=== PATIENT | female | born 1950 | race Two or more races ===

== ENCOUNTER → 2016-11-15 | Outpatient (CLI) | payer MEDICARE, BC ==
--- NOTE | 2016-11-15 18:49 | REP ---
LEFT LOWER EXTREMITY DUPLEX DOPPLER VENOUS ULTRASOUND WITH EVALUATION FOR VENOUS REFLUX: Real-time compression and duplex Doppler interrogation of left lower extremity deep venous system is performed. Left common femoral, superficial femoral and popliteal veins are fully compression with transducer pressure and demonstrate normal spontaneous and phasic flow without evidence of deep venous thrombosis. Evaluation for venous reflux in the left lower extremity demonstrates no reflux in the left common femoral vein, superficial femoral vein, or popliteal vein. There is an anterior accessory greater saphenous vein present. This measures 2 mm in diameter. There is reflux in that vein 1.7 seconds duration. There is reflux in the great saphenous vein at the saphenofemoral junction which measures 8 mm, duration 5.17 seconds. There is reflux in the greater saphenous vein at the midthigh level, AP diameter 10 mm. Duration 2.7 seconds. There is reflux in the greater saphenous vein at the level of the knee. AP diameter 6 mm. Duration 8.65 seconds. There is no reflux in the lesser saphenous vein which measures 3 mm in AP dimension. Multiple collateral vessels communicate with the greater saphenous vein which also demonstrate reflux. These collateral vessels communicate with the left lower extremity ulceration. Signed by Fercho Arcos MD 11/16/2016 04:38 P
== END ==
LOC: M RAD 12:54
PROVIDERS: ATTEND Surgery
DX: I87.312 Chronic venous hypertension (idiopathic) with ulcer of left lower extremity (principal)

== ENCOUNTER → 2016-11-30 | Outpatient (CLI) | payer MEDICARE, BC ==
--- NOTE | 2016-12-01 16:15 | REP ---
Left lower extremity arterial Doppler ultrasound: History: Peripheral vascular disease. Findings: Ankle brachial index could not be achieved because of vessel were noncompressible. Dorsalis pedis pulse persisted despite blood pressure cuff greater than 260. Triphasic flow is observed in the external iliac artery on the left. Monophasic flow was observed in the common femoral artery on the left and in all of the distal visualized arteries in the left lower extremity. The wave form and velocity images for the proximal superficial femoral and proximal common femoral artery were inadvertently or erroneously deleted by the ultrasound machine computer. The patient was contacted to return to the department however she declined at least for the time being. Peak systolic flow velocity in the profunda femoral artery is measured at 123.6 cm/sec. In the mid SFA peak systolic flow velocity was 21 centimeters per second. Distal SFA PSV 46, popliteal PSV 85, anterior tibial artery PSV 72, tibioperoneal trunk 38, proximal posterior tibial artery 33, no flow seen in the distal posterior tibial artery, anterior tibial artery distally 22. Impression: Monophasic flow seen throughout the left lower extremity distal to and including the common femoral artery. Triphasic normal flow was observed in the external iliac artery. This strongly suggests a potentially significant stenosis in the distal external iliac region. No flow seen in the distal posterior tibial artery suspicious for occlusion. 2 to 1 velocity ratio between distal SFA and popliteal may reflect greater than 50% stenosis. Consider MR angiography or contrast angiography. Signed by Yanick Waterman MD 12/01/2016 06:37 P
== END ==
LOC: M RAD 13:40
PROVIDERS: ATTEND Surgery Vascular Surgery
DX: I73.9 Peripheral vascular disease, unspecified (principal)

== ENCOUNTER → 2016-12-15 | Outpatient (CLI) | payer MEDICARE, BC ==
[2016-12-15 16:16] LABS: CALCIUM LEVEL 8.5 MG/DL (8.8-10.2); CREATININE FOR GFR 1.96 MG/DL (0.55-1.02); GLOMERULAR FILTRATION RATE 27.2 (>45); POTASSIUM SERUM 4.7 MEQ/L (3.5-5.1)
[2016-12-15 18:08] LABS: MEAN CORPUSCULAR HEMOGLOBIN 32.6 pg (27.0-33.0); MEAN CORPUSCULAR HGB CONC 35.1 g/dl (32.0-36.5); MEAN CORPUSCULAR VOLUME 93.1 fl (80.0-96.0); RED CELL DISTRIBUTION WIDTH 13.1 % (11.5-14.5); WHITE BLOOD COUNT 8.5 K/mm3 (4.0-10.0)
== END ==
LOC: M LAB 14:49
PROVIDERS: ATTEND Surgery Vascular Surgery
DX: I70.244 Atherosclerosis of native arteries of left leg with ulceration of heel and midfoot (principal)

== ENCOUNTER → 2016-12-21 | Outpatient (CLI) | payer MEDICARE, BC ==
[~2016-12-21] MED LIST: HEPARIN 1,000 UNITS/ML 10ML VIAL (FOR RADIOLOGY& DIALYSIS ONLY) As Ordered ONE; ISOVUE-300 61% 50ML VIAL (Q9967) As Ordered ONE; MIDAZOLAM INJ 2 MG/2 ML VIAL (J2250) As Ordered ONE; PROTAMINE SULF INJ 50 MG/5 ML VIAL (J2720) As Ordered ONE; fentaNYL 100 MCG/2 ML INJECTION (J3010) As Ordered ONE
--- NOTE | 2016-12-21 10:31 | REPKIM ---
DATE OF PROCEDURE: 12/21/2016 PREPROCEDURE DIAGNOSES: Chronic renal insufficiency. Left lower extremity venostasis ulceration. Left lower extremity superficial femoral arterial atherosclerotic occlusive disease. Left lower extremity valvular insufficiency in the greater saphenous vein and accessory greater saphenous vein. POSTPROCEDURE DIAGNOSES: Chronic renal insufficiency. Left lower extremity venostasis ulceration. Left lower extremity superficial femoral arterial atherosclerotic occlusive disease. Left lower extremity valvular insufficiency in the greater saphenous vein and accessory greater saphenous vein. PROCEDURE: Selective left common femoral artery catheter placement with angiogram. Selective left superficial femoral artery catheter placement with angiogram. Left common femoral artery angioplasty with a 6 x 200 mm and 7 x 150 mm balloons. Left superficial femoral artery angioplasty with 6 x 200 and 7 x 150 mm balloons. Recanalization of occluded left superficial femoral artery. MYNX closure of the right common femoral arteriotomy. SURGEON: Dr. Mateo Durbin. TOBACCO CHECKOUT CLERK: Angelika Watters and Karen Salinas. ANESTHESIA: Local with sedation with 1 mg of Versed, 50 mcg of fentanyl and 10 mL of 2% lidocaine. FLUORO TIME: 5.4 minutes. CONTRAST: 7 mL of Isovue. TOTAL EXPOSURE: 133.3 milligray. Sedation time was from 8:15 a.m. to 9:10 a.m. with the sedation and cardiopulmonary monitoring performed by the RN in the room under my direct supervision and direction. I was present for and directed the entire case. HEPARIN: 7000 units, rhodamine 50 mg. IMPLANTS: Right common femoral arteriotomy closure with a #6-Portuguese MYNX closure device. COMPLICATIONS: None. DRAINS: None. SPECIMENS: None. INDICATION: The patient is a 66-year-old female with bilateral lower extremity valvular insufficiency with nonhealing left lower extremity venostasis ulcer. The patient has previously undergone angioplasty and stenting of the left superficial femoral artery. The patient has nonhealing of her left lower extremity wound and underwent an ultrasound which showed monophasic flow from the common femoral artery and throughout the remainder of the left lower extremity. The patient will undergo an angiograph with possible angioplasty and/or stent. Risks, benefits and alternative treatment options were discussed with the patient. Benefits included but were not limited to gnosticist of blood flow to the left lower extremity with healing of the venostasis ulcer. Alternative treatment options including but were not limited to no intervention. Risks included but were not limited to infection, bleeding, renal failure requiring hemodialysis, retroperitoneal hematoma, possible need for open surgical intervention, complications related to sedation, cerebral vascular accident, myocardial infarction, pulmonary embolus, deep venous thrombosis, loss of limb, loss of life, and poor outcome. The patient's questions were answered. The patient voices understanding of these risks, benefits and alternative treatment options. The patient accepts these risks and agrees to proceed with a left lower extremity angiogram with possible angioplasty and/or stent. DESCRIPTION OF PROCEDURE: Patient was taken to the angiography suite, placed supine on the angiography room table and then prepped and draped in a standard surgical fashion. A time-out was then conducted by myself and the team members within the room confirming the correct patient, procedure and laterality. The common femoral artery was then cannulated with an entry needle after anesthetizing the overlying skin with 2% lidocaine. The patient had a large pannus and a long needle was required to access the femoral artery. The [employer] wire was then advanced through the entry needle, which was up-sized to a #5-Portuguese sheath. An Omni Flush catheter was advanced up and over the bifurcation and placed in the left common femoral artery and an angiogram was performed. This showed complete occlusion of the superficial femoral artery at its origin with reconstitution of the superficial femoral artery just above the previously placed stent via collaterals. There was instant stenosis of approximately 60%. There was no visualization below this level secondary to contrast limitations. A superficial femoral artery was then recannulized with re-entry into the superficial femoral artery. A catheter was placed in the superficial femoral artery and an angiogram performed confirming intraluminal positioning, which was noted, after which the superficial femoral and common femoral artery were angioplastied with a 6 x 200 mm balloon. A completion angiogram showed residual stenosis at the junction of the superficial femoral artery and extending along the superficial femoral artery to the previously placed stent. The common femoral and superficial femoral artery were further angioplastied with a 7 x 150 mm balloon with a completion angiogram showing resolution of the stenosis and good flow through the common femoral into the superficial femoral artery and down the mid thigh, where again, no further visualization was performed due to contrast limitations. The catheters and wires were removed and a MYNX closure device was used to close the arteriotomy and the right common femoral artery with an additional 10 minutes of adjunctive pressure applied for hemostasis. Dressings were then applied. The patient tolerated the procedure well. All instrument, sponge, and needle counts were correct at the end of the case. There were no complications. Dr. Durbin was present for and directed the entire case. The patient was transferred to the holding area and subsequently discharged in stable condition. RADIOLOGIC SUPERVISION INTERPRETATION: The initial selective left common femoral artery catheter angiogram showed retrograde filling of the external, internal and common iliac arteries which were widely patent. The common femoral artery showed some calcific disease in its mid portion but there appeared to be no significant occlusive disease. The profunda femoris artery was small in caliber and showed mild luminal irregularities with collaterals reconstituting the superficial femoral artery just above the previously placed stent. The superficial femoral artery occluded at its origin. There was no aortogram or distal runoff performed due to contrast limitations. The superficial femoral artery was then recannulized with re-entry into the patent superficial femoral artery just above the stent. A catheter was placed in the superficial femoral artery and an angiogram performed confirming intraluminal positioning after which the superficial femoral and common femoral arteries were angioplastied with a 6 x 200 mm balloon. The followup angiogram showed residual stenosis in the superficial femoral artery from the stent extending back to the origin at the common femoral artery. The common femoral artery and superficial femoral artery were then angioplastied with a 7 x 150 mm balloon with a prolonged inflation time after which the followup angiogram showed resolution of the stenosis with good flow through the common femoral artery into the superficial femoral artery and into the upper thigh with no visualization below this point, again secondary to the patient's chronic renal insufficiency and contrast limitations. A MYNX closure device was used to close the arteriotomy in the right common femoral artery.
== END | disposition home or self-care (01) ==
LOC: M IRPRO 06:54
PROVIDERS: ATTEND Surgery Vascular Surgery
DX: I70.25 Atherosclerosis of native arteries of other extremities with ulceration (principal); L98.499 Non-pressure chronic ulcer of skin of other sites with unspecified severity; I87.2 Venous insufficiency (chronic) (peripheral); N18.9 Chronic kidney disease, unspecified
CPT/HCPCS: 37224; 75710; 99152; 99153; C1725; C1760; C1769; C1887; C1894; J2250; J2720; J3010; Q9967

== ENCOUNTER → 2017-01-31 | Outpatient (REF) | payer MEDICARE, BC | LOC: M LAB REF 16:27 | PROVIDERS: ATTEND Surgery | DX: E11.621 Type 2 diabetes mellitus with foot ulcer (principal) ==

== ENCOUNTER → 2017-02-04 | Outpatient (CLI) | payer MEDICARE, BC ==
--- NOTE | 2017-02-04 12:03 | REP ---
Left lower extremity arterial Doppler duplex ultrasound: History: Status post angioplasty on the left. Comparison study is from November 30, 2016. This prior study showed evidence suggestive of stenosis in the distal external iliac. Comparison is made with imaging from December 21, 2016. Findings: Ankle brachial indices could not be obtained because of noncompressible distal vessels. Monophasic flow is again observed throughout the left lower extremity arterial tracings from common femoral artery distal. Image and study quality were inhibited by patient body habitus and lower extremity edema. There appears to be stent material in the superficial femoral artery proximally. Velocity chart: Left leg: Left BONER MEAT 151 cm/s Left profunda 132 Proximal SFA 100 proximally to 190 Mid SFA 104 Distal SFA 185 Popliteal 190 Proximal APA 57 t Tibioperoneal trunk 146 Proximal posterior tibial artery not seen. Distal posterior tibial artery question collateral 10 Anterior tibial artery distally 42 Impression: Limited image quality due to patient body habitus and lower extremity edema. Abnormal monophasic flow persists in the left lower extremity arterial system. Signed by Yanick Waterman MD 02/04/2017 01:13 P
== END ==
LOC: M RAD 09:23
PROVIDERS: ATTEND Surgery Vascular Surgery
DX: I70.212 Atherosclerosis of native arteries of extremities with intermittent claudication, left leg (principal)

== ENCOUNTER → 2017-03-01 | Outpatient (REF) | payer MEDICARE, BC ==
[2017-03-01 15:00] LABS: CREATININE FOR GFR 1.7 MG/DL (0.55-1.02)
== END ==
LOC: M LAB REF 13:38
PROVIDERS: ATTEND Surgery
DX: E11.621 Type 2 diabetes mellitus with foot ulcer (principal); L97.822 Non-pressure chronic ulcer of other part of left lower leg with fat layer exposed

== ENCOUNTER → 2017-03-16 | Outpatient (CLI) | payer MEDICARE, BC ==
[~2017-03-16] MED LIST changes: -HEPARIN 1,000 UNITS/ML 10ML VIAL (FOR RADIOLOGY& DIALYSIS ONLY) As Ordered ONE; -ISOVUE-300 61% 50ML VIAL (Q9967) As Ordered ONE; -MIDAZOLAM INJ 2 MG/2 ML VIAL (J2250) As Ordered ONE; +PROHANCE 279.3MG/ML 15ML VIAL (A9576) As Ordered ONE; -PROTAMINE SULF INJ 50 MG/5 ML VIAL (J2720) As Ordered ONE; -fentaNYL 100 MCG/2 ML INJECTION (J3010) As Ordered ONE
--- NOTE | 2017-03-16 20:02 | REP ---
MRI LEFT ANKLE WITH AND WITHOUT CONTRAST: Multiple sequences obtained prior to and following the intravenous administration of 24.5 mL ProHance. Reportedly there is an ulcer at the left heel. Diffuse superficial soft tissue edema is seen. This is more so medially. There is some mild scattered ill-defined enhancement in the medial soft tissues suggesting an element of cellulitis. No abscess collection is seen. The distal tibia and fibula demonstrate normal marrow signal, as does the talus and calcaneus. There is no abnormal marrow enhancement and no evidence of osteomyelitis. The visualized tendons and ligaments at the ankle appear intact. IMPRESSION: Superficial soft tissue edema at the ankle with mild ill-defined enhancement in the medial soft tissues suggesting an element of cellulitis. There also appears to be some cellulitis in the region of the soft tissues of the heel. No evidence of osteomyelitis or abscess. Signed by Fercho Arcos MD 03/17/2017 08:31 P
--- NOTE | 2017-03-16 20:16 | REP ---
MRI LEFT FOOT WITH AND WITHOUT CONTRAST: TECHNIQUE: Multiple sequences obtained in the axial, coronal and sagittal planes prior to and following the intravenous administration of 24.5 mL ProHance. I do not see significant marrow edema. There is no abnormal marrow enhancement. There is no evidence of osteomyelitis in the bones of the foot. Plantar tendon is intact. Flexor and extensor tendons of the foot appear intact with no tenosynovitis. There is scattered ill-defined edema in the superficial soft tissues more so in the dorsal aspect of the midfoot and forefoot. Some of these areas demonstrate ill-defined enhancement suggesting cellulitis. No abscess or other fluid collection is seen. IMPRESSION: Soft tissue edema with areas of enhancement dorsally in the mid to forefoot and also medially in the hindfoot, and in the heel. This suggests cellulitis. No abscess or osteomyelitis of the left foot. Signed by Fercho Arcos MD 03/17/2017 08:31 P
== END ==
LOC: M RAD 09:54
PROVIDERS: ATTEND Surgery
DX: E11.621 Type 2 diabetes mellitus with foot ulcer (principal); M85.872 Other specified disorders of bone density and structure, left ankle and foot
CPT/HCPCS: 73720; 73723; A9576

== ENCOUNTER → 2017-04-22 | Outpatient (CLI) | payer MEDICARE, BC ==
[~2017-04-22] MED LIST changes: +HEPARIN 1,000 UNITS/ML 10ML VIAL (FOR RADIOLOGY& DIALYSIS ONLY) As Ordered; +ISOVUE-300 61% 50ML VIAL (Q9967) As Ordered; +LIDOCAINE 2% MDV 20 ML VIAL As Ordered; +MIDAZOLAM INJ 2 MG/2 ML VIAL (J2250) As Ordered; -PROHANCE 279.3MG/ML 15ML VIAL (A9576) As Ordered ONE; +fentaNYL 100 MCG/2 ML INJECTION (J3010) As Ordered
== END | disposition home or self-care (01) ==
LOC: M IRPRO 09:06
DX: I77.9 Disorder of arteries and arterioles, unspecified (principal); L97.929 Non-pressure chronic ulcer of unspecified part of left lower leg with unspecified severity; I87.2 Venous insufficiency (chronic) (peripheral)
CPT/HCPCS: 37225

== ENCOUNTER → 2017-05-13 | Outpatient (CLI) | payer MEDICARE, BC ==
[~2017-05-13] MED LIST changes: +ACETAMINOPHEN 325 MG TAB As Ordered; -LIDOCAINE 2% MDV 20 ML VIAL As Ordered; +PROTAMINE SULF INJ 50 MG/5 ML VIAL (J2720) As Ordered
== END | disposition home or self-care (01) ==
LOC: M IRPRO 06:43
DX: I70.291 Other atherosclerosis of native arteries of extremities, right leg (principal); I87.2 Venous insufficiency (chronic) (peripheral); I87.391 Chronic venous hypertension (idiopathic) with other complications of right lower extremity; L03.115 Cellulitis of right lower limb
CPT/HCPCS: 36247

== ENCOUNTER 2017-06-13 15:04 | Emergency (ER) | payer MEDICARE, BC ==
[2017-06-13 16:10] LABS: BASO % 0.5 % (0.0-1.0); EOS # 0.3 10^3/uL (0.0-0.50); EOS % 4.1 % (0.0-3.0); HEMATOCRIT 31.4 % (36.0-47.0); HEMOGLOBIN 10.2 g/dl (12.0-16.0); IMMATURE GRANULOCYTE % 0.3 % (0-3.0); LYMPH % 26.6 % (24.0-44.0); MEAN CORPUSCULAR HEMOGLOBIN 31.3 pg (27.0-33.0); MEAN CORPUSCULAR HGB CONC 32.5 g/dl (32.0-36.5); MEAN CORPUSCULAR VOLUME 96.3 fl (80.0-96.0); MONO # 0.6 10^3/uL (0.0-0.8); MONO % 7.2 % (0.0-5.0); NEUTROPHILS # 4.7 10^3/uL (1.8-7.7); NEUTROPHILS % 61.3 % (36.0-66.0); PLATELET COUNT, AUTOMATED 227 10^3/uL (150-450); RED BLOOD COUNT 3.26 10^6/uL (4.00-5.40); RED CELL DISTRIBUTION WIDTH 14.2 % (11.5-14.5); WHITE BLOOD COUNT 7.6 10^3/uL (4.0-10.0)
[2017-06-13 16:19] LABS: ANION GAP 8 MEQ/L (8-16); BLOOD UREA NITROGEN 43 MG/DL (7-18); CALCIUM LEVEL 9.1 MG/DL (8.8-10.2); CARBON DIOXIDE LEVEL 26 MEQ/L (21-32); CHLORIDE LEVEL 108 MEQ/L (98-107); CREATININE FOR GFR 1.36 MG/DL (0.55-1.30); GLOMERULAR FILTRATION RATE 41.3 (>45); GLUCOSE, FASTING 62 MG/DL (70-100); POTASSIUM SERUM 4.7 MEQ/L (3.5-5.1); SODIUM LEVEL 142 MEQ/L (136-145)
[2017-06-13 17:01] LABS: APPEARANCE, URINE CLEAR (CLEAR); BACTERIA, URINE AUTO NEGATIVE (NEGATIVE); BILIRUBIN, URINE AUTO NEGATIVE (NEGATIVE); BLOOD, URINE BLOOD NEGATIVE (NEGATIVE); COLOR, URINE STRAW (YELLOW); GLUCOSE, URINE (UA) AUTO NEGATIVE (NEGATIVE); KETONE, URINE AUTO NEGATIVE (NEGATIVE); LEUKOCYTE ESTERASE, URINE AUTO NEGATIVE (NEGATIVE); NITRITE, URINE AUTO NEGATIVE (NEGATIVE); PROTEIN, URINE AUTO NEGATIVE (NEGATIVE); RBC, URINE AUTO 1 /HPF (0-3); SPECIFIC GRAVITY URINE AUTO 1.014 (1.002-1.035); SQUAMOUS EPITHELIAL CELL UR AU 1 /HPF (0-6); UROBILINOGEN, URINE AUTO 0.2 mg/dL (0.0-2.0); WBC, URINE AUTO 0 /HPF (0-3)
== END 2017-06-13 17:46 | disposition home or self-care (01) ==
LOC: M ED 15:04
DX: I10 Essential (primary) hypertension (principal); R00.1 Bradycardia, unspecified; I44.0 Atrioventricular block, first degree; E10.9 Type 1 diabetes mellitus without complications; Z95.5 Presence of coronary angioplasty implant and graft; Z79.4 Long term (current) use of insulin; Z79.899 Other long term (current) drug therapy; Z88.8 Allergy status to other drugs, medicaments and biological substances
CPT/HCPCS: 93005

== ENCOUNTER → 2017-08-03 | Outpatient (CLI) | payer MEDICARE, BC | LOC: M RAD 09:47 | DX: I70.249 Atherosclerosis of native arteries of left leg with ulceration of unspecified site (principal) | CPT/HCPCS: 93923 ==

== ENCOUNTER 2017-08-26 07:54 | Inpatient (IN) | payer MEDICARE, BC ==
[~2017-08-26 07:54] MED LIST changes: -ACETAMINOPHEN 325 MG TAB As Ordered; -MIDAZOLAM INJ 2 MG/2 ML VIAL (J2250) As Ordered; -PROTAMINE SULF INJ 50 MG/5 ML VIAL (J2720) As Ordered; -fentaNYL 100 MCG/2 ML INJECTION (J3010) As Ordered
[2017-08-26] MEDS ORDERED: MIDAZOLAM INJ 2 MG/2 ML VIAL (J2250) As Ordered (09:38)
[2017-08-26] MEDS ORDERED: fentaNYL 100 MCG/2 ML INJECTION (J3010) As Ordered (09:38)
[2017-08-26] MEDS ORDERED: ONDANSETRON 4MG/2ML VIAL (J2405) IV (16:15)
[2017-08-26] MEDS ORDERED: MOM 30ML SUSPENSION UDC PO (16:15)
[2017-08-26] MEDS ORDERED: ACETAMINOPHEN TAB 650MG DOSE (2X325MG) PO (16:15)
[2017-08-26] MEDS ORDERED: BISACODYL 10 MG SUPP PR (16:15)
[2017-08-26 18:05] LABS: BASO % 0.3 % (0.0-1.0); EOS # 0.2 10^3/uL (0.0-0.50); EOS % 1.5 % (0.0-3.0); HEMATOCRIT 33.1 % (36.0-47.0); HEMOGLOBIN 10.9 g/dl (12.0-15.5); IMMATURE GRANULOCYTE % 0.4 % (0-3.0); LYMPH # 1.2 10^3/uL (1.5-4.5); LYMPH % 12.1 % (24.0-44.0); MEAN CORPUSCULAR HEMOGLOBIN 30.4 pg (27.0-33.0); MEAN CORPUSCULAR HGB CONC 32.9 g/dl (32.0-36.5); MEAN CORPUSCULAR VOLUME 92.5 fl (80.0-96.0); MONO # 0.6 10^3/uL (0.0-0.8); MONO % 6.5 % (0.0-5.0); NEUTROPHILS # 7.8 10^3/uL (1.8-7.7); NEUTROPHILS % 79.2 % (36.0-66.0); PLATELET COUNT, AUTOMATED 252 10^3/uL (150-450); RED BLOOD COUNT 3.58 10^6/uL (4.00-5.40); RED CELL DISTRIBUTION WIDTH 11.8 % (11.5-14.5); WHITE BLOOD COUNT 9.9 10^3/uL (4.0-10.0)
[2017-08-26 18:22] LABS: ALBUMIN 3.1 GM/DL (3.2-5.2); ALKALINE PHOSPHATASE 59 U/L (45-117); ALT/SGPT 12 U/L (12-78); ANION GAP 5 MEQ/L (8-16); AST/SGOT 9 U/L (7-37); BILIRUBIN,TOTAL 0.4 MG/DL (0.2-1.0); BLOOD UREA NITROGEN 48 MG/DL (7-18); CALCIUM LEVEL 8.9 MG/DL (8.8-10.2); CARBON DIOXIDE LEVEL 28 MEQ/L (21-32); CHLORIDE LEVEL 105 MEQ/L (98-107); CREATININE FOR GFR 1.47 MG/DL (0.55-1.30); GLOMERULAR FILTRATION RATE 37.7 (>45); GLUCOSE, FASTING 134 MG/DL (70-100); POTASSIUM SERUM 4.4 MEQ/L (3.5-5.1); SODIUM LEVEL 138 MEQ/L (136-145); TOTAL PROTEIN 7.5 GM/DL (6.4-8.2)
[2017-08-26] MEDS: SENOKOT S TAB PO (20:00)
[2017-08-26] MEDS: DOCUSATE SODIUM 100 MG CAP PO (20:00)
[2017-08-26] MEDS: PIPERACILLIN/TAZOBACTAM SOD 3.375 GM in D5W MINI-BAG PLUS 50 ML IV (20:01)
[2017-08-27] MEDS: PIPERACILLIN/TAZOBACTAM SOD 3.375 GM in D5W MINI-BAG PLUS 50 ML IV ×4 (02:04→22:10)
[2017-08-27 06:54] LABS: BEDSIDE GLUCOSE 117 MG/DL (80-115)
[2017-08-27] MEDS: DOCUSATE SODIUM 100 MG CAP PO ×2 (09:00→20:11)
[2017-08-27] MEDS: SENOKOT S TAB PO ×2 (09:00→20:11)
[2017-08-27 20:35] LABS: BEDSIDE GLUCOSE 233 MG/DL (80-115)
[2017-08-28] MEDS: PIPERACILLIN/TAZOBACTAM SOD 3.375 GM in D5W MINI-BAG PLUS 50 ML IV ×4 (03:08→19:51)
[2017-08-28] MEDS: LEVOTHYROXINE 25MCG TABLET (0.025MG) PO (06:00)
[2017-08-28] MEDS: SENOKOT S TAB PO ×2 (08:50→19:51)
[2017-08-28] MEDS: DOCUSATE SODIUM 100 MG CAP PO ×2 (08:50→19:51)
[2017-08-28] MEDS: FERROUS SULFATE 325MG TAB PO (10:24)
[2017-08-28] MEDS: LOSARTAN 50 MG TAB PO (10:24)
[2017-08-28] MEDS: hydroCHLOROthiazide 12.5 MG CAPSULE PO (10:24)
[2017-08-28] MEDS: LEVEMIR (INSULIN DETEMIR) 1 UNITS/0.01ML SC (10:25)
[2017-08-28] MEDS: FUROSEMIDE 40 MG TAB PO (10:25)
[2017-08-28] MEDS: VITAMIN D 1,000 INTERNATIONAL UNITS TABLET PO (10:25)
[2017-08-28] MEDS: PENTOXIFYLLINE 400 MG TAB PO ×2 (14:47→19:51)
[2017-08-28] MEDS: SIMVASTATIN 40 MG TAB PO (19:51)
[2017-08-28] MEDS: ASPIRIN ENTERIC 325 MG TAB PO (19:51)
[2017-08-29] MEDS: PIPERACILLIN/TAZOBACTAM SOD 3.375 GM in D5W MINI-BAG PLUS 50 ML IV ×4 (02:38→19:53)
[2017-08-29] MEDS: LEVOTHYROXINE 25MCG TABLET (0.025MG) PO (05:46)
[2017-08-29] MEDS: LEVEMIR (INSULIN DETEMIR) 1 UNITS/0.01ML SC (08:51)
[2017-08-29] MEDS: hydroCHLOROthiazide 12.5 MG CAPSULE PO (08:51)
[2017-08-29] MEDS: PENTOXIFYLLINE 400 MG TAB PO ×2 (08:51→19:53)
[2017-08-29] MEDS: FUROSEMIDE 40 MG TAB PO (08:51)
[2017-08-29] MEDS: FERROUS SULFATE 325MG TAB PO (08:52)
[2017-08-29] MEDS: VITAMIN D 1,000 INTERNATIONAL UNITS TABLET PO (08:52)
[2017-08-29] MEDS: LOSARTAN 50 MG TAB PO (08:52)
[2017-08-29] MEDS: SENOKOT S TAB PO ×2 (08:53→19:54)
[2017-08-29] MEDS: DOCUSATE SODIUM 100 MG CAP PO ×2 (08:53→19:54)
[2017-08-29 11:41] LABS: BEDSIDE GLUCOSE 156 MG/DL (80-115)
[2017-08-29] MEDS: SIMVASTATIN 40 MG TAB PO (19:53)
[2017-08-29] MEDS: ASPIRIN ENTERIC 325 MG TAB PO (19:53)
[2017-08-30] MEDS: PIPERACILLIN/TAZOBACTAM SOD 3.375 GM in D5W MINI-BAG PLUS 50 ML IV ×4 (02:20→22:05)
[2017-08-30] MEDS: LEVOTHYROXINE 25MCG TABLET (0.025MG) PO (05:23)
[2017-08-30 07:34] LABS: BEDSIDE GLUCOSE 124 MG/DL (80-115)
[2017-08-30] MEDS: DOCUSATE SODIUM 100 MG CAP PO ×2 (07:45→22:04)
[2017-08-30] MEDS: SENOKOT S TAB PO ×2 (07:46→22:02)
[2017-08-30] MEDS: VITAMIN D 1,000 INTERNATIONAL UNITS TABLET PO (08:04)
[2017-08-30] MEDS: LEVEMIR (INSULIN DETEMIR) 1 UNITS/0.01ML SC (08:04)
[2017-08-30] MEDS: PENTOXIFYLLINE 400 MG TAB PO ×2 (08:04→22:02)
[2017-08-30] MEDS: LOSARTAN 50 MG TAB PO (08:05)
[2017-08-30] MEDS: hydroCHLOROthiazide 12.5 MG CAPSULE PO (08:05)
[2017-08-30] MEDS: FERROUS SULFATE 325MG TAB PO (08:05)
[2017-08-30] MEDS ORDERED: ISOVUE-300 61% 50ML VIAL (Q9967) As Ordered (14:23)
[2017-08-30] MEDS ORDERED: fentaNYL 100 MCG/2 ML INJECTION (J3010) As Ordered (14:37)
[2017-08-30] MEDS ORDERED: MIDAZOLAM INJ 2 MG/2 ML VIAL (J2250) As Ordered (14:38)
[2017-08-30] MEDS ORDERED: HEPARIN 1,000 UNITS/ML 10ML VIAL (FOR RADIOLOGY& DIALYSIS ONLY) As Ordered (14:53)
[2017-08-30] MEDS: ACETAMINOPHEN 650MG ER TAB (TYLENOL ARTHRITIS) PO (22:01)
[2017-08-30] MEDS: SIMVASTATIN 40 MG TAB PO (22:04)
[2017-08-30] MEDS: ASPIRIN ENTERIC 325 MG TAB PO (22:04)
[2017-08-30] MEDS: NS 1,000 ML IV (22:05)
[2017-08-31] MEDS: PIPERACILLIN/TAZOBACTAM SOD 3.375 GM in D5W MINI-BAG PLUS 50 ML IV ×4 (02:56→20:12)
[2017-08-31 06:50] LABS: HEMATOCRIT 28.5 % (36.0-47.0); HEMOGLOBIN 9.5 g/dl (12.0-15.5); MEAN CORPUSCULAR HEMOGLOBIN 30.6 pg (27.0-33.0); MEAN CORPUSCULAR HGB CONC 33.3 g/dl (32.0-36.5); MEAN CORPUSCULAR VOLUME 91.9 fl (80.0-96.0); PLATELET COUNT, AUTOMATED 236 10^3/uL (150-450); RED CELL DISTRIBUTION WIDTH 11.9 % (11.5-14.5); WHITE BLOOD COUNT 10.4 10^3/uL (4.0-10.0)
[2017-08-31] MEDS: LEVOTHYROXINE 25MCG TABLET (0.025MG) PO (06:58)
[2017-08-31 07:18] LABS: ALBUMIN 2.5 GM/DL (3.2-5.2); ALBUMIN/GLOBULIN RATIO 0.57 (1.00-1.93); ALKALINE PHOSPHATASE 49 U/L (45-117); ALT/SGPT 9 U/L (12-78); ANION GAP 11 MEQ/L (8-16); AST/SGOT 4 U/L (7-37); BILIRUBIN,TOTAL 0.2 MG/DL (0.2-1.0); BLOOD UREA NITROGEN 35 MG/DL (7-18); CALCIUM LEVEL 8.6 MG/DL (8.8-10.2); CARBON DIOXIDE LEVEL 24 MEQ/L (21-32); CHLORIDE LEVEL 108 MEQ/L (98-107); CREATININE FOR GFR 1.82 MG/DL (0.55-1.30); GLOMERULAR FILTRATION RATE 29.5 (>45); GLUCOSE, FASTING 181 MG/DL (70-100); POTASSIUM SERUM 3.7 MEQ/L (3.5-5.1); SODIUM LEVEL 143 MEQ/L (136-145); TOTAL PROTEIN 6.9 GM/DL (6.4-8.2)
[2017-08-31] MEDS: LOSARTAN 50 MG TAB PO (08:07)
[2017-08-31] MEDS: LEVEMIR (INSULIN DETEMIR) 1 UNITS/0.01ML SC (09:00)
[2017-08-31] MEDS: BUPIVACAINE HCL 0.5% 10 ML VIAL As Ordered (09:18)
[2017-08-31] MEDS: LIDOCAINE 1% MDV 20ML VIAL As Ordered (09:18)
[2017-08-31] MEDS ORDERED: MIDAZOLAM INJ 2 MG/2 ML VIAL (J2250) As Ordered (09:25)
[2017-08-31] MEDS ORDERED: LIDOCAINE 2% INJ 100 MG/5 ML SDV (FOR ANES.) As Ordered (09:25)
[2017-08-31] MEDS ORDERED: PROPOFOL 200 MG/20 ML VIAL As Ordered (09:25)
[2017-08-31 09:37] LABS: BEDSIDE GLUCOSE 152 MG/DL (80-115)
[2017-08-31] MEDS ORDERED: PERCOCET 5MG/325MG TAB PO (10:00)
[2017-08-31] MEDS: LR 1,000 ML IV (10:00)
[2017-08-31] MEDS ORDERED: ONDANSETRON 4MG/2ML VIAL (J2405) IV (10:00)
[2017-08-31] MEDS ORDERED: fentaNYL 100 MCG/2 ML INJECTION (J3010) IV (10:00)
[2017-08-31] MEDS: DOCUSATE SODIUM 100 MG CAP PO ×2 (10:33→20:13)
[2017-08-31] MEDS: FERROUS SULFATE 325MG TAB PO (10:33)
[2017-08-31] MEDS: VITAMIN D 1,000 INTERNATIONAL UNITS TABLET PO (10:33)
[2017-08-31] MEDS: PENTOXIFYLLINE 400 MG TAB PO ×2 (10:33→20:13)
[2017-08-31] MEDS: SENOKOT S TAB PO ×2 (10:34→20:12)
[2017-08-31] MEDS: FUROSEMIDE 40 MG TAB PO (10:34)
[2017-08-31] MEDS: hydroCHLOROthiazide 12.5 MG CAPSULE PO (10:34)
[2017-08-31] MEDS: NS 1,000 ML IV ×2 (11:00→15:00)
[2017-08-31] MEDS: SIMVASTATIN 40 MG TAB PO (20:12)
[2017-08-31] MEDS: ACETAMINOPHEN 650MG ER TAB (TYLENOL ARTHRITIS) PO (20:13)
[2017-08-31] MEDS: ASPIRIN ENTERIC 325 MG TAB PO (20:13)
[2017-09-01] MEDS: PIPERACILLIN/TAZOBACTAM SOD 3.375 GM in D5W MINI-BAG PLUS 50 ML IV ×4 (01:49→20:55)
[2017-09-01] MEDS: ACETAMINOPHEN 650MG ER TAB (TYLENOL ARTHRITIS) PO ×2 (06:34→21:00)
[2017-09-01] MEDS: LEVOTHYROXINE 25MCG TABLET (0.025MG) PO (06:34)
[2017-09-01] MEDS: DAKIN'S 0.25% HALF-STRENGTH SOLN 480 ML TOP ×3 (06:35→21:00)
[2017-09-01 06:39] LABS: HEMATOCRIT 27.9 % (36.0-47.0); HEMOGLOBIN 9.3 g/dl (12.0-15.5); MEAN CORPUSCULAR HEMOGLOBIN 30.5 pg (27.0-33.0); MEAN CORPUSCULAR HGB CONC 33.3 g/dl (32.0-36.5); MEAN CORPUSCULAR VOLUME 91.5 fl (80.0-96.0); PLATELET COUNT, AUTOMATED 222 10^3/uL (150-450); RED BLOOD COUNT 3.05 10^6/uL (4.00-5.40); RED CELL DISTRIBUTION WIDTH 11.8 % (11.5-14.5); WHITE BLOOD COUNT 9.6 10^3/uL (4.0-10.0)
[2017-09-01 07:02] LABS: ANION GAP 5 MEQ/L (8-16); BLOOD UREA NITROGEN 35 MG/DL (7-18); CALCIUM LEVEL 8.6 MG/DL (8.8-10.2); CARBON DIOXIDE LEVEL 27 MEQ/L (21-32); CHLORIDE LEVEL 108 MEQ/L (98-107); CREATININE FOR GFR 1.83 MG/DL (0.55-1.30); GLOMERULAR FILTRATION RATE 29.3 (>45); GLUCOSE, FASTING 96 MG/DL (70-100); POTASSIUM SERUM 3.8 MEQ/L (3.5-5.1); SODIUM LEVEL 140 MEQ/L (136-145)
[2017-09-01 07:03] LABS: IRON (FE) 37 UG/DL (50-170); PERCENT SATURATION 17.5 % (13.2-45.0); TOTAL IRON BINDING CAPACITY 212 UG/DL (250-450)
[2017-09-01] MEDS ORDERED: DAKIN'S 0.25% HALF-STRENGTH SOLN 480 ML TOP (08:00)
[2017-09-01] MEDS: SENOKOT S TAB PO ×2 (08:52→21:00)
[2017-09-01] MEDS: FERROUS SULFATE 325MG TAB PO (08:52)
[2017-09-01] MEDS: LEVEMIR (INSULIN DETEMIR) 1 UNITS/0.01ML SC (08:52)
[2017-09-01] MEDS: DOCUSATE SODIUM 100 MG CAP PO ×2 (08:53→21:00)
[2017-09-01] MEDS: VITAMIN D 1,000 INTERNATIONAL UNITS TABLET PO (08:53)
[2017-09-01] MEDS: PENTOXIFYLLINE 400 MG TAB PO ×2 (08:53→20:59)
[2017-09-01] MEDS: amLODIPine 5 MG TAB PO (08:53)
[2017-09-01] MEDS: ASPIRIN ENTERIC 325 MG TAB PO (20:59)
[2017-09-01] MEDS: SIMVASTATIN 40 MG TAB PO (20:59)
[2017-09-02] MEDS: PIPERACILLIN/TAZOBACTAM SOD 3.375 GM in D5W MINI-BAG PLUS 50 ML IV ×4 (02:32→20:33)
[2017-09-02] MEDS: LEVOTHYROXINE 25MCG TABLET (0.025MG) PO (05:54)
[2017-09-02] MEDS: DAKIN'S 0.25% HALF-STRENGTH SOLN 480 ML TOP ×2 (05:55→14:00)
[2017-09-02 07:23] LABS: HEMOGLOBIN 8.5 g/dl (12.0-15.5); MEAN CORPUSCULAR HEMOGLOBIN 30.1 pg (27.0-33.0); MEAN CORPUSCULAR HGB CONC 32.7 g/dl (32.0-36.5); MEAN CORPUSCULAR VOLUME 92.2 fl (80.0-96.0); PLATELET COUNT, AUTOMATED 219 10^3/uL (150-450); RED BLOOD COUNT 2.82 10^6/uL (4.00-5.40); RED CELL DISTRIBUTION WIDTH 11.8 % (11.5-14.5); WHITE BLOOD COUNT 8.3 10^3/uL (4.0-10.0)
[2017-09-02 07:44] LABS: ANION GAP 9 MEQ/L (8-16); BLOOD UREA NITROGEN 35 MG/DL (7-18); CALCIUM LEVEL 8.3 MG/DL (8.8-10.2); CARBON DIOXIDE LEVEL 26 MEQ/L (21-32); CHLORIDE LEVEL 107 MEQ/L (98-107); CREATININE FOR GFR 1.83 MG/DL (0.55-1.30); GLOMERULAR FILTRATION RATE 29.3 (>45); GLUCOSE, FASTING 86 MG/DL (70-100); POTASSIUM SERUM 3.5 MEQ/L (3.5-5.1); SODIUM LEVEL 142 MEQ/L (136-145)
[2017-09-02] MEDS: SENOKOT S TAB PO ×3 (09:00→20:36)
[2017-09-02] MEDS: DOCUSATE SODIUM 100 MG CAP PO ×3 (09:00→20:36)
[2017-09-02] MEDS: LEVEMIR (INSULIN DETEMIR) 1 UNITS/0.01ML SC (10:20)
[2017-09-02] MEDS: PENTOXIFYLLINE 400 MG TAB PO ×2 (10:20→20:34)
[2017-09-02] MEDS: FERROUS SULFATE 325MG TAB PO (10:20)
[2017-09-02] MEDS: VITAMIN D 1,000 INTERNATIONAL UNITS TABLET PO (10:20)
[2017-09-02] MEDS: amLODIPine 5 MG TAB PO (10:23)
[2017-09-02] MEDS: POTASSIUM CHLORIDE 10 MEQ SR TABLET PO (12:15)
[2017-09-02] MEDS: SIMVASTATIN 40 MG TAB PO (20:33)
[2017-09-02] MEDS: ASPIRIN ENTERIC 325 MG TAB PO (20:33)
[2017-09-03] MEDS: AUGMENTIN 875 MG TAB PO ×2 (00:49→08:23)
[2017-09-03] MEDS: DAKIN'S 0.25% HALF-STRENGTH SOLN 480 ML TOP ×3 (00:50→13:32)
[2017-09-03] MEDS: LEVOTHYROXINE 25MCG TABLET (0.025MG) PO (06:24)
[2017-09-03 07:09] LABS: HEMATOCRIT 31.4 % (36.0-47.0); HEMOGLOBIN 10.2 g/dl (12.0-15.5); MEAN CORPUSCULAR HEMOGLOBIN 30.1 pg (27.0-33.0); MEAN CORPUSCULAR HGB CONC 32.5 g/dl (32.0-36.5); MEAN CORPUSCULAR VOLUME 92.6 fl (80.0-96.0); PLATELET COUNT, AUTOMATED 284 10^3/uL (150-450); RED BLOOD COUNT 3.39 10^6/uL (4.00-5.40); RED CELL DISTRIBUTION WIDTH 11.9 % (11.5-14.5); WHITE BLOOD COUNT 10.5 10^3/uL (4.0-10.0)
[2017-09-03 07:20] LABS: ANION GAP 8 MEQ/L (8-16); BLOOD UREA NITROGEN 29 MG/DL (7-18); CALCIUM LEVEL 9.1 MG/DL (8.8-10.2); CARBON DIOXIDE LEVEL 26 MEQ/L (21-32); CHLORIDE LEVEL 108 MEQ/L (98-107); CREATININE FOR GFR 1.54 MG/DL (0.55-1.30); GLOMERULAR FILTRATION RATE 35.8 (>45); GLUCOSE, FASTING 80 MG/DL (70-100); POTASSIUM SERUM 3.7 MEQ/L (3.5-5.1); SODIUM LEVEL 142 MEQ/L (136-145)
[2017-09-03] MEDS: LEVEMIR (INSULIN DETEMIR) 1 UNITS/0.01ML SC (08:22)
[2017-09-03] MEDS: FERROUS SULFATE 325MG TAB PO (08:23)
[2017-09-03] MEDS: amLODIPine 5 MG TAB PO (08:23)
[2017-09-03] MEDS: PENTOXIFYLLINE 400 MG TAB PO (08:23)
[2017-09-03] MEDS: VITAMIN D 1,000 INTERNATIONAL UNITS TABLET PO (08:23)
[2017-09-03] MEDS: DOCUSATE SODIUM 100 MG CAP PO (08:25)
[2017-09-03] MEDS: SENOKOT S TAB PO (08:25)
== END 2017-09-03 16:15 | disposition home or self-care (01) | DRG 253 ==
LOC: M IRPRO 07:54 → M MS5PR 14:09
PROC: 0Y6R0Z0 Detachment at Right 2nd Toe, Complete, Open Approach (ICD-10-PCS; principal; 2017-08-31 09:11)
PROC: 047H3DZ Dilation of Right External Iliac Artery with Intraluminal Device, Percutaneous Approach (ICD-10-PCS; 2017-08-31 09:11)
PROC: 047K3DZ Dilation of Right Femoral Artery with Intraluminal Device, Percutaneous Approach (ICD-10-PCS; 2017-08-31 09:11)
PROC: 047M3DZ Dilation of Right Popliteal Artery with Intraluminal Device, Percutaneous Approach (ICD-10-PCS; 2017-08-31 09:11)
DX: I70.261 Atherosclerosis of native arteries of extremities with gangrene, right leg (principal); L03.115 Cellulitis of right lower limb; N17.9 Acute kidney failure, unspecified; N18.4 Chronic kidney disease, stage 4 (severe); E11.22 Type 2 diabetes mellitus with diabetic chronic kidney disease; I12.9 Hypertensive chronic kidney disease with stage 1 through stage 4 chronic kidney disease, or unspecified chronic kidney disease; E11.42 Type 2 diabetes mellitus with diabetic polyneuropathy; E11.319 Type 2 diabetes mellitus with unspecified diabetic retinopathy without macular edema; E78.5 Hyperlipidemia, unspecified; E03.9 Hypothyroidism, unspecified; E66.01 Morbid (severe) obesity due to excess calories; D63.1 Anemia in chronic kidney disease; E55.9 Vitamin D deficiency, unspecified; Z79.82 Long term (current) use of aspirin; Z79.4 Long term (current) use of insulin; Z79.899 Other long term (current) drug therapy; Z88.8 Allergy status to other drugs, medicaments and biological substances

== ENCOUNTER → 2017-09-12 | Outpatient (REF) | payer MEDICARE, BC | LOC: M LAB REF 16:39 | DX: M86.171 Other acute osteomyelitis, right ankle and foot (principal); E11.621 Type 2 diabetes mellitus with foot ulcer | CPT/HCPCS: 88305 ==

== ENCOUNTER → 2017-09-26 | Outpatient (REF) | payer MEDICARE, BC | LOC: M LAB REF 18:52 | DX: I96 Gangrene, not elsewhere classified (principal); M86.171 Other acute osteomyelitis, right ankle and foot (principal); M86.071 Acute hematogenous osteomyelitis, right ankle and foot | CPT/HCPCS: 88305 ==

== ENCOUNTER 2017-10-11 09:38 | Inpatient (IN) | payer MEDICARE, BC ==
[2017-10-11 10:59] LABS: BASO % 0.2 % (0.0-1.0); EOS # 0.1 10^3/uL (0.0-0.50); EOS % 0.3 % (0.0-3.0); HEMATOCRIT 33.6 % (36.0-47.0); HEMOGLOBIN 10.9 g/dl (12.0-15.5); IMMATURE GRANULOCYTE % 0.7 % (0-3.0); LYMPH # 1.4 10^3/uL (1.5-4.5); LYMPH % 7.2 % (24.0-44.0); MEAN CORPUSCULAR HGB CONC 32.4 g/dl (32.0-36.5); MEAN CORPUSCULAR VOLUME 92.6 fl (80.0-96.0); MONO # 1.1 10^3/uL (0.0-0.8); MONO % 5.9 % (0.0-5.0); NEUTROPHILS # 16.3 10^3/uL (1.8-7.7); NEUTROPHILS % 85.7 % (36.0-66.0); PLATELET COUNT, AUTOMATED 390 10^3/uL (150-450); RED BLOOD COUNT 3.63 10^6/uL (4.00-5.40); RED CELL DISTRIBUTION WIDTH 12.7 % (11.5-14.5)
[2017-10-11 11:11] LABS: INR 1.17; PROTHROMBIN TIME 15.1 SECONDS (12.1-14.4)
[2017-10-11 11:17] LABS: LACTIC ACID SEPSIS PROTOCOL 1.1 MMOL/L (0.4-2.0)
[2017-10-11 11:21] LABS: ALBUMIN 2.4 GM/DL (3.2-5.2); ALBUMIN/GLOBULIN RATIO 0.42 (1.00-1.93); ALKALINE PHOSPHATASE 104 U/L (45-117); ALT/SGPT 13 U/L (12-78); ANION GAP 7 MEQ/L (8-16); AST/SGOT 10 U/L (7-37); BILIRUBIN,DIRECT 0.1 MG/DL (0.0-0.2); BILIRUBIN,TOTAL 0.4 MG/DL (0.2-1.0); BLOOD UREA NITROGEN 28 MG/DL (7-18); CALCIUM LEVEL 9.2 MG/DL (8.8-10.2); CARBON DIOXIDE LEVEL 29 MEQ/L (21-32); CHLORIDE LEVEL 100 MEQ/L (98-107); CREATININE FOR GFR 1.44 MG/DL (0.55-1.30); GLOMERULAR FILTRATION RATE 38.7 (>45); GLUCOSE, FASTING 115 MG/DL (70-100); LIPASE 92 U/L (73-393); POTASSIUM SERUM 3.9 MEQ/L (3.5-5.1); SODIUM LEVEL 136 MEQ/L (136-145); TOTAL PROTEIN 8.1 GM/DL (6.4-8.2)
[2017-10-11 11:26] LABS: ERYTHROCYTE SEDIMENTATION RATE 116 mm/hr (0-30)
[2017-10-11] MEDS ORDERED: VANCOMYCIN HCL 750 MG, VIAL MATE ADAPTER 1 EACH in D5W 250 ML IV ×2 (12:00)
[2017-10-11] MEDS ORDERED: DEXTROSE 50% 50 ML SYRINGE IV ×2 (12:00)
[2017-10-11] MEDS ORDERED: GLUCAGON FOR INJ 1 MG VIAL (J1610) SC ×2 (12:00)
[2017-10-11] MEDS ORDERED: BISACODYL 5 MG TAB PO ×2 (12:00)
[2017-10-11] MEDS ORDERED: GLUCOSE 4 GM CHEW TABLET PO ×2 (12:00)
[2017-10-11 12:29] LABS: BEDSIDE GLUCOSE 112 MG/DL (80-115)
[2017-10-11] MEDS: HumaLOG INSULIN (NovoLOG) PER UNIT SC ×6 (12:35→21:06)
[2017-10-11] MEDS: DOCUSATE SODIUM 100 MG CAP PO ×4 (12:35→20:44)
[2017-10-11] MEDS ORDERED: PILL CRUSHER/CUTTER 1 EACH XX ×2 (13:00)
[2017-10-11] MEDS: PIPERACILLIN/TAZOBACTAM SOD 3.375 GM in D5W MINI-BAG PLUS 50 ML IV ×2 (13:26→20:42)
[2017-10-11] MEDS: VANCOMYCIN HCL 1,000 MG, VIAL MATE ADAPTER 1 EACH in D5W 250 ML IV ×4 (13:26→17:48)
[2017-10-11] MEDS: POTASSIUM CHLORIDE 10 MEQ SR TABLET PO ×2 (13:27)
[2017-10-11] MEDS: HEPARIN SOD (PORCINE) 5000 UNITS/ML VIAL SC ×4 (13:27→23:26)
[2017-10-11] MEDS: FUROSEMIDE 40 MG TAB PO ×2 (13:27)
[2017-10-11] MEDS: VITAMIN D 1,000 INTERNATIONAL UNITS TABLET PO ×2 (13:27)
[2017-10-11] MEDS: LEVEMIR (INSULIN DETEMIR) 1 UNITS/0.01ML SC ×2 (13:28)
[2017-10-11] MEDS: ACETAMINOPHEN TAB 650MG DOSE (2X325MG) PO ×4 (15:25→20:45)
[2017-10-11] MEDS: PENTOXIFYLLINE 400 MG TAB PO ×4 (16:25→21:53)
[2017-10-11 17:21] LABS: BEDSIDE GLUCOSE 137 MG/DL (80-115)
[2017-10-11 20:34] LABS: BEDSIDE GLUCOSE 142 MG/DL (80-115)
[2017-10-11] MEDS: ROSUVASTATIN 10 MG TAB (CRESTOR) PO ×2 (20:45)
[2017-10-11] MEDS: ASPIRIN ENTERIC 325 MG TAB PO ×2 (20:45)
[2017-10-11] MEDS: amLODIPine 5 MG TAB PO ×2 (20:55)
[2017-10-12] MEDS: PIPERACILLIN/TAZOBACTAM SOD 3.375 GM in D5W MINI-BAG PLUS 50 ML IV ×3 (04:26→21:37)
[2017-10-12] MEDS: LEVOTHYROXINE 50MCG TABLET (0.05MG) PO ×2 (05:26)
[2017-10-12] MEDS: HEPARIN SOD (PORCINE) 5000 UNITS/ML VIAL SC ×6 (05:29→21:37)
[2017-10-12 07:01] LABS: HEMATOCRIT 31.1 % (36.0-47.0); HEMOGLOBIN 10.3 g/dl (12.0-15.5); MEAN CORPUSCULAR HEMOGLOBIN 30.1 pg (27.0-33.0); MEAN CORPUSCULAR HGB CONC 33.1 g/dl (32.0-36.5); MEAN CORPUSCULAR VOLUME 90.9 fl (80.0-96.0); PLATELET COUNT, AUTOMATED 400 10^3/uL (150-450); RED BLOOD COUNT 3.42 10^6/uL (4.00-5.40); WHITE BLOOD COUNT 19.8 10^3/uL (4.0-10.0)
[2017-10-12 07:09] LABS: ANION GAP 12 MEQ/L (8-16); BLOOD UREA NITROGEN 24 MG/DL (7-18); CARBON DIOXIDE LEVEL 26 MEQ/L (21-32); CHLORIDE LEVEL 101 MEQ/L (98-107); CREATININE FOR GFR 1.42 MG/DL (0.55-1.30); GLOMERULAR FILTRATION RATE 39.3 (>45); GLUCOSE, FASTING 66 MG/DL (70-100); POTASSIUM SERUM 3.5 MEQ/L (3.5-5.1); SODIUM LEVEL 139 MEQ/L (136-145)
[2017-10-12] MEDS: HumaLOG INSULIN (NovoLOG) PER UNIT SC ×8 (07:30→21:00)
[2017-10-12] MEDS: DIAPER RELIEF PASTE (DESITIN) 60GM TOP ×2 (09:00)
[2017-10-12] MEDS: DOCUSATE SODIUM 100 MG CAP PO ×4 (09:00→21:37)
[2017-10-12 12:14] LABS: BEDSIDE GLUCOSE 214 MG/DL (80-115)
[2017-10-12] MEDS: FERROUS GLUCONATE 324 MG TAB PO ×2 (12:39)
[2017-10-12] MEDS: FUROSEMIDE 40 MG TAB PO ×2 (12:39)
[2017-10-12] MEDS: PENTOXIFYLLINE 400 MG TAB PO ×6 (12:39→21:38)
[2017-10-12] MEDS: VITAMIN D 1,000 INTERNATIONAL UNITS TABLET PO ×2 (12:40)
[2017-10-12] MEDS: LEVEMIR (INSULIN DETEMIR) 1 UNITS/0.01ML SC ×2 (12:40)
[2017-10-12] MEDS: POTASSIUM CHLORIDE 10 MEQ SR TABLET PO ×2 (12:40)
[2017-10-12] MEDS: VANCOMYCIN HCL 1,000 MG, VIAL MATE ADAPTER 1 EACH in D5W 250 ML IV ×2 (12:41)
[2017-10-12 17:00] LABS: BEDSIDE GLUCOSE 132 MG/DL (80-115)
[2017-10-12 21:03] LABS: BEDSIDE GLUCOSE 120 MG/DL (80-115)
[2017-10-12] MEDS: ASPIRIN ENTERIC 325 MG TAB PO ×2 (21:37)
[2017-10-12] MEDS: ROSUVASTATIN 10 MG TAB (CRESTOR) PO ×2 (21:37)
[2017-10-12] MEDS: amLODIPine 5 MG TAB PO ×2 (21:38)
[2017-10-12] MEDS: ACETAMINOPHEN TAB 650MG DOSE (2X325MG) PO ×2 (21:47)
[2017-10-13] MEDS: ACETAMINOPHEN TAB 650MG DOSE (2X325MG) PO ×6 (01:45→18:19)
[2017-10-13] MEDS: HEPARIN SOD (PORCINE) 5000 UNITS/ML VIAL SC ×6 (05:07→20:35)
[2017-10-13] MEDS: LEVOTHYROXINE 50MCG TABLET (0.05MG) PO ×2 (05:07)
[2017-10-13] MEDS: PIPERACILLIN/TAZOBACTAM SOD 3.375 GM in D5W MINI-BAG PLUS 50 ML IV ×3 (05:07→20:34)
[2017-10-13 05:48] LABS: HEMATOCRIT 28.6 % (36.0-47.0); HEMOGLOBIN 9.3 g/dl (12.0-15.5); MEAN CORPUSCULAR HEMOGLOBIN 29.7 pg (27.0-33.0); MEAN CORPUSCULAR HGB CONC 32.5 g/dl (32.0-36.5); MEAN CORPUSCULAR VOLUME 91.4 fl (80.0-96.0); PLATELET COUNT, AUTOMATED 358 10^3/uL (150-450); RED BLOOD COUNT 3.13 10^6/uL (4.00-5.40); RED CELL DISTRIBUTION WIDTH 13.1 % (11.5-14.5); WHITE BLOOD COUNT 17.5 10^3/uL (4.0-10.0)
[2017-10-13 06:03] LABS: ANION GAP 7 MEQ/L (8-16); BLOOD UREA NITROGEN 21 MG/DL (7-18); CALCIUM LEVEL 8.7 MG/DL (8.8-10.2); CARBON DIOXIDE LEVEL 28 MEQ/L (21-32); CHLORIDE LEVEL 104 MEQ/L (98-107); CREATININE FOR GFR 1.36 MG/DL (0.55-1.30); GLOMERULAR FILTRATION RATE 41.3 (>45); GLUCOSE, FASTING 70 MG/DL (70-100); POTASSIUM SERUM 3.5 MEQ/L (3.5-5.1); SODIUM LEVEL 139 MEQ/L (136-145)
[2017-10-13 06:06] LABS: VANCOMYCIN LEVEL TROUGH 17.6 UG/ML (10.0-20.0)
[2017-10-13] MEDS: VANCOMYCIN HCL 1,000 MG, VIAL MATE ADAPTER 1 EACH in D5W 250 ML IV ×4 (06:13→23:22)
[2017-10-13] MEDS: HumaLOG INSULIN (NovoLOG) PER UNIT SC ×8 (07:30→20:23)
[2017-10-13] MEDS: VITAMIN D 1,000 INTERNATIONAL UNITS TABLET PO ×2 (09:15)
[2017-10-13] MEDS: PENTOXIFYLLINE 400 MG TAB PO ×6 (09:15→20:35)
[2017-10-13] MEDS: FUROSEMIDE 40 MG TAB PO ×2 (09:15)
[2017-10-13] MEDS: DOCUSATE SODIUM 100 MG CAP PO ×4 (09:15→20:35)
[2017-10-13] MEDS: POTASSIUM CHLORIDE 10 MEQ SR TABLET PO ×2 (09:15)
[2017-10-13] MEDS: FERROUS GLUCONATE 324 MG TAB PO ×2 (09:15)
[2017-10-13] MEDS: LEVEMIR (INSULIN DETEMIR) 1 UNITS/0.01ML SC ×2 (09:16)
[2017-10-13] MEDS: DIAPER RELIEF PASTE (DESITIN) 60GM TOP ×2 (09:16)
[2017-10-13 12:10] LABS: BEDSIDE GLUCOSE 121 MG/DL (80-115)
[2017-10-13 17:13] LABS: BEDSIDE GLUCOSE 122 MG/DL (80-115)
[2017-10-13 20:03] LABS: BEDSIDE GLUCOSE 132 MG/DL (80-115)
[2017-10-13] MEDS: ROSUVASTATIN 10 MG TAB (CRESTOR) PO ×2 (20:35)
[2017-10-13] MEDS: amLODIPine 5 MG TAB PO ×2 (20:35)
[2017-10-13] MEDS: ASPIRIN ENTERIC 325 MG TAB PO ×2 (20:35)
[2017-10-13] MEDS: ONDANSETRON 4MG/2ML VIAL (J2405) IV ×2 (23:22)
[2017-10-14] MEDS: HEPARIN SOD (PORCINE) 5000 UNITS/ML VIAL SC ×6 (05:20→20:53)
[2017-10-14] MEDS: LEVOTHYROXINE 50MCG TABLET (0.05MG) PO ×2 (05:20)
[2017-10-14] MEDS: PIPERACILLIN/TAZOBACTAM SOD 3.375 GM in D5W MINI-BAG PLUS 50 ML IV ×3 (05:20→20:53)
[2017-10-14 06:45] LABS: HEMATOCRIT 28.1 % (36.0-47.0); HEMOGLOBIN 9.1 g/dl (12.0-15.5); MEAN CORPUSCULAR HEMOGLOBIN 29.3 pg (27.0-33.0); MEAN CORPUSCULAR HGB CONC 32.4 g/dl (32.0-36.5); MEAN CORPUSCULAR VOLUME 90.4 fl (80.0-96.0); PLATELET COUNT, AUTOMATED 373 10^3/uL (150-450); RED BLOOD COUNT 3.11 10^6/uL (4.00-5.40); RED CELL DISTRIBUTION WIDTH 13.2 % (11.5-14.5); WHITE BLOOD COUNT 17.8 10^3/uL (4.0-10.0)
[2017-10-14 06:57] LABS: ANION GAP 10 MEQ/L (8-16); BLOOD UREA NITROGEN 20 MG/DL (7-18); CALCIUM LEVEL 8.6 MG/DL (8.8-10.2); CARBON DIOXIDE LEVEL 27 MEQ/L (21-32); CHLORIDE LEVEL 103 MEQ/L (98-107); CREATININE FOR GFR 1.46 MG/DL (0.55-1.30); GLUCOSE, FASTING 64 MG/DL (70-100); POTASSIUM SERUM 3.9 MEQ/L (3.5-5.1); SODIUM LEVEL 140 MEQ/L (136-145)
[2017-10-14] MEDS: HumaLOG INSULIN (NovoLOG) PER UNIT SC ×8 (07:05→21:00)
[2017-10-14] MEDS: DIAPER RELIEF PASTE (DESITIN) 60GM TOP ×2 (09:00)
[2017-10-14] MEDS: LEVEMIR (INSULIN DETEMIR) 1 UNITS/0.01ML SC ×2 (09:00)
[2017-10-14] MEDS: VITAMIN D 1,000 INTERNATIONAL UNITS TABLET PO ×2 (09:00)
[2017-10-14] MEDS: FERROUS GLUCONATE 324 MG TAB PO ×2 (09:00)
[2017-10-14] MEDS: DOCUSATE SODIUM 100 MG CAP PO ×4 (09:00→20:54)
[2017-10-14] MEDS: POTASSIUM CHLORIDE 10 MEQ SR TABLET PO ×2 (11:46)
[2017-10-14] MEDS: FUROSEMIDE 40 MG TAB PO ×2 (11:46)
[2017-10-14] MEDS: PENTOXIFYLLINE 400 MG TAB PO ×6 (11:46→20:53)
[2017-10-14] MEDS: PERCOCET 5MG/325MG TAB PO ×4 (11:46→18:30)
[2017-10-14] MEDS: ONDANSETRON 4MG/2ML VIAL (J2405) IV ×2 (11:47)
[2017-10-14 12:16] LABS: BEDSIDE GLUCOSE 77 MG/DL (80-115)
[2017-10-14] MEDS ORDERED: KETOROLAC 60 MG/2 ML VIAL (J1885) As Ordered ×2 (15:49)
[2017-10-14] MEDS ORDERED: dexameTHASONE 4 MG/ML 1ML VIAL (J1100) As Ordered ×2 (15:49)
[2017-10-14] MEDS ORDERED: ONDANSETRON 4MG/2ML VIAL (J2405) As Ordered ×2 (15:49)
[2017-10-14] MEDS ORDERED: PROPOFOL 200 MG/20 ML VIAL As Ordered ×2 (15:49)
[2017-10-14] MEDS ORDERED: LIDOCAINE 2% INJ 100 MG/5 ML SDV (FOR ANES.) As Ordered ×2 (15:49)
[2017-10-14] MEDS ORDERED: ROCURONIUM BROMIDE 50 MG/5 ML VIAL As Ordered ×2 (15:49)
[2017-10-14] MEDS ORDERED: MIDAZOLAM INJ 2 MG/2 ML VIAL (J2250) As Ordered ×2 (15:50)
[2017-10-14] MEDS ORDERED: fentaNYL 100 MCG/2 ML INJECTION (J3010) As Ordered ×2 (15:50)
[2017-10-14 17:41] LABS: BEDSIDE GLUCOSE 90 MG/DL (80-115)
[2017-10-14] MEDS ORDERED: ONDANSETRON 4MG/2ML VIAL (J2405) IV ×2 (18:00)
[2017-10-14] MEDS ORDERED: MORPHINE 10 MG/ML 1ML VIAL (J2270) IV ×2 (18:00)
[2017-10-14] MEDS: LR 1,000 ML IV ×2 (18:00)
[2017-10-14] MEDS ORDERED: fentaNYL 100 MCG/2 ML INJECTION (J3010) IV ×2 (18:00)
[2017-10-14] MEDS ORDERED: PERCOCET 5MG/325MG TAB As Ordered ×2 (18:29)
[2017-10-14 19:17] LABS: BEDSIDE GLUCOSE 92 MG/DL (80-115)
[2017-10-14 19:44] LABS: BEDSIDE GLUCOSE 107 MG/DL (80-115)
[2017-10-14] MEDS: VANCOMYCIN HCL 1,000 MG, VIAL MATE ADAPTER 1 EACH in D5W 250 ML IV ×2 (20:52)
[2017-10-14] MEDS: ASPIRIN ENTERIC 325 MG TAB PO ×2 (20:53)
[2017-10-14] MEDS: amLODIPine 5 MG TAB PO ×2 (20:54)
[2017-10-14] MEDS: ROSUVASTATIN 10 MG TAB (CRESTOR) PO ×2 (20:54)
[2017-10-15] MEDS: PERCOCET 5MG/325MG TAB PO ×2 (00:42)
[2017-10-15] MEDS: LEVOTHYROXINE 50MCG TABLET (0.05MG) PO ×2 (05:22)
[2017-10-15] MEDS: HEPARIN SOD (PORCINE) 5000 UNITS/ML VIAL SC ×6 (05:23→21:30)
[2017-10-15] MEDS: PIPERACILLIN/TAZOBACTAM SOD 3.375 GM in D5W MINI-BAG PLUS 50 ML IV (05:23)
[2017-10-15 06:43] LABS: HEMATOCRIT 29.2 % (36.0-47.0); HEMOGLOBIN 9.6 g/dl (12.0-15.5); MEAN CORPUSCULAR HEMOGLOBIN 30.6 pg (27.0-33.0); MEAN CORPUSCULAR HGB CONC 32.9 g/dl (32.0-36.5); PLATELET COUNT, AUTOMATED 396 10^3/uL (150-450); RED BLOOD COUNT 3.14 10^6/uL (4.00-5.40); RED CELL DISTRIBUTION WIDTH 13.4 % (11.5-14.5); WHITE BLOOD COUNT 19.4 10^3/uL (4.0-10.0)
[2017-10-15 07:04] LABS: ANION GAP 16 MEQ/L (8-16); BLOOD UREA NITROGEN 35 MG/DL (7-18); CALCIUM LEVEL 8.8 MG/DL (8.8-10.2); CARBON DIOXIDE LEVEL 21 MEQ/L (21-32); CHLORIDE LEVEL 100 MEQ/L (98-107); GLUCOSE, FASTING 306 MG/DL (70-100); SODIUM LEVEL 137 MEQ/L (136-145)
[2017-10-15 07:05] LABS: POTASSIUM SERUM 5.3 MEQ/L (3.5-5.1)
[2017-10-15] MEDS: HumaLOG INSULIN (NovoLOG) PER UNIT SC ×8 (08:33→21:31)
[2017-10-15] MEDS: LEVEMIR (INSULIN DETEMIR) 1 UNITS/0.01ML SC ×2 (08:34)
[2017-10-15] MEDS: FERROUS GLUCONATE 324 MG TAB PO ×2 (08:34)
[2017-10-15] MEDS: VITAMIN D 1,000 INTERNATIONAL UNITS TABLET PO ×2 (08:34)
[2017-10-15] MEDS: PENTOXIFYLLINE 400 MG TAB PO ×6 (08:35→21:28)
[2017-10-15] MEDS: FUROSEMIDE 40 MG TAB PO ×2 (08:36)
[2017-10-15] MEDS: POTASSIUM CHLORIDE 10 MEQ SR TABLET PO ×2 (08:36)
[2017-10-15] MEDS: DIAPER RELIEF PASTE (DESITIN) 60GM TOP ×2 (09:00)
[2017-10-15] MEDS: DOCUSATE SODIUM 100 MG CAP PO ×4 (09:00→21:30)
[2017-10-15] MEDS: SOD POLYSTYRENE SULFONATE SUSP 15 GM/60 ML UD PO ×2 (10:32)
[2017-10-15] MEDS: NS 1,000 ML IV ×2 (10:33)
[2017-10-15 11:36] LABS: BEDSIDE GLUCOSE 342 MG/DL (80-115)
[2017-10-15 14:58] LABS: POTASSIUM SERUM 4.4 MEQ/L (3.5-5.1)
[2017-10-15 16:57] LABS: BEDSIDE GLUCOSE 342 MG/DL (80-115)
[2017-10-15 20:17] LABS: BEDSIDE GLUCOSE 354 MG/DL (80-115)
[2017-10-15] MEDS: ROSUVASTATIN 10 MG TAB (CRESTOR) PO ×2 (21:28)
[2017-10-15] MEDS: ASPIRIN ENTERIC 325 MG TAB PO ×2 (21:29)
[2017-10-15] MEDS: amLODIPine 5 MG TAB PO ×2 (21:29)
[2017-10-16] MEDS: PERCOCET 5MG/325MG TAB PO ×10 (00:44→23:33)
[2017-10-16] MEDS: NS 1,000 ML IV ×6 (02:18→22:10)
[2017-10-16] MEDS: LEVOTHYROXINE 50MCG TABLET (0.05MG) PO ×2 (05:44)
[2017-10-16] MEDS: HEPARIN SOD (PORCINE) 5000 UNITS/ML VIAL SC ×6 (05:44→21:08)
[2017-10-16 06:55] LABS: HEMATOCRIT 23.6 % (36.0-47.0); HEMOGLOBIN 7.8 g/dl (12.0-15.5); MEAN CORPUSCULAR HEMOGLOBIN 29.9 pg (27.0-33.0); MEAN CORPUSCULAR HGB CONC 33.1 g/dl (32.0-36.5); MEAN CORPUSCULAR VOLUME 90.4 fl (80.0-96.0); PLATELET COUNT, AUTOMATED 344 10^3/uL (150-450); RED BLOOD COUNT 2.61 10^6/uL (4.00-5.40); RED CELL DISTRIBUTION WIDTH 13.2 % (11.5-14.5); WHITE BLOOD COUNT 17.5 10^3/uL (4.0-10.0)
[2017-10-16] MEDS: amLODIPine 10 MG TAB PO ×2 (07:10)
[2017-10-16 07:15] LABS: ANION GAP 11 MEQ/L (8-16); BLOOD UREA NITROGEN 42 MG/DL (7-18); CARBON DIOXIDE LEVEL 27 MEQ/L (21-32); CHLORIDE LEVEL 99 MEQ/L (98-107); CREATININE FOR GFR 2.05 MG/DL (0.55-1.30); GLOMERULAR FILTRATION RATE 25.7 (>45); GLUCOSE, FASTING 210 MG/DL (70-100); POTASSIUM SERUM 4.2 MEQ/L (3.5-5.1); SODIUM LEVEL 137 MEQ/L (136-145); VANCOMYCIN RANDOM 19.2 UG/ML
[2017-10-16] MEDS: HumaLOG INSULIN (NovoLOG) PER UNIT SC ×8 (08:51→21:07)
[2017-10-16] MEDS: VANCOMYCIN HCL 1,000 MG, VIAL MATE ADAPTER 1 EACH in D5W 250 ML IV ×2 (08:51)
[2017-10-16] MEDS: LEVEMIR (INSULIN DETEMIR) 1 UNITS/0.01ML SC ×2 (08:51)
[2017-10-16] MEDS: PENTOXIFYLLINE 400 MG TAB PO ×6 (08:52→21:03)
[2017-10-16] MEDS: DOCUSATE SODIUM 100 MG CAP PO ×4 (08:52→21:05)
[2017-10-16] MEDS: VITAMIN D 1,000 INTERNATIONAL UNITS TABLET PO ×2 (08:55)
[2017-10-16] MEDS: FERROUS GLUCONATE 324 MG TAB PO ×2 (08:55)
[2017-10-16] MEDS: DIAPER RELIEF PASTE (DESITIN) 60GM TOP ×2 (09:00)
[2017-10-16 11:24] LABS: BEDSIDE GLUCOSE 331 MG/DL (80-115)
[2017-10-16 15:59] LABS: IMMEDIATE SPIN CROSSMATCH 1 2
[2017-10-16 16:34] LABS: BEDSIDE GLUCOSE 174 MG/DL (80-115)
[2017-10-16] MEDS: cefTRIAXone SOD 1 GM in D5W MINI-BAG PLUS 50 ML IV (18:24)
[2017-10-16 19:35] LABS: IMMEDIATE SPIN CROSSMATCH 1 2
[2017-10-16 20:19] LABS: BEDSIDE GLUCOSE 254 MG/DL (80-115)
[2017-10-16] MEDS: ROSUVASTATIN 10 MG TAB (CRESTOR) PO ×2 (21:03)
[2017-10-16] MEDS: ASPIRIN ENTERIC 325 MG TAB PO ×2 (21:03)
[2017-10-17] MEDS: HEPARIN SOD (PORCINE) 5000 UNITS/ML VIAL SC ×6 (05:39→22:04)
[2017-10-17] MEDS: LEVOTHYROXINE 50MCG TABLET (0.05MG) PO ×2 (05:39)
[2017-10-17 06:28] LABS: HEMATOCRIT 29.8 % (36.0-47.0); MEAN CORPUSCULAR HEMOGLOBIN 30.5 pg (27.0-33.0); MEAN CORPUSCULAR HGB CONC 33.6 g/dl (32.0-36.5); MEAN CORPUSCULAR VOLUME 90.9 fl (80.0-96.0); PLATELET COUNT, AUTOMATED 314 10^3/uL (150-450); RED BLOOD COUNT 3.28 10^6/uL (4.00-5.40); RED CELL DISTRIBUTION WIDTH 13.5 % (11.5-14.5); WHITE BLOOD COUNT 13.8 10^3/uL (4.0-10.0)
[2017-10-17 06:45] LABS: ANION GAP 7 MEQ/L (8-16); BLOOD UREA NITROGEN 36 MG/DL (7-18); CALCIUM LEVEL 7.9 MG/DL (8.8-10.2); CARBON DIOXIDE LEVEL 27 MEQ/L (21-32); CHLORIDE LEVEL 104 MEQ/L (98-107); CREATININE FOR GFR 1.59 MG/DL (0.55-1.30); GLOMERULAR FILTRATION RATE 34.5 (>45); GLUCOSE, FASTING 137 MG/DL (70-100); POTASSIUM SERUM 4.4 MEQ/L (3.5-5.1); SODIUM LEVEL 138 MEQ/L (136-145); VANCOMYCIN RANDOM 21.6 UG/ML
[2017-10-17] MEDS: DIAPER RELIEF PASTE (DESITIN) 60GM TOP ×2 (09:00)
[2017-10-17] MEDS: FERROUS GLUCONATE 324 MG TAB PO ×2 (09:09)
[2017-10-17] MEDS: amLODIPine 10 MG TAB PO ×2 (09:09)
[2017-10-17] MEDS: VITAMIN D 1,000 INTERNATIONAL UNITS TABLET PO ×2 (09:09)
[2017-10-17] MEDS: PENTOXIFYLLINE 400 MG TAB PO ×6 (09:09→22:03)
[2017-10-17] MEDS: DOCUSATE SODIUM 100 MG CAP PO ×4 (09:09→22:04)
[2017-10-17] MEDS: VANCOMYCIN HCL 1,000 MG, VIAL MATE ADAPTER 1 EACH in D5W 250 ML IV ×2 (09:09)
[2017-10-17] MEDS: HumaLOG INSULIN (NovoLOG) PER UNIT SC ×8 (09:10→21:00)
[2017-10-17] MEDS: LEVEMIR (INSULIN DETEMIR) 1 UNITS/0.01ML SC ×2 (09:11)
[2017-10-17 11:42] LABS: BEDSIDE GLUCOSE 228 MG/DL (80-115)
[2017-10-17 16:52] LABS: BEDSIDE GLUCOSE 124 MG/DL (80-115)
[2017-10-17] MEDS: AMPICILLIN SOD/SULBACTAM SOD 3 GM in D5W MINI-BAG PLUS 100 ML IV (18:31)
[2017-10-17 21:09] LABS: BEDSIDE GLUCOSE 212 MG/DL (80-115)
[2017-10-17] MEDS: ROSUVASTATIN 10 MG TAB (CRESTOR) PO ×2 (22:03)
[2017-10-17] MEDS: ASPIRIN ENTERIC 325 MG TAB PO ×2 (22:03)
[2017-10-18] MEDS: AMPICILLIN SOD/SULBACTAM SOD 3 GM in D5W MINI-BAG PLUS 100 ML IV ×5 (00:31→23:47)
[2017-10-18] MEDS: LEVOTHYROXINE 50MCG TABLET (0.05MG) PO ×2 (05:19)
[2017-10-18] MEDS: HEPARIN SOD (PORCINE) 5000 UNITS/ML VIAL SC ×6 (05:19→20:34)
[2017-10-18 05:55] LABS: BEDSIDE GLUCOSE 140 MG/DL (80-115)
[2017-10-18 07:00] LABS: HEMATOCRIT 27.6 % (36.0-47.0); HEMOGLOBIN 9.3 g/dl (12.0-15.5); MEAN CORPUSCULAR HEMOGLOBIN 30.1 pg (27.0-33.0); MEAN CORPUSCULAR HGB CONC 33.7 g/dl (32.0-36.5); MEAN CORPUSCULAR VOLUME 89.3 fl (80.0-96.0); PLATELET COUNT, AUTOMATED 313 10^3/uL (150-450); RED BLOOD COUNT 3.09 10^6/uL (4.00-5.40); RED CELL DISTRIBUTION WIDTH 13.5 % (11.5-14.5); WHITE BLOOD COUNT 11.5 10^3/uL (4.0-10.0)
[2017-10-18 07:23] LABS: ANION GAP 6 MEQ/L (8-16); BLOOD UREA NITROGEN 29 MG/DL (7-18); CALCIUM LEVEL 8.1 MG/DL (8.8-10.2); CARBON DIOXIDE LEVEL 28 MEQ/L (21-32); CHLORIDE LEVEL 108 MEQ/L (98-107); CREATININE FOR GFR 1.27 MG/DL (0.55-1.30); GLOMERULAR FILTRATION RATE 44.7 (>45); GLUCOSE, FASTING 141 MG/DL (70-100); POTASSIUM SERUM 3.9 MEQ/L (3.5-5.1); SODIUM LEVEL 142 MEQ/L (136-145)
[2017-10-18] MEDS: HumaLOG INSULIN (NovoLOG) PER UNIT SC ×8 (08:09→20:20)
[2017-10-18] MEDS: PENTOXIFYLLINE 400 MG TAB PO ×6 (08:10→20:35)
[2017-10-18] MEDS: DOCUSATE SODIUM 100 MG CAP PO ×4 (08:10→20:34)
[2017-10-18] MEDS: FERROUS GLUCONATE 324 MG TAB PO ×2 (08:10)
[2017-10-18] MEDS: VITAMIN D 1,000 INTERNATIONAL UNITS TABLET PO ×2 (08:10)
[2017-10-18] MEDS: LEVEMIR (INSULIN DETEMIR) 1 UNITS/0.01ML SC ×2 (08:10)
[2017-10-18] MEDS: DIAPER RELIEF PASTE (DESITIN) 60GM TOP ×2 (08:11)
[2017-10-18] MEDS: amLODIPine 10 MG TAB PO ×2 (08:11)
[2017-10-18 11:56] LABS: BEDSIDE GLUCOSE 223 MG/DL (80-115)
[2017-10-18 16:46] LABS: BEDSIDE GLUCOSE 221 MG/DL (80-115)
[2017-10-18 19:34] LABS: BEDSIDE GLUCOSE 242 MG/DL (80-115)
[2017-10-18] MEDS: ASPIRIN ENTERIC 325 MG TAB PO ×2 (20:34)
[2017-10-18] MEDS: ROSUVASTATIN 10 MG TAB (CRESTOR) PO ×2 (20:35)
[2017-10-19] MEDS: AMPICILLIN SOD/SULBACTAM SOD 3 GM in D5W MINI-BAG PLUS 100 ML IV ×2 (05:33→12:00)
[2017-10-19] MEDS: LEVOTHYROXINE 50MCG TABLET (0.05MG) PO ×2 (05:33)
[2017-10-19] MEDS: HEPARIN SOD (PORCINE) 5000 UNITS/ML VIAL SC ×2 (05:33)
[2017-10-19 07:07] LABS: HEMATOCRIT 30.4 % (36.0-47.0); HEMOGLOBIN 9.9 g/dl (12.0-15.5); MEAN CORPUSCULAR HGB CONC 32.6 g/dl (32.0-36.5); MEAN CORPUSCULAR VOLUME 92.1 fl (80.0-96.0); PLATELET COUNT, AUTOMATED 346 10^3/uL (150-450); RED CELL DISTRIBUTION WIDTH 13.4 % (11.5-14.5)
[2017-10-19 07:24] LABS: ANION GAP 8 MEQ/L (8-16); BLOOD UREA NITROGEN 28 MG/DL (7-18); C REACTIVE PROTEIN QUANTITATIV 1.93 MG/DL (0.00-0.30); CALCIUM LEVEL 8.4 MG/DL (8.8-10.2); CARBON DIOXIDE LEVEL 26 MEQ/L (21-32); CHLORIDE LEVEL 108 MEQ/L (98-107); CREATININE FOR GFR 1.24 MG/DL (0.55-1.30); GLOMERULAR FILTRATION RATE 45.9 (>45); GLUCOSE, FASTING 168 MG/DL (70-100); POTASSIUM SERUM 4.1 MEQ/L (3.5-5.1); SODIUM LEVEL 142 MEQ/L (136-145)
[2017-10-19] MEDS: HumaLOG INSULIN (NovoLOG) PER UNIT SC ×4 (08:55→12:04)
[2017-10-19] MEDS: VITAMIN D 1,000 INTERNATIONAL UNITS TABLET PO ×2 (08:56)
[2017-10-19] MEDS: LEVEMIR (INSULIN DETEMIR) 1 UNITS/0.01ML SC ×2 (08:56)
[2017-10-19] MEDS: DOCUSATE SODIUM 100 MG CAP PO ×2 (08:56)
[2017-10-19] MEDS: PENTOXIFYLLINE 400 MG TAB PO ×2 (08:56)
[2017-10-19] MEDS: amLODIPine 10 MG TAB PO ×2 (08:56)
[2017-10-19] MEDS: FERROUS GLUCONATE 324 MG TAB PO ×2 (08:56)
[2017-10-19] MEDS: DIAPER RELIEF PASTE (DESITIN) 60GM TOP ×2 (08:57)
[2017-10-19 11:55] LABS: BEDSIDE GLUCOSE 233 MG/DL (80-115)
== END 2017-10-19 13:40 | DRG 475 ==
LOC: M ED 09:38 → M ED INP 11:50 → M MS5PR 18:40
PROC: 30233N1 Transfusion of Nonautologous Red Blood Cells into Peripheral Vein, Percutaneous Approach (ICD-10-PCS; principal; 2017-10-14 15:00)
PROC: 0Y6C0Z2 Detachment at Right Upper Leg, Mid, Open Approach (ICD-10-PCS; 2017-10-14 16:11)
PROC: 06CM0ZZ Extirpation of Matter from Right Femoral Vein, Open Approach (ICD-10-PCS; 2017-10-14 16:11)
DX: T87.43 Infection of amputation stump, right lower extremity (principal); Z68.42 Body mass index [BMI] 45.0-49.9, adult; M86.171 Other acute osteomyelitis, right ankle and foot; L02.611 Cutaneous abscess of right foot; L03.115 Cellulitis of right lower limb; D62 Acute posthemorrhagic anemia; E11.52 Type 2 diabetes mellitus with diabetic peripheral angiopathy with gangrene; N17.9 Acute kidney failure, unspecified; I82.411 Acute embolism and thrombosis of right femoral vein; I70.261 Atherosclerosis of native arteries of extremities with gangrene, right leg; E11.69 Type 2 diabetes mellitus with other specified complication; E66.01 Morbid (severe) obesity due to excess calories; E78.5 Hyperlipidemia, unspecified; I12.9 Hypertensive chronic kidney disease with stage 1 through stage 4 chronic kidney disease, or unspecified chronic kidney disease; E03.9 Hypothyroidism, unspecified; E11.22 Type 2 diabetes mellitus with diabetic chronic kidney disease; D50.9 Iron deficiency anemia, unspecified; E11.319 Type 2 diabetes mellitus with unspecified diabetic retinopathy without macular edema; L94.2 Calcinosis cutis; D72.829 Elevated white blood cell count, unspecified; E87.5 Hyperkalemia; E11.40 Type 2 diabetes mellitus with diabetic neuropathy, unspecified; I70.0 Atherosclerosis of aorta; E55.9 Vitamin D deficiency, unspecified; B95.2 Enterococcus as the cause of diseases classified elsewhere; B96.20 Unspecified Escherichia coli [E. coli] as the cause of diseases classified elsewhere; N18.3 Chronic kidney disease, stage 3 (moderate); Z98.49 Cataract extraction status, unspecified eye; Z95.820 Peripheral vascular angioplasty status with implants and grafts; Z89.421 Acquired absence of other right toe(s); Z79.82 Long term (current) use of aspirin; Z79.4 Long term (current) use of insulin; Z79.899 Other long term (current) drug therapy; Z88.8 Allergy status to other drugs, medicaments and biological substances

== ENCOUNTER 2017-10-19 13:50 | Inpatient (IN) | payer MEDICARE, BC ==
[~2017-10-19 13:50] MED LIST changes: +BISACODYL 10 MG SUPP PR; +BISACODYL 5 MG TAB PO; +DEXTROSE 50% 50 ML SYRINGE IV; +FLEET ENEMA PR; +GLUCAGON FOR INJ 1 MG VIAL (J1610) SC; +GLUCOSE 4 GM CHEW TABLET PO; -HEPARIN 1,000 UNITS/ML 10ML VIAL (FOR RADIOLOGY& DIALYSIS ONLY) As Ordered; -ISOVUE-300 61% 50ML VIAL (Q9967) As Ordered; +MOM 30ML SUSPENSION UDC PO; +NORCO, ANEXSIA 5/325MG TABLET (HYDROcodone/ACETAMINOPHEN) PO; +ONDANSETRON 4 MG TAB (S0181) PO; +ONDANSETRON 4MG/2ML VIAL (J2405) IM
[2017-10-19] MEDS: HEPARIN SOD (PORCINE) 5000 UNITS/ML VIAL SQ ×2 (14:00→21:50)
[2017-10-19] MEDS ORDERED: PILL CRUSHER/CUTTER 1 EACH XX (14:45)
[2017-10-19 17:01] LABS: BEDSIDE GLUCOSE 223 MG/DL (80-115)
[2017-10-19] MEDS: PENTOXIFYLLINE 400 MG TAB PO (17:42)
[2017-10-19] MEDS: HumaLOG INSULIN (NovoLOG) PER UNIT SC ×2 (17:43→21:00)
[2017-10-19] MEDS ORDERED: AMPICILLIN SOD/SULBACTAM SOD 3 GM in D5W MINI-BAG PLUS 100 ML IV (18:00)
[2017-10-19 20:42] LABS: BEDSIDE GLUCOSE 190 MG/DL (80-115)
[2017-10-19] MEDS: SENNA 8.6 MG TAB (SENOKOT) PO (21:00)
[2017-10-19] MEDS: DOCUSATE SODIUM 100 MG CAP PO (21:47)
[2017-10-19] MEDS: ACETAMINOPHEN TAB 650MG DOSE (2X325MG) PO (21:48)
[2017-10-19] MEDS: ASPIRIN ENTERIC 325 MG TAB PO (21:48)
[2017-10-19] MEDS: ROSUVASTATIN 10 MG TAB (CRESTOR) PO (21:48)
[2017-10-19] MEDS: FAMOTIDINE 20 MG TAB PO (21:48)
[2017-10-20] MEDS: LEVOTHYROXINE 50MCG TABLET (0.05MG) PO (06:10)
[2017-10-20] MEDS: HEPARIN SOD (PORCINE) 5000 UNITS/ML VIAL SQ ×3 (06:10→21:00)
[2017-10-20 06:32] LABS: BEDSIDE GLUCOSE 114 MG/DL (80-115)
[2017-10-20 07:09] LABS: HEMATOCRIT 30.8 % (36.0-47.0); MEAN CORPUSCULAR HEMOGLOBIN 30.3 pg (27.0-33.0); MEAN CORPUSCULAR HGB CONC 32.5 g/dl (32.0-36.5); MEAN CORPUSCULAR VOLUME 93.3 fl (80.0-96.0); PLATELET COUNT, AUTOMATED 338 10^3/uL (150-450); RED CELL DISTRIBUTION WIDTH 13.5 % (11.5-14.5)
[2017-10-20 07:10] LABS: ADD MANUAL DIFFER YES; DIFF SLIDE NUMBER 74; POS COUNT POS FLAG; POSITIVE MORPH POS FLAG
[2017-10-20 07:29] LABS: ALBUMIN/GLOBULIN RATIO 0.54 (1.00-1.93); ALKALINE PHOSPHATASE 66 U/L (45-117); ALT/SGPT 17 U/L (12-78); ANION GAP 9 MEQ/L (8-16); AST/SGOT 16 U/L (7-37); BILIRUBIN,TOTAL 0.2 MG/DL (0.2-1.0); BLOOD UREA NITROGEN 25 MG/DL (7-18); CALCIUM LEVEL 8.4 MG/DL (8.8-10.2); CARBON DIOXIDE LEVEL 25 MEQ/L (21-32); CHLORIDE LEVEL 109 MEQ/L (98-107); CREATININE FOR GFR 1.33 MG/DL (0.55-1.30); GLOMERULAR FILTRATION RATE 42.4 (>45); GLUCOSE, FASTING 114 MG/DL (70-100); POTASSIUM SERUM 4.5 MEQ/L (3.5-5.1); SODIUM LEVEL 143 MEQ/L (136-145); TOTAL PROTEIN 5.7 GM/DL (6.4-8.2)
[2017-10-20 07:46] LABS: ATYPICAL LYMPH 2 % (0-5); BANDS 2 % (< 11); EOSINOPHILS 5 % (0-5); LYMPHOCYTES 22 % (16-52); METAMYELOCYTES 1 % (0-0); MONOCYTES 2 % (0-8); MYELOCYTES 2 % (0-0); NEUTROPHILS 64 % (35-75); PLATELET ESTIMATE NORMAL (NORMAL)
[2017-10-20 07:47] LABS: POLYCHROMASIA 1+
[2017-10-20 07:48] LABS: ANISOCYTOSIS 1+; MICROCYTOSIS 1+
[2017-10-20] MEDS: PENTOXIFYLLINE 400 MG TAB PO ×3 (08:29→17:32)
[2017-10-20] MEDS: HumaLOG INSULIN (NovoLOG) PER UNIT SC ×4 (08:29→21:00)
[2017-10-20] MEDS: amLODIPine 10 MG TAB PO (08:30)
[2017-10-20] MEDS: FAMOTIDINE 20 MG TAB PO ×2 (08:30→21:01)
[2017-10-20] MEDS: FERROUS GLUCONATE 324 MG TAB PO (08:30)
[2017-10-20] MEDS: VITAMIN D 1,000 INTERNATIONAL UNITS TABLET PO (08:30)
[2017-10-20] MEDS: MIRALAX *UNIT DOSE* 17GM PACKET PO (08:31)
[2017-10-20] MEDS: LEVEMIR (INSULIN DETEMIR) 1 UNITS/0.01ML SC (08:31)
[2017-10-20] MEDS: DOCUSATE SODIUM 100 MG CAP PO ×2 (08:31→19:32)
[2017-10-20] MEDS: ACETAMINOPHEN TAB 650MG DOSE (2X325MG) PO ×2 (11:16→21:01)
[2017-10-20 12:04] LABS: BEDSIDE GLUCOSE 173 MG/DL (80-115)
[2017-10-20 17:07] LABS: BEDSIDE GLUCOSE 111 MG/DL (80-115)
[2017-10-20] MEDS: SENNA 8.6 MG TAB (SENOKOT) PO (19:32)
[2017-10-20 20:45] LABS: BEDSIDE GLUCOSE 261 MG/DL (80-115)
[2017-10-20] MEDS: ROSUVASTATIN 10 MG TAB (CRESTOR) PO (21:01)
[2017-10-20] MEDS: ASPIRIN ENTERIC 325 MG TAB PO (21:01)
[2017-10-21] MEDS: HEPARIN SOD (PORCINE) 5000 UNITS/ML VIAL SQ ×3 (06:21→21:12)
[2017-10-21] MEDS: LEVOTHYROXINE 50MCG TABLET (0.05MG) PO (06:21)
[2017-10-21] MEDS: ACETAMINOPHEN TAB 650MG DOSE (2X325MG) PO ×2 (06:22→11:39)
[2017-10-21 07:20] LABS: ANION GAP 9 MEQ/L (8-16); BLOOD UREA NITROGEN 21 MG/DL (7-18); CALCIUM LEVEL 8.3 MG/DL (8.8-10.2); CARBON DIOXIDE LEVEL 23 MEQ/L (21-32); CHLORIDE LEVEL 111 MEQ/L (98-107); CREATININE FOR GFR 1.15 MG/DL (0.55-1.30); GLOMERULAR FILTRATION RATE 50.1 (>45); GLUCOSE, FASTING 101 MG/DL (70-100); POTASSIUM SERUM 4.1 MEQ/L (3.5-5.1); SODIUM LEVEL 143 MEQ/L (136-145)
[2017-10-21] MEDS: MIRALAX *UNIT DOSE* 17GM PACKET PO (09:00)
[2017-10-21] MEDS: DOCUSATE SODIUM 100 MG CAP PO ×2 (09:00→21:11)
[2017-10-21] MEDS: FAMOTIDINE 20 MG TAB PO ×2 (09:28→21:10)
[2017-10-21] MEDS: PENTOXIFYLLINE 400 MG TAB PO ×3 (09:28→17:07)
[2017-10-21] MEDS: amLODIPine 10 MG TAB PO (09:28)
[2017-10-21] MEDS: VITAMIN D 1,000 INTERNATIONAL UNITS TABLET PO (09:28)
[2017-10-21] MEDS: FERROUS GLUCONATE 324 MG TAB PO (09:28)
[2017-10-21] MEDS: LEVEMIR (INSULIN DETEMIR) 1 UNITS/0.01ML SC (09:29)
[2017-10-21] MEDS: HumaLOG INSULIN (NovoLOG) PER UNIT SC ×4 (09:29→21:00)
[2017-10-21 11:24] LABS: BEDSIDE GLUCOSE 216 MG/DL (80-115)
[2017-10-21] MEDS: POTASSIUM CHLORIDE 10 MEQ SR TABLET PO (11:39)
[2017-10-21] MEDS: FUROSEMIDE 40 MG TAB PO (11:39)
[2017-10-21 16:26] LABS: BEDSIDE GLUCOSE 101 MG/DL (80-115)
[2017-10-21 19:41] LABS: BEDSIDE GLUCOSE 203 MG/DL (80-115)
[2017-10-21] MEDS: SENNA 8.6 MG TAB (SENOKOT) PO (21:00)
[2017-10-21] MEDS: ROSUVASTATIN 10 MG TAB (CRESTOR) PO (21:11)
[2017-10-21] MEDS: ASPIRIN ENTERIC 325 MG TAB PO (21:11)
[2017-10-22 05:29] LABS: BEDSIDE GLUCOSE 126 MG/DL (80-115)
[2017-10-22] MEDS: LEVOTHYROXINE 50MCG TABLET (0.05MG) PO (06:00)
[2017-10-22] MEDS: HEPARIN SOD (PORCINE) 5000 UNITS/ML VIAL SQ ×3 (06:01→21:37)
[2017-10-22 07:52] LABS: HEMATOCRIT 32.8 % (36.0-47.0); HEMOGLOBIN 10.6 g/dl (12.0-15.5); MEAN CORPUSCULAR HEMOGLOBIN 30.1 pg (27.0-33.0); MEAN CORPUSCULAR HGB CONC 32.3 g/dl (32.0-36.5); MEAN CORPUSCULAR VOLUME 93.2 fl (80.0-96.0); PLATELET COUNT, AUTOMATED 397 10^3/uL (150-450); RED BLOOD COUNT 3.52 10^6/uL (4.00-5.40); WHITE BLOOD COUNT 11.7 10^3/uL (4.0-10.0)
[2017-10-22] MEDS: FERROUS GLUCONATE 324 MG TAB PO (08:13)
[2017-10-22] MEDS: PENTOXIFYLLINE 400 MG TAB PO ×3 (08:13→17:36)
[2017-10-22] MEDS: HumaLOG INSULIN (NovoLOG) PER UNIT SC ×4 (08:13→21:00)
[2017-10-22] MEDS: VITAMIN D 1,000 INTERNATIONAL UNITS TABLET PO (08:13)
[2017-10-22] MEDS: FAMOTIDINE 20 MG TAB PO ×2 (08:13→21:35)
[2017-10-22] MEDS: FUROSEMIDE 40 MG TAB PO (08:14)
[2017-10-22] MEDS: LEVEMIR (INSULIN DETEMIR) 1 UNITS/0.01ML SC (08:14)
[2017-10-22] MEDS: POTASSIUM CHLORIDE 10 MEQ SR TABLET PO (08:14)
[2017-10-22] MEDS: DOCUSATE SODIUM 100 MG CAP PO ×2 (08:14→21:00)
[2017-10-22] MEDS: amLODIPine 10 MG TAB PO (08:14)
[2017-10-22] MEDS: MIRALAX *UNIT DOSE* 17GM PACKET PO (08:15)
[2017-10-22] MEDS: ACETAMINOPHEN TAB 650MG DOSE (2X325MG) PO (10:39)
[2017-10-22 11:27] LABS: BEDSIDE GLUCOSE 197 MG/DL (80-115)
[2017-10-22 17:03] LABS: BEDSIDE GLUCOSE 140 MG/DL (80-115)
[2017-10-22 20:50] LABS: BEDSIDE GLUCOSE 206 MG/DL (80-115)
[2017-10-22] MEDS: SENNA 8.6 MG TAB (SENOKOT) PO (21:00)
[2017-10-22] MEDS: NORCO, ANEXSIA 5/325MG TABLET (HYDROcodone/ACETAMINOPHEN) PO (21:35)
[2017-10-22] MEDS: ASPIRIN ENTERIC 325 MG TAB PO (21:35)
[2017-10-22] MEDS: ROSUVASTATIN 10 MG TAB (CRESTOR) PO (21:36)
[2017-10-23] MEDS: HEPARIN SOD (PORCINE) 5000 UNITS/ML VIAL SQ ×3 (05:43→21:50)
[2017-10-23] MEDS: LEVOTHYROXINE 50MCG TABLET (0.05MG) PO (05:43)
[2017-10-23 05:54] LABS: BEDSIDE GLUCOSE 96 MG/DL (80-115)
[2017-10-23] MEDS: HumaLOG INSULIN (NovoLOG) PER UNIT SC ×4 (07:30→21:00)
[2017-10-23] MEDS: POTASSIUM CHLORIDE 10 MEQ SR TABLET PO (09:46)
[2017-10-23] MEDS: PENTOXIFYLLINE 400 MG TAB PO ×3 (09:46→17:38)
[2017-10-23] MEDS: VITAMIN D 1,000 INTERNATIONAL UNITS TABLET PO (09:46)
[2017-10-23] MEDS: FERROUS GLUCONATE 324 MG TAB PO (09:46)
[2017-10-23] MEDS: FAMOTIDINE 20 MG TAB PO ×2 (09:46→20:10)
[2017-10-23] MEDS: amLODIPine 10 MG TAB PO (09:46)
[2017-10-23] MEDS: FUROSEMIDE 40 MG TAB PO (09:47)
[2017-10-23] MEDS: DOCUSATE SODIUM 100 MG CAP PO ×2 (09:47→20:07)
[2017-10-23] MEDS: MIRALAX *UNIT DOSE* 17GM PACKET PO (09:47)
[2017-10-23] MEDS: LEVEMIR (INSULIN DETEMIR) 1 UNITS/0.01ML SC (09:48)
[2017-10-23 11:47] LABS: BEDSIDE GLUCOSE 160 MG/DL (80-115)
[2017-10-23 16:59] LABS: BEDSIDE GLUCOSE 110 MG/DL (80-115)
[2017-10-23] MEDS: SENNA 8.6 MG TAB (SENOKOT) PO (20:08)
[2017-10-23] MEDS: ASPIRIN ENTERIC 325 MG TAB PO (20:10)
[2017-10-23] MEDS: ROSUVASTATIN 10 MG TAB (CRESTOR) PO (20:11)
[2017-10-23 20:36] LABS: BEDSIDE GLUCOSE 180 MG/DL (80-115)
[2017-10-23] MEDS: NORCO, ANEXSIA 5/325MG TABLET (HYDROcodone/ACETAMINOPHEN) PO (21:52)
[2017-10-24 06:15] LABS: BEDSIDE GLUCOSE 92 MG/DL (80-115)
[2017-10-24] MEDS: HEPARIN SOD (PORCINE) 5000 UNITS/ML VIAL SQ ×3 (06:51→21:22)
[2017-10-24] MEDS: LEVOTHYROXINE 50MCG TABLET (0.05MG) PO (06:51)
[2017-10-24] MEDS: HumaLOG INSULIN (NovoLOG) PER UNIT SC ×4 (07:30→21:00)
[2017-10-24] MEDS: FUROSEMIDE 40 MG TAB PO (08:47)
[2017-10-24] MEDS: PENTOXIFYLLINE 400 MG TAB PO ×3 (08:47→17:15)
[2017-10-24] MEDS: amLODIPine 10 MG TAB PO (08:47)
[2017-10-24] MEDS: VITAMIN D 1,000 INTERNATIONAL UNITS TABLET PO (08:47)
[2017-10-24] MEDS: FAMOTIDINE 20 MG TAB PO ×2 (08:48→21:21)
[2017-10-24] MEDS: MIRALAX *UNIT DOSE* 17GM PACKET PO (08:48)
[2017-10-24] MEDS: POTASSIUM CHLORIDE 10 MEQ SR TABLET PO (08:48)
[2017-10-24] MEDS: FERROUS GLUCONATE 324 MG TAB PO (08:48)
[2017-10-24] MEDS: DOCUSATE SODIUM 100 MG CAP PO ×2 (08:48→21:00)
[2017-10-24] MEDS: ACETAMINOPHEN TAB 650MG DOSE (2X325MG) PO ×2 (08:49→21:21)
[2017-10-24] MEDS: LEVEMIR (INSULIN DETEMIR) 1 UNITS/0.01ML SC (08:49)
[2017-10-24 11:34] LABS: BEDSIDE GLUCOSE 188 MG/DL (80-115)
[2017-10-24 16:38] LABS: BEDSIDE GLUCOSE 143 MG/DL (80-115)
[2017-10-24] MEDS: SENNA 8.6 MG TAB (SENOKOT) PO (21:00)
[2017-10-24 21:17] LABS: BEDSIDE GLUCOSE 148 MG/DL (80-115)
[2017-10-24] MEDS: ROSUVASTATIN 10 MG TAB (CRESTOR) PO (21:21)
[2017-10-24] MEDS: ASPIRIN ENTERIC 325 MG TAB PO (21:21)
[2017-10-25] MEDS: LEVOTHYROXINE 50MCG TABLET (0.05MG) PO (06:28)
[2017-10-25] MEDS: ACETAMINOPHEN TAB 650MG DOSE (2X325MG) PO ×3 (06:28→14:51)
[2017-10-25] MEDS: HEPARIN SOD (PORCINE) 5000 UNITS/ML VIAL SQ ×3 (06:28→21:10)
[2017-10-25 06:45] LABS: HEMATOCRIT 30.5 % (36.0-47.0); HEMOGLOBIN 9.9 g/dl (12.0-15.5); MEAN CORPUSCULAR HEMOGLOBIN 30.7 pg (27.0-33.0); MEAN CORPUSCULAR HGB CONC 32.5 g/dl (32.0-36.5); MEAN CORPUSCULAR VOLUME 94.4 fl (80.0-96.0); PLATELET COUNT, AUTOMATED 305 10^3/uL (150-450); RED BLOOD COUNT 3.23 10^6/uL (4.00-5.40); RED CELL DISTRIBUTION WIDTH 14.5 % (11.5-14.5); WHITE BLOOD COUNT 8.8 10^3/uL (4.0-10.0)
[2017-10-25 07:06] LABS: ALBUMIN 2.3 GM/DL (3.2-5.2); ALBUMIN/GLOBULIN RATIO 0.61 (1.00-1.93); ALKALINE PHOSPHATASE 51 U/L (45-117); ALT/SGPT 17 U/L (12-78); ANION GAP 9 MEQ/L (8-16); AST/SGOT 17 U/L (7-37); BILIRUBIN,TOTAL 0.3 MG/DL (0.2-1.0); BLOOD UREA NITROGEN 19 MG/DL (7-18); C REACTIVE PROTEIN QUANTITATIV 1.82 MG/DL (0.00-0.30); CALCIUM LEVEL 8.8 MG/DL (8.8-10.2); CARBON DIOXIDE LEVEL 28 MEQ/L (21-32); CHLORIDE LEVEL 106 MEQ/L (98-107); CREATININE FOR GFR 1.27 MG/DL (0.55-1.30); GLOMERULAR FILTRATION RATE 44.7 (>45); GLUCOSE, FASTING 76 MG/DL (70-100); POTASSIUM SERUM 4.4 MEQ/L (3.5-5.1); SODIUM LEVEL 143 MEQ/L (136-145); TOTAL PROTEIN 6.1 GM/DL (6.4-8.2)
[2017-10-25] MEDS: HumaLOG INSULIN (NovoLOG) PER UNIT SC ×4 (07:30→21:00)
[2017-10-25] MEDS: DOCUSATE SODIUM 100 MG CAP PO ×2 (08:38→21:00)
[2017-10-25] MEDS: MIRALAX *UNIT DOSE* 17GM PACKET PO (08:38)
[2017-10-25] MEDS: LEVEMIR (INSULIN DETEMIR) 1 UNITS/0.01ML SC (09:00)
[2017-10-25] MEDS: amLODIPine 10 MG TAB PO (09:10)
[2017-10-25] MEDS: FAMOTIDINE 20 MG TAB PO ×2 (09:10→21:10)
[2017-10-25] MEDS: FUROSEMIDE 40 MG TAB PO (09:10)
[2017-10-25] MEDS: VITAMIN D 1,000 INTERNATIONAL UNITS TABLET PO (09:10)
[2017-10-25] MEDS: POTASSIUM CHLORIDE 10 MEQ SR TABLET PO (09:10)
[2017-10-25] MEDS: PENTOXIFYLLINE 400 MG TAB PO ×3 (09:10→17:31)
[2017-10-25] MEDS: FERROUS GLUCONATE 324 MG TAB PO (09:10)
[2017-10-25 11:38] LABS: BEDSIDE GLUCOSE 139 MG/DL (80-115)
[2017-10-25 16:52] LABS: BEDSIDE GLUCOSE 149 MG/DL (80-115)
[2017-10-25 20:40] LABS: BEDSIDE GLUCOSE 151 MG/DL (80-115)
[2017-10-25] MEDS: SENNA 8.6 MG TAB (SENOKOT) PO (21:00)
[2017-10-25] MEDS: ASPIRIN ENTERIC 325 MG TAB PO (21:10)
[2017-10-25] MEDS: ROSUVASTATIN 10 MG TAB (CRESTOR) PO (21:10)
[2017-10-26 05:31] LABS: BEDSIDE GLUCOSE 111 MG/DL (80-115)
[2017-10-26] MEDS: LEVOTHYROXINE 50MCG TABLET (0.05MG) PO (05:47)
[2017-10-26] MEDS: ACETAMINOPHEN TAB 650MG DOSE (2X325MG) PO (05:47)
[2017-10-26] MEDS: HEPARIN SOD (PORCINE) 5000 UNITS/ML VIAL SQ ×3 (05:47→20:32)
[2017-10-26] MEDS: VITAMIN D 1,000 INTERNATIONAL UNITS TABLET PO (09:07)
[2017-10-26] MEDS: PENTOXIFYLLINE 400 MG TAB PO ×3 (09:07→17:47)
[2017-10-26] MEDS: FERROUS GLUCONATE 324 MG TAB PO (09:07)
[2017-10-26] MEDS: HumaLOG INSULIN (NovoLOG) PER UNIT SC ×4 (09:07→21:00)
[2017-10-26] MEDS: POTASSIUM CHLORIDE 10 MEQ SR TABLET PO (09:08)
[2017-10-26] MEDS: MIRALAX *UNIT DOSE* 17GM PACKET PO (09:08)
[2017-10-26] MEDS: FAMOTIDINE 20 MG TAB PO ×2 (09:08→20:32)
[2017-10-26] MEDS: amLODIPine 10 MG TAB PO (09:08)
[2017-10-26] MEDS: DOCUSATE SODIUM 100 MG CAP PO ×2 (09:08→21:00)
[2017-10-26] MEDS: FUROSEMIDE 40 MG TAB PO (09:08)
[2017-10-26] MEDS: LEVEMIR (INSULIN DETEMIR) 1 UNITS/0.01ML SC (09:09)
[2017-10-26 11:41] LABS: BEDSIDE GLUCOSE 121 MG/DL (80-115)
[2017-10-26 16:45] LABS: BEDSIDE GLUCOSE 124 MG/DL (80-115)
[2017-10-26 20:04] LABS: BEDSIDE GLUCOSE 207 MG/DL (80-115)
[2017-10-26] MEDS: ASPIRIN ENTERIC 325 MG TAB PO (20:31)
[2017-10-26] MEDS: ROSUVASTATIN 10 MG TAB (CRESTOR) PO (20:32)
[2017-10-26] MEDS: SENNA 8.6 MG TAB (SENOKOT) PO (21:00)
[2017-10-27] MEDS: HEPARIN SOD (PORCINE) 5000 UNITS/ML VIAL SQ ×3 (05:31→20:56)
[2017-10-27] MEDS: LEVOTHYROXINE 50MCG TABLET (0.05MG) PO (05:31)
[2017-10-27 05:41] LABS: BEDSIDE GLUCOSE 90 MG/DL (80-115)
[2017-10-27] MEDS: HumaLOG INSULIN (NovoLOG) PER UNIT SC ×4 (08:03→21:00)
[2017-10-27] MEDS: LEVEMIR (INSULIN DETEMIR) 1 UNITS/0.01ML SC (08:04)
[2017-10-27] MEDS: FERROUS GLUCONATE 324 MG TAB PO (08:04)
[2017-10-27] MEDS: DOCUSATE SODIUM 100 MG CAP PO ×2 (08:04→20:57)
[2017-10-27] MEDS: amLODIPine 10 MG TAB PO (08:04)
[2017-10-27] MEDS: PENTOXIFYLLINE 400 MG TAB PO ×3 (08:05→17:39)
[2017-10-27] MEDS: ACETAMINOPHEN TAB 650MG DOSE (2X325MG) PO ×2 (08:05→20:55)
[2017-10-27] MEDS: POTASSIUM CHLORIDE 10 MEQ SR TABLET PO (08:05)
[2017-10-27] MEDS: FAMOTIDINE 20 MG TAB PO ×2 (08:06→20:55)
[2017-10-27] MEDS: VITAMIN D 1,000 INTERNATIONAL UNITS TABLET PO (08:06)
[2017-10-27] MEDS: FUROSEMIDE 40 MG TAB PO (08:06)
[2017-10-27] MEDS: MIRALAX *UNIT DOSE* 17GM PACKET PO (08:06)
[2017-10-27 11:23] LABS: BEDSIDE GLUCOSE 154 MG/DL (80-115)
[2017-10-27 16:37] LABS: BEDSIDE GLUCOSE 77 MG/DL (80-115)
[2017-10-27 19:55] LABS: BEDSIDE GLUCOSE 211 MG/DL (80-115)
[2017-10-27] MEDS: ROSUVASTATIN 10 MG TAB (CRESTOR) PO (20:55)
[2017-10-27] MEDS: ASPIRIN ENTERIC 325 MG TAB PO (20:55)
[2017-10-27] MEDS: SENNA 8.6 MG TAB (SENOKOT) PO (20:56)
[2017-10-28] MEDS: LEVOTHYROXINE 50MCG TABLET (0.05MG) PO (06:33)
[2017-10-28] MEDS: HEPARIN SOD (PORCINE) 5000 UNITS/ML VIAL SQ ×3 (06:33→21:08)
[2017-10-28 06:38] LABS: HEMATOCRIT 30.5 % (36.0-47.0); HEMOGLOBIN 9.9 g/dl (12.0-15.5); MEAN CORPUSCULAR HEMOGLOBIN 30.9 pg (27.0-33.0); MEAN CORPUSCULAR HGB CONC 32.5 g/dl (32.0-36.5); MEAN CORPUSCULAR VOLUME 95.3 fl (80.0-96.0); PLATELET COUNT, AUTOMATED 258 10^3/uL (150-450); WHITE BLOOD COUNT 7.7 10^3/uL (4.0-10.0)
[2017-10-28 06:39] LABS: BEDSIDE GLUCOSE 84 MG/DL (80-115)
[2017-10-28 07:01] LABS: ANION GAP 10 MEQ/L (8-16); BLOOD UREA NITROGEN 20 MG/DL (7-18); CALCIUM LEVEL 8.6 MG/DL (8.8-10.2); CARBON DIOXIDE LEVEL 28 MEQ/L (21-32); CHLORIDE LEVEL 107 MEQ/L (98-107); CREATININE FOR GFR 1.27 MG/DL (0.55-1.30); GLOMERULAR FILTRATION RATE 44.7 (>45); GLUCOSE, FASTING 84 MG/DL (70-100); POTASSIUM SERUM 3.8 MEQ/L (3.5-5.1); SODIUM LEVEL 145 MEQ/L (136-145)
[2017-10-28] MEDS: HumaLOG INSULIN (NovoLOG) PER UNIT SC ×4 (07:30→21:00)
[2017-10-28] MEDS: amLODIPine 10 MG TAB PO (08:18)
[2017-10-28] MEDS: FUROSEMIDE 40 MG TAB PO (08:18)
[2017-10-28] MEDS: FERROUS GLUCONATE 324 MG TAB PO (08:18)
[2017-10-28] MEDS: FAMOTIDINE 20 MG TAB PO ×2 (08:18→21:07)
[2017-10-28] MEDS: PENTOXIFYLLINE 400 MG TAB PO ×3 (08:18→17:15)
[2017-10-28] MEDS: POTASSIUM CHLORIDE 10 MEQ SR TABLET PO (08:19)
[2017-10-28] MEDS: VITAMIN D 1,000 INTERNATIONAL UNITS TABLET PO (08:19)
[2017-10-28] MEDS: LEVEMIR (INSULIN DETEMIR) 1 UNITS/0.01ML SC (08:19)
[2017-10-28] MEDS: DOCUSATE SODIUM 100 MG CAP PO ×2 (08:33→21:00)
[2017-10-28] MEDS: MIRALAX *UNIT DOSE* 17GM PACKET PO (08:33)
[2017-10-28 11:28] LABS: BEDSIDE GLUCOSE 133 MG/DL (80-115)
[2017-10-28] MEDS: ACETAMINOPHEN TAB 650MG DOSE (2X325MG) PO (11:44)
[2017-10-28] MEDS: EUCERIN 120GM CREAM TOP (14:27)
[2017-10-28 16:34] LABS: BEDSIDE GLUCOSE 115 MG/DL (80-115)
[2017-10-28 21:00] LABS: BEDSIDE GLUCOSE 184 MG/DL (80-115)
[2017-10-28] MEDS: SENNA 8.6 MG TAB (SENOKOT) PO (21:00)
[2017-10-28] MEDS: ROSUVASTATIN 10 MG TAB (CRESTOR) PO (21:07)
[2017-10-28] MEDS: ASPIRIN ENTERIC 325 MG TAB PO (21:07)
[2017-10-29] MEDS: HEPARIN SOD (PORCINE) 5000 UNITS/ML VIAL SQ ×3 (05:45→22:02)
[2017-10-29] MEDS: LEVOTHYROXINE 50MCG TABLET (0.05MG) PO (05:45)
[2017-10-29] MEDS: ACETAMINOPHEN TAB 650MG DOSE (2X325MG) PO ×2 (05:47→12:25)
[2017-10-29 06:13] LABS: BEDSIDE GLUCOSE 100 MG/DL (80-115)
[2017-10-29] MEDS: HumaLOG INSULIN (NovoLOG) PER UNIT SC ×4 (06:17→20:32)
[2017-10-29] MEDS: FERROUS GLUCONATE 324 MG TAB PO (08:22)
[2017-10-29] MEDS: amLODIPine 10 MG TAB PO (08:22)
[2017-10-29] MEDS: POTASSIUM CHLORIDE 10 MEQ SR TABLET PO (08:22)
[2017-10-29] MEDS: VITAMIN D 1,000 INTERNATIONAL UNITS TABLET PO (08:22)
[2017-10-29] MEDS: DOCUSATE SODIUM 100 MG CAP PO ×2 (08:23→20:33)
[2017-10-29] MEDS: FUROSEMIDE 40 MG TAB PO (08:23)
[2017-10-29] MEDS: FAMOTIDINE 20 MG TAB PO ×2 (08:23→20:32)
[2017-10-29] MEDS: PENTOXIFYLLINE 400 MG TAB PO ×3 (08:23→17:38)
[2017-10-29] MEDS: EUCERIN 120GM CREAM TOP (08:24)
[2017-10-29] MEDS: LEVEMIR (INSULIN DETEMIR) 1 UNITS/0.01ML SC (08:24)
[2017-10-29] MEDS: MIRALAX *UNIT DOSE* 17GM PACKET PO (08:24)
[2017-10-29 11:31] LABS: BEDSIDE GLUCOSE 168 MG/DL (80-115)
[2017-10-29 16:14] LABS: BEDSIDE GLUCOSE 130 MG/DL (80-115)
[2017-10-29 20:02] LABS: BEDSIDE GLUCOSE 210 MG/DL (80-115)
[2017-10-29] MEDS: ROSUVASTATIN 10 MG TAB (CRESTOR) PO (20:31)
[2017-10-29] MEDS: ASPIRIN ENTERIC 325 MG TAB PO (20:31)
[2017-10-29] MEDS: SENNA 8.6 MG TAB (SENOKOT) PO (20:32)
[2017-10-30 06:22] LABS: BEDSIDE GLUCOSE 89 MG/DL (80-115)
[2017-10-30] MEDS: LEVOTHYROXINE 50MCG TABLET (0.05MG) PO (06:22)
[2017-10-30] MEDS: ACETAMINOPHEN TAB 650MG DOSE (2X325MG) PO ×4 (06:22→22:03)
[2017-10-30] MEDS: HEPARIN SOD (PORCINE) 5000 UNITS/ML VIAL SQ ×3 (06:23→21:57)
[2017-10-30] MEDS: HumaLOG INSULIN (NovoLOG) PER UNIT SC ×4 (07:30→21:00)
[2017-10-30] MEDS: FUROSEMIDE 40 MG TAB PO (08:40)
[2017-10-30] MEDS: VITAMIN D 1,000 INTERNATIONAL UNITS TABLET PO (08:40)
[2017-10-30] MEDS: amLODIPine 10 MG TAB PO (08:41)
[2017-10-30] MEDS: MIRALAX *UNIT DOSE* 17GM PACKET PO (08:41)
[2017-10-30] MEDS: POTASSIUM CHLORIDE 10 MEQ SR TABLET PO (08:41)
[2017-10-30] MEDS: FAMOTIDINE 20 MG TAB PO ×2 (08:41→21:57)
[2017-10-30] MEDS: DOCUSATE SODIUM 100 MG CAP PO ×2 (08:41→21:57)
[2017-10-30] MEDS: PENTOXIFYLLINE 400 MG TAB PO ×3 (08:41→17:23)
[2017-10-30] MEDS: FERROUS GLUCONATE 324 MG TAB PO (08:41)
[2017-10-30] MEDS: LEVEMIR (INSULIN DETEMIR) 1 UNITS/0.01ML SC (08:42)
[2017-10-30] MEDS: EUCERIN 120GM CREAM TOP (08:42)
[2017-10-30 11:33] LABS: BEDSIDE GLUCOSE 139 MG/DL (80-115)
[2017-10-30 16:28] LABS: BEDSIDE GLUCOSE 96 MG/DL (80-115)
[2017-10-30 20:32] LABS: BEDSIDE GLUCOSE 234 MG/DL (80-115)
[2017-10-30] MEDS: SENNA 8.6 MG TAB (SENOKOT) PO (21:00)
[2017-10-30] MEDS: ASPIRIN ENTERIC 325 MG TAB PO (21:57)
[2017-10-30] MEDS: ROSUVASTATIN 10 MG TAB (CRESTOR) PO (21:57)
[2017-10-31] MEDS: LEVOTHYROXINE 50MCG TABLET (0.05MG) PO (05:32)
[2017-10-31] MEDS: HEPARIN SOD (PORCINE) 5000 UNITS/ML VIAL SQ ×3 (05:33→21:28)
[2017-10-31] MEDS: ACETAMINOPHEN TAB 650MG DOSE (2X325MG) PO ×2 (05:33→21:29)
[2017-10-31 06:02] LABS: BEDSIDE GLUCOSE 76 MG/DL (80-115)
[2017-10-31 07:40] LABS: HEMATOCRIT 34.3 % (36.0-47.0); HEMOGLOBIN 10.9 g/dl (12.0-15.5); MEAN CORPUSCULAR HEMOGLOBIN 30.9 pg (27.0-33.0); MEAN CORPUSCULAR HGB CONC 31.8 g/dl (32.0-36.5); MEAN CORPUSCULAR VOLUME 97.2 fl (80.0-96.0); PLATELET COUNT, AUTOMATED 271 10^3/uL (150-450); RED BLOOD COUNT 3.53 10^6/uL (4.00-5.40); RED CELL DISTRIBUTION WIDTH 15.7 % (11.5-14.5); WHITE BLOOD COUNT 5.7 10^3/uL (4.0-10.0)
[2017-10-31] MEDS: HumaLOG INSULIN (NovoLOG) PER UNIT SC ×4 (08:03→20:09)
[2017-10-31] MEDS: FAMOTIDINE 20 MG TAB PO ×2 (08:04→20:07)
[2017-10-31] MEDS: LEVEMIR (INSULIN DETEMIR) 1 UNITS/0.01ML SC (08:04)
[2017-10-31] MEDS: PENTOXIFYLLINE 400 MG TAB PO ×3 (08:04→17:10)
[2017-10-31] MEDS: FERROUS GLUCONATE 324 MG TAB PO (08:04)
[2017-10-31] MEDS: FUROSEMIDE 40 MG TAB PO (08:04)
[2017-10-31] MEDS: amLODIPine 10 MG TAB PO (08:05)
[2017-10-31] MEDS: VITAMIN D 1,000 INTERNATIONAL UNITS TABLET PO (08:05)
[2017-10-31] MEDS: MIRALAX *UNIT DOSE* 17GM PACKET PO (08:05)
[2017-10-31] MEDS: DOCUSATE SODIUM 100 MG CAP PO ×2 (08:05→20:08)
[2017-10-31] MEDS: POTASSIUM CHLORIDE 10 MEQ SR TABLET PO (08:05)
[2017-10-31] MEDS: EUCERIN 120GM CREAM TOP (08:06)
[2017-10-31 08:27] LABS: ALBUMIN 2.7 GM/DL (3.2-5.2); ALBUMIN/GLOBULIN RATIO 0.71 (1.00-1.93); ALKALINE PHOSPHATASE 72 U/L (45-117); ALT/SGPT 17 U/L (12-78); ANION GAP 7 MEQ/L (8-16); AST/SGOT 13 U/L (7-37); BILIRUBIN,TOTAL 0.3 MG/DL (0.2-1.0); BLOOD UREA NITROGEN 19 MG/DL (7-18); C REACTIVE PROTEIN QUANTITATIV 0.41 MG/DL (0.00-0.30); CALCIUM LEVEL 8.8 MG/DL (8.8-10.2); CARBON DIOXIDE LEVEL 30 MEQ/L (21-32); CHLORIDE LEVEL 106 MEQ/L (98-107); CREATININE FOR GFR 1.34 MG/DL (0.55-1.30); GLUCOSE, FASTING 87 MG/DL (70-100); POTASSIUM SERUM 4.2 MEQ/L (3.5-5.1); SODIUM LEVEL 143 MEQ/L (136-145); TOTAL PROTEIN 6.5 GM/DL (6.4-8.2)
[2017-10-31 12:05] LABS: BEDSIDE GLUCOSE 125 MG/DL (80-115)
[2017-10-31 16:36] LABS: BEDSIDE GLUCOSE 192 MG/DL (80-115)
[2017-10-31] MEDS: FUROSEMIDE 20 MG TAB PO (17:10)
[2017-10-31 20:07] LABS: BEDSIDE GLUCOSE 152 MG/DL (80-115)
[2017-10-31] MEDS: ASPIRIN ENTERIC 325 MG TAB PO (20:07)
[2017-10-31] MEDS: SENNA 8.6 MG TAB (SENOKOT) PO (20:09)
[2017-10-31] MEDS: ROSUVASTATIN 10 MG TAB (CRESTOR) PO (20:09)
[2017-11-01] MEDS: HEPARIN SOD (PORCINE) 5000 UNITS/ML VIAL SQ ×3 (06:21→21:07)
[2017-11-01] MEDS: LEVOTHYROXINE 50MCG TABLET (0.05MG) PO (06:21)
[2017-11-01 07:46] LABS: BEDSIDE GLUCOSE 125 MG/DL (80-115)
[2017-11-01] MEDS: FAMOTIDINE 20 MG TAB PO ×2 (09:03→21:06)
[2017-11-01] MEDS: FERROUS GLUCONATE 324 MG TAB PO (09:03)
[2017-11-01] MEDS: HumaLOG INSULIN (NovoLOG) PER UNIT SC ×4 (09:03→21:00)
[2017-11-01] MEDS: FUROSEMIDE 40 MG TAB PO (09:04)
[2017-11-01] MEDS: POTASSIUM CHLORIDE 10 MEQ SR TABLET PO (09:04)
[2017-11-01] MEDS: VITAMIN D 1,000 INTERNATIONAL UNITS TABLET PO (09:04)
[2017-11-01] MEDS: PENTOXIFYLLINE 400 MG TAB PO ×3 (09:04→17:32)
[2017-11-01] MEDS: amLODIPine 10 MG TAB PO (09:04)
[2017-11-01] MEDS: MIRALAX *UNIT DOSE* 17GM PACKET PO (09:05)
[2017-11-01] MEDS: EUCERIN 120GM CREAM TOP (09:05)
[2017-11-01] MEDS: LEVEMIR (INSULIN DETEMIR) 1 UNITS/0.01ML SC (09:05)
[2017-11-01] MEDS: DOCUSATE SODIUM 100 MG CAP PO ×2 (09:05→21:00)
[2017-11-01 09:27] LABS: HEMATOCRIT 34.4 % (36.0-47.0); HEMOGLOBIN 11.4 g/dl (12.0-15.5); MEAN CORPUSCULAR HEMOGLOBIN 31.4 pg (27.0-33.0); MEAN CORPUSCULAR HGB CONC 33.1 g/dl (32.0-36.5); MEAN CORPUSCULAR VOLUME 94.8 fl (80.0-96.0); PLATELET COUNT, AUTOMATED 278 10^3/uL (150-450); RED BLOOD COUNT 3.63 10^6/uL (4.00-5.40); RED CELL DISTRIBUTION WIDTH 15.8 % (11.5-14.5); WHITE BLOOD COUNT 5.8 10^3/uL (4.0-10.0)
[2017-11-01 09:53] LABS: ALBUMIN 2.9 GM/DL (3.2-5.2); ALBUMIN/GLOBULIN RATIO 0.81 (1.00-1.93); ALKALINE PHOSPHATASE 93 U/L (45-117); ALT/SGPT 18 U/L (12-78); ANION GAP 8 MEQ/L (8-16); AST/SGOT 17 U/L (7-37); BILIRUBIN,TOTAL 0.4 MG/DL (0.2-1.0); BLOOD UREA NITROGEN 19 MG/DL (7-18); CALCIUM LEVEL 8.5 MG/DL (8.8-10.2); CARBON DIOXIDE LEVEL 30 MEQ/L (21-32); CHLORIDE LEVEL 105 MEQ/L (98-107); CREATININE FOR GFR 1.48 MG/DL (0.55-1.30); GLOMERULAR FILTRATION RATE 37.4 (>45); GLUCOSE, FASTING 149 MG/DL (70-100); POTASSIUM SERUM 4.1 MEQ/L (3.5-5.1); SODIUM LEVEL 143 MEQ/L (136-145); TOTAL PROTEIN 6.5 GM/DL (6.4-8.2)
[2017-11-01 11:31] LABS: BEDSIDE GLUCOSE 75 MG/DL (80-115)
[2017-11-01 16:11] LABS: BEDSIDE GLUCOSE 166 MG/DL (80-115)
[2017-11-01 19:38] LABS: BEDSIDE GLUCOSE 172 MG/DL (80-115)
[2017-11-01] MEDS: SENNA 8.6 MG TAB (SENOKOT) PO (21:00)
[2017-11-01] MEDS: ASPIRIN ENTERIC 325 MG TAB PO (21:05)
[2017-11-01] MEDS: ROSUVASTATIN 10 MG TAB (CRESTOR) PO (21:06)
[2017-11-02] MEDS: HEPARIN SOD (PORCINE) 5000 UNITS/ML VIAL SQ ×3 (05:47→21:14)
[2017-11-02] MEDS: LEVOTHYROXINE 50MCG TABLET (0.05MG) PO (05:47)
[2017-11-02 06:36] LABS: BASO # 0.1 10^3/uL (0.0-0.2); BASO % 0.8 % (0.0-1.0); EOS # 0.4 10^3/uL (0.0-0.50); EOS % 7.1 % (0.0-3.0); HEMOGLOBIN 10.5 g/dl (12.0-15.5); IMMATURE GRANULOCYTE % 0.5 % (0-3.0); LYMPH # 1.3 10^3/uL (1.5-4.5); MEAN CORPUSCULAR HEMOGLOBIN 31.2 pg (27.0-33.0); MEAN CORPUSCULAR HGB CONC 32.8 g/dl (32.0-36.5); MONO # 0.6 10^3/uL (0.0-0.8); MONO % 9.1 % (0.0-5.0); NEUTROPHILS # 3.8 10^3/uL (1.8-7.7); NEUTROPHILS % 61.5 % (36.0-66.0); PLATELET COUNT, AUTOMATED 248 10^3/uL (150-450); RED BLOOD COUNT 3.37 10^6/uL (4.00-5.40); RED CELL DISTRIBUTION WIDTH 15.5 % (11.5-14.5); WHITE BLOOD COUNT 6.2 10^3/uL (4.0-10.0)
[2017-11-02 06:53] LABS: ANION GAP 7 MEQ/L (8-16); BLOOD UREA NITROGEN 18 MG/DL (7-18); CALCIUM LEVEL 8.7 MG/DL (8.8-10.2); CARBON DIOXIDE LEVEL 31 MEQ/L (21-32); CHLORIDE LEVEL 107 MEQ/L (98-107); CREATININE FOR GFR 1.24 MG/DL (0.55-1.30); GLOMERULAR FILTRATION RATE 45.9 (>45); GLUCOSE, FASTING 84 MG/DL (70-100); MAGNESIUM LEVEL 1.7 MG/DL (1.8-2.4); POTASSIUM SERUM 3.3 MEQ/L (3.5-5.1); SODIUM LEVEL 145 MEQ/L (136-145)
[2017-11-02] MEDS: HumaLOG INSULIN (NovoLOG) PER UNIT SC ×4 (07:30→21:00)
[2017-11-02] MEDS: PENTOXIFYLLINE 400 MG TAB PO ×3 (07:54→17:39)
[2017-11-02] MEDS: VITAMIN D 1,000 INTERNATIONAL UNITS TABLET PO (07:55)
[2017-11-02] MEDS: FERROUS GLUCONATE 324 MG TAB PO (07:55)
[2017-11-02] MEDS: FUROSEMIDE 40 MG TAB PO (07:58)
[2017-11-02] MEDS: amLODIPine 10 MG TAB PO (07:58)
[2017-11-02] MEDS: FAMOTIDINE 20 MG TAB PO ×2 (07:58→21:12)
[2017-11-02] MEDS: EUCERIN 120GM CREAM TOP (07:58)
[2017-11-02] MEDS: LEVEMIR (INSULIN DETEMIR) 1 UNITS/0.01ML SC (07:59)
[2017-11-02] MEDS: DOCUSATE SODIUM 100 MG CAP PO ×2 (07:59→21:00)
[2017-11-02] MEDS: MIRALAX *UNIT DOSE* 17GM PACKET PO (07:59)
[2017-11-02] MEDS: POTASSIUM CHLORIDE 10 MEQ SR TABLET PO ×2 (08:00→12:08)
[2017-11-02 12:01] LABS: BEDSIDE GLUCOSE 133 MG/DL (80-115)
[2017-11-02] MEDS: MAGNESIUM GLUCONATE 500 MG TAB PO (12:08)
[2017-11-02] MEDS: ACETAMINOPHEN TAB 650MG DOSE (2X325MG) PO (14:32)
[2017-11-02 17:14] LABS: BEDSIDE GLUCOSE 76 MG/DL (80-115)
[2017-11-02 20:29] LABS: BEDSIDE GLUCOSE 213 MG/DL (80-115)
[2017-11-02] MEDS: SENNA 8.6 MG TAB (SENOKOT) PO (21:00)
[2017-11-02] MEDS: ASPIRIN ENTERIC 325 MG TAB PO (21:12)
[2017-11-02] MEDS: ROSUVASTATIN 10 MG TAB (CRESTOR) PO (21:13)
[2017-11-03] MEDS: LEVOTHYROXINE 50MCG TABLET (0.05MG) PO (06:44)
[2017-11-03] MEDS: HEPARIN SOD (PORCINE) 5000 UNITS/ML VIAL SQ (06:44)
[2017-11-03 06:50] LABS: BEDSIDE GLUCOSE 103 MG/DL (80-115)
[2017-11-03] MEDS: HumaLOG INSULIN (NovoLOG) PER UNIT SC (08:20)
[2017-11-03] MEDS: FERROUS GLUCONATE 324 MG TAB PO (08:21)
[2017-11-03] MEDS: LEVEMIR (INSULIN DETEMIR) 1 UNITS/0.01ML SC (08:21)
[2017-11-03] MEDS: PENTOXIFYLLINE 400 MG TAB PO (08:22)
[2017-11-03] MEDS: FUROSEMIDE 40 MG TAB PO (08:22)
[2017-11-03] MEDS: FAMOTIDINE 20 MG TAB PO (08:22)
[2017-11-03] MEDS: MAGNESIUM GLUCONATE 500 MG TAB PO (08:22)
[2017-11-03] MEDS: DOCUSATE SODIUM 100 MG CAP PO (08:26)
[2017-11-03] MEDS: MIRALAX *UNIT DOSE* 17GM PACKET PO (08:26)
[2017-11-03] MEDS: POTASSIUM CHLORIDE 10 MEQ SR TABLET PO (08:26)
[2017-11-03] MEDS: amLODIPine 10 MG TAB PO (08:26)
[2017-11-03] MEDS: EUCERIN 120GM CREAM TOP (08:27)
[2017-11-03] MEDS: VITAMIN D 1,000 INTERNATIONAL UNITS TABLET PO (08:32)
== END 2017-11-03 11:45 | disposition home health service (06) | DRG 560 ==
LOC: M PM&R 10-25 19:17
PROVIDERS: Physical Medicine & Rehabilitation
DX: Z47.81 Encounter for orthopedic aftercare following surgical amputation (principal); D62 Acute posthemorrhagic anemia; Z68.43 Body mass index [BMI] 50.0-59.9, adult; N17.9 Acute kidney failure, unspecified; E11.51 Type 2 diabetes mellitus with diabetic peripheral angiopathy without gangrene; E66.01 Morbid (severe) obesity due to excess calories; E78.5 Hyperlipidemia, unspecified; I12.9 Hypertensive chronic kidney disease with stage 1 through stage 4 chronic kidney disease, or unspecified chronic kidney disease; E03.9 Hypothyroidism, unspecified; E11.65 Type 2 diabetes mellitus with hyperglycemia; D50.9 Iron deficiency anemia, unspecified; N18.3 Chronic kidney disease, stage 3 (moderate); S80.822A Blister (nonthermal), left lower leg, initial encounter; E87.6 Hypokalemia; E11.22 Type 2 diabetes mellitus with diabetic chronic kidney disease; E55.9 Vitamin D deficiency, unspecified; Z95.820 Peripheral vascular angioplasty status with implants and grafts; Z90.49 Acquired absence of other specified parts of digestive tract; Z79.82 Long term (current) use of aspirin; Z79.4 Long term (current) use of insulin; Z79.899 Other long term (current) drug therapy; Z88.8 Allergy status to other drugs, medicaments and biological substances; X58.XXXA Exposure to other specified factors, initial encounter; Y92.239 Unspecified place in hospital as the place of occurrence of the external cause

== ENCOUNTER 2018-08-16 10:21 | Inpatient (IN) | payer MEDICARE, BC ==
[~2018-08-16] VITALS: Ht 149.9 cm; Wt 103.6 kg
[~2018-08-16 10:21] MED LIST changes: +AMLO10TA5 PO; +AMLO2.5T3 PO; +AMLO5TAB6 PO; +AMOX875T2 PO; +ASPI-255 PO; +Acetaminophen Tab PO; -BISACODYL 10 MG SUPP PR; -BISACODYL 5 MG TAB PO; +BYST5TAB2 PO; +COMB0.2S OU; -DEXTROSE 50% 50 ML SYRINGE IV; +FAMO20TA PO; +FERR1TAB8 PO; +FERR325T16 PO; -FLEET ENEMA PR; +FURO40TA2 PO; +GARL10004 PO; +GARL200T2 PO; -GLUCAGON FOR INJ 1 MG VIAL (J1610) SC; -GLUCOSE 4 GM CHEW TABLET PO; +LANTINJ4 SC; +LEVO25TA5 PO; +LEVO50TA5 PO; +LOSA100T8 PO; +MAGN50TA PO; +METF-791 PO; -MOM 30ML SUSPENSION UDC PO; -NORCO, ANEXSIA 5/325MG TABLET (HYDROcodone/ACETAMINOPHEN) PO; -ONDANSETRON 4 MG TAB (S0181) PO; -ONDANSETRON 4MG/2ML VIAL (J2405) IM; +PENT400T47 PO; +POTA10TA14 PO; +ROSU5TAB5 PO; +SIMV40TA20 PO; +TYLE650T35 PO; +VITA-182 PO; +[UNRECOGNIZED DRUG - CODE] PO
[2018-08-16] MEDS ORDERED: AMLO25TA PO (10:35)
[2018-08-16 12:59] LABS: BASO # 0.1 10^3/uL (0.0-0.2); BASO % 0.4 % (0.0-1.0); EOS # 0.3 10^3/uL (0.0-0.50); EOS % 2.1 % (0.0-3.0); HEMATOCRIT 36.3 % (36.0-47.0); HEMOGLOBIN 12.3 g/dl (12.0-15.5); LYMPH # 1.9 10^3/uL (1.5-4.5); LYMPH % 14.1 % (24.0-44.0); MEAN CORPUSCULAR HEMOGLOBIN 31.9 pg (27.0-33.0); MEAN CORPUSCULAR HGB CONC 33.9 g/dl (32.0-36.5); MEAN CORPUSCULAR VOLUME 94.3 fl (80.0-96.0); MONO # 0.7 10^3/uL (0.0-0.8); MONO % 5.5 % (0.0-5.0); NEUTROPHILS # 10.2 10^3/uL (1.8-7.7); NEUTROPHILS % 77.4 % (36.0-66.0); PLATELET COUNT, AUTOMATED 378 10^3/uL (150-450); RED BLOOD COUNT 3.85 10^6/uL (4.00-5.40); WHITE BLOOD COUNT 13.2 10^3/uL (4.0-10.0)
[2018-08-16 13:28] LABS: ERYTHROCYTE SEDIMENTATION RATE 126 mm/hr (0-30)
[2018-08-16] MEDS ORDERED: AMLO5TAB6 PO (14:39)
[2018-08-16] MEDS ORDERED: D31000TA PO (14:39)
[2018-08-16] MEDS ORDERED: HYDR10TAB PO (14:39)
[2018-08-16] MEDS ORDERED: HM G1TAB PO (14:40)
--- NOTE | 2018-08-16 14:43 | REP ---
LEFT FOOT, FOUR VIEWS: Four views of the left foot performed. No acute fracture or dislocation is seen. I see no overt osseous destruction or periosteal reaction and therefore no definite radiographic evidence of osteomyelitis. There is significant soft tissue calcification diffusely in the visualized distal lower leg. Scattered vascular calcifications are seen in the soft tissues of the foot and ankle. Moderate inferior calcaneal spurring is seen. There is moderate joint space narrowing with subchondral sclerosis and spurring at the first metatarsal phalangeal joint. There is diffuse narrowing of the interphalangeal joints. IMPRESSION: No acute fracture or dislocation. No definite acute radiographic findings of osteomyelitis. Electronically Signed by Fercho Arcos MD 08/17/2018 12:30 P
[2018-08-16] MEDS ORDERED: PIPERACILLIN/TAZOBACTAM SOD 3.375 GM in D5W MINI-BAG PLUS 50 ML IV ONE (15:30)
[2018-08-16] MEDS ORDERED: MOM 30ML SUSPENSION UDC PO PRN (16:00)
[2018-08-16] MEDS: FUROSEMIDE 40 MG TAB PO SCH (16:39)
[2018-08-16] MEDS: amLODIPine 5 MG TAB PO SCH (16:42)
[2018-08-16] MEDS ORDERED: GLUCOSE 4 GM CHEW TABLET PO PRN (17:00)
[2018-08-16] MEDS ORDERED: DEXTROSE 50% 50 ML SYRINGE IV PRN (17:00)
[2018-08-16] MEDS ORDERED: GLUCAGON FOR INJ 1 MG VIAL (J1610) SC PRN (17:00)
[2018-08-16 17:37] LABS: ALT/SGPT 10 U/L (12-78); BILIRUBIN,DIRECT < 0.1 MG/DL (0.0-0.2); BILIRUBIN,TOTAL 0.2 MG/DL (0.2-1.0); BLOOD UREA NITROGEN 22 MG/DL (7-18); CALCIUM LEVEL 9.6 MG/DL (8.8-10.2); CARBON DIOXIDE LEVEL 26 MEQ/L (21-32); CHLORIDE LEVEL 108 MEQ/L (98-107); CREATININE FOR GFR 1.12 MG/DL (0.55-1.30); GLOMERULAR FILTRATION RATE 51.5 (>45); GLUCOSE, FASTING 79 MG/DL (70-100); SODIUM LEVEL 141 MEQ/L (136-145); TOTAL PROTEIN 7.5 GM/DL (6.4-8.2)
[2018-08-16] MEDS ORDERED: PROHANCE 279.3MG/ML 15ML VIAL (A9576) As Ordered ONE (17:37)
[2018-08-16] MEDS ORDERED: PROHANCE 279.3MG/ML 5ML VIAL (A9576) As Ordered ONE ×2 (17:37→17:55)
[2018-08-16] MEDS: HumaLOG INSULIN (NovoLOG) PER UNIT SC SCH ×2 (18:54→20:51)
[2018-08-16] MEDS ORDERED: VANCOMYCIN HCL 1,000 MG, VIAL MATE ADAPTER 1 EACH in D5W 250 ML IV ONE (19:15)
--- NOTE | 2018-08-16 19:21 | REPVR ---
EXAM: MR Left Lower Extremity Without and With Contrast, Foot EXAM DATE/TIME: 08/16/2018 6:45 PM CLINICAL HISTORY: 68 years old, female; Pain and signs and symptoms; Patient HX: Left heel ulcer; Additional info: Left heel infection to rule out osteomyelitis TECHNIQUE: Imaging protocol: MR of the Left foot without and with intravenous contrast. Contrast material: PROHANCE; Contrast volume: 10 ml; Contrast route: IV; COMPARISON: MRI FOOT WITHOUT CONTRAST 10/12/2017 10:49 AM FINDINGS: LIGAMENTS: Medial collateral: Unremarkable. No evidence of tear. Lateral collateral: Unremarkable. No evidence of tear. Lisfranc: Unremarkable. No evidence of tear. TENDONS: Flexors: Unremarkable. No evidence of tear. Extensors: Unremarkable. No evidence of tear. Peroneal: Unremarkable. No evidence of tear. Tibialis anterior: Unremarkable. No evidence of tear. Tibialis posterior: Unremarkable. No evidence of tear. Muscles: Unremarkable. Fluid: Unremarkable. No joint effusion. Sinus tarsi: Unremarkable. Tarsal tunnel: Unremarkable. Plantar fascia: Unremarkable. Cartilage: Unremarkable. Bones/joints: No abnormal marrow space signal demonstrated. No abnormal enhancement in the calcaneus or elsewhere in the osseous structures on post gadolinium imaging. Hallux valgus deformity. Hammertoe deformities. Soft tissues: Diffuse edema in the subcutaneous tissues of the foot most pronounced along the dorsal and lateral soft tissues of the mid and forefoot. Clinical correlation to exclude infection such as cellulitis suggested. IMPRESSION: 1. Diffuse edema in the subcutaneous tissues of the foot most pronounced along the dorsal and lateral soft tissues of the mid and forefoot. Clinical correlation to exclude infection such as cellulitis suggested. 2. No abnormal marrow space signal demonstrated. No abnormal enhancement in the calcaneus or elsewhere in the osseous structures on post gadolinium imaging to suggest osteomyelitis. Electronically signed by: Albert Castellanos On 08/16/2018 19:20:52 PM
[2018-08-16 20:40] VITALS: BP 174/86
--- NOTE | 2018-08-16 20:45 | PHACANCOPD ---
PHARMACY VANCOMYCIN DOSING Pt Demographics Demographics Patient Age:68 , Weight:103.640 , Gender: female Adjusted Body Weight Date: 08/16/18, Adjusted Body Weight: Kg Events Past 24 Hours Events Past 24 Hours: NO: Dialysis, Diuretic Therapy, Change in CrCl, Fever, Elevation in WBC, Pending Diagnostics, Pending Procedures, Other Vancomycin Vancomycin Target Ranges: 10-20 mcg/ml Vancomycin Load Y/N: Yes Load Dose Date Time Vancomycin Load Dose: 2000mg Date: 08-17 Time: 1200 Vancomycin Dose Date: 08/16/18. Current Vancomycin Dose: [1000mg q8h] Intermittent Dosing?: No Labs Labs Item Value Date Time White Blood Count 13.2 10^3/uL H 08/16/18 1241 Glomerular Filtration Rate 51.5 08/16/18 1605 Creatinine 1.12 MG/DL 08/16/18 1605 Blood Urea Nitrogen 22 MG/DL H 08/16/18 1605 Vital Signs Label Value Date Time Patient Temperature 99.1 degrees F 08/16/182009 Temperature Source Oral 08/16/182009 Micro Microbiology 08/16/18 Blood Culture, Received Pending 08/16/18 Blood Culture, Received Pending 08/16/18 Gram Stain - Final, Resulted 08/16/18 Wound Culture, Resulted Pending Creatinine Clearance Date:08/16/18. Creatinine Clearance: [30-40]. Pending Labs Trough 08-17 @1200 Assessment and Plan Maintaining Current Dose?: Yes Reason for dose change: No Dose Change Pharmacist Note Pharmacist Note Date: 08/16/18. Pharmacist note:Will monitor and make adjustments as needed. ISABELLA [facility]IG[facility] August 16, 2018 20:45
[2018-08-16] MEDS: DOCUSATE SODIUM 100 MG CAP PO SCH (20:50)
[2018-08-16] MEDS: TIMOLOL MALEATE 0.5% OPHTH SOLN 5 ML OU SCH (21:00)
[2018-08-16] MEDS: VANCOMYCIN HCL 1,000 MG, VIAL MATE ADAPTER 1 EACH in D5W 250 ML IV SCH (21:00)
[2018-08-16] MEDS: BRIMONIDINE 0.15% OPHTH SOLN 5 ML OU SCH (21:00)
--- NOTE | 2018-08-16 21:09 | HPE ---
DATE OF ADMISSION: 08/16/2018 PRIMARY CARE PROVIDER: Dr. Winn VASCULAR SURGEON: Dr. Durbin ATTENDING PHYSICIAN: Dr. Villegas CHIEF COMPLAINT: Worsening infection in left heel. HISTORY OF PRESENT ILLNESS: The patient is a 68-year-old white female with history of diabetes who presented to the emergency room (ER) for worsening left heel infection. Thy history is provided by herself as well as by review of the chart. Per the patient, she had a history of right lower extremity infection and had an above-knee amputation (AKA) done last year. She has chronic wound infection in her left lower extremity. For now, she is following up with wound care center. Her current wound actually is healing pretty well. Also, she is followed with Dr. Durbin for possible peripheral vascular disease. She states in the last few weeks she has an infection in her left heel which is getting worse gradually. However, she did not receive any antibiotic treatment so far. Today, she went to see her kettle skimmer, Dr. Esquivel, and was referred to the ER for further evaluation. Otherwise, she denies any fever. No chills. No other symptoms. In the ER, she was given IV antibiotics. Meanwhile, medicine service called for the admission. REVIEW OF SYSTEMS: Denies fever. No chills. No headache. No blurry vision. No shortness of breath. No chest pain. No coughing. No abdominal pain. No diarrhea. All other systems reviewed and are negative. PAST MEDICAL HISTORY: 1. Type 2 diabetes. 2. Hypertension. 3. Dyslipidemia. 4. Chronic kidney disease (CKD), stage III. 5. Peripheral vascular disease. PAST SURGICAL HISTORY: 1. Right above-knee amputation (AKA). 2. Status post cholecystectomy. 3. Cataract surgery. ALLERGIES: She is allergic to PLAVIX, which causes a rash. SOCIAL HISTORY: Denies tobacco use. Denies alcohol abuse. Denies illicit drug abuse. She lives with . She is a full code. FAMILY HISTORY: Both parents and her father had a history of Parkinson's disease. Her mother had a history of cancer. PHYSICAL EXAMINATION: VITAL SIGNS: Temperature is 98, heart rate 73, respiratory rate 20, blood pressure 211/95, and oxygen saturation 99% on room air. GENERAL: She is awake, alert and oriented times three. She is not in acute distress. HEENT: Atraumatic. Pupils are equal, round, and react to light. No jaundice. Extraocular muscles intact. Ears, nose and throat are normal. Mouth: Mucous not dry. NECK: No jugular venous distention (JVD). No bruits. LUNGS: Clear. No wheezing. No crackles. HEART: S1, S2, regular. No murmur. ABDOMEN: Soft. Bowel sounds positive. Nontender. EXTREMITIES: Lower extremities: She has right above-knee amputation (AKA). Left lower extremity which is healing well. However, she has the infected wound in her left heel with bad smell but no drainage. DIAGNOSTIC LABORATORY DATA: Includes the following: CBC and differential: WBC 13, hemoglobin and hematocrit 12.3/36, platelets 378. Basic metabolic profile is pending. X-ray of her left foot which was insignificant. IMPRESSION: 1. Left heel infection, need to rule out osteomyelitis. 2. Type 2 diabetes. 3. Hypertension. 4. Dyslipidemia. 5. Chronic kidney disease (CKD), stage III. 6. Peripheral vascular disease. PLAN: The patient will be admitted to the medical/surgical floor. We will treat her with IV Zosyn and vancomycin. We will schedule MRI to rule out osteomyelitis in left heel. We will consult Dr. Durbin. We will continue her home medications including insulin. Heparin will be used for deep vein thrombosis (DVT) prophylaxis.
[2018-08-16] MEDS: ROSUVASTATIN 10 MG TAB (CRESTOR) PO SCH (21:30)
[2018-08-16] MEDS: ASPIRIN ENTERIC 325 MG TAB PO SCH (21:31)
[2018-08-16] MEDS: **hydrALAZINE** 10 MG TAB PO SCH (21:31)
[2018-08-16] MEDS: ACETAMINOPHEN TAB 650MG DOSE (2X325MG) PO PRN (21:31)
[2018-08-16] MEDS: HEPARIN SOD (PORCINE) 5000 UNITS/ML VIAL SC SCH (21:32)
[2018-08-16] MEDS: PIPERACILLIN/TAZOBACTAM SOD 3.375 GM in D5W MINI-BAG PLUS 50 ML IV SCH (21:32)
[2018-08-17] MEDS: ACETAMINOPHEN TAB 650MG DOSE (2X325MG) PO PRN ×4 (01:29→22:07)
[2018-08-17] MEDS: PIPERACILLIN/TAZOBACTAM SOD 3.375 GM in D5W MINI-BAG PLUS 50 ML IV SCH ×4 (04:09→21:56)
[2018-08-17] MEDS: VANCOMYCIN HCL 1,000 MG, VIAL MATE ADAPTER 1 EACH in D5W 250 ML IV SCH ×2 (05:19→14:46)
[2018-08-17 06:00] VITALS: BP 177/78
[2018-08-17] MEDS: LEVOTHYROXINE 50MCG TABLET (0.05MG) PO SCH (06:14)
[2018-08-17 06:36] LABS: HEMATOCRIT 32.4 % (36.0-47.0); HEMOGLOBIN 10.9 g/dl (12.0-15.5); MEAN CORPUSCULAR HEMOGLOBIN 31.8 pg (27.0-33.0); MEAN CORPUSCULAR HGB CONC 33.6 g/dl (32.0-36.5); MEAN CORPUSCULAR VOLUME 94.5 fl (80.0-96.0); PLATELET COUNT, AUTOMATED 353 10^3/uL (150-450); RED BLOOD COUNT 3.43 10^6/uL (4.00-5.40); WHITE BLOOD COUNT 11.4 10^3/uL (4.0-10.0)
[2018-08-17 06:55] LABS: CALCIUM LEVEL 8.8 MG/DL (8.8-10.2); CREATININE FOR GFR 1.29 MG/DL (0.55-1.30); GLOMERULAR FILTRATION RATE 43.8 (>45); POTASSIUM SERUM 3.7 MEQ/L (3.5-5.1)
[2018-08-17] MEDS: HumaLOG INSULIN (NovoLOG) PER UNIT SC SCH ×4 (08:44→21:00)
[2018-08-17] MEDS: HEPARIN SOD (PORCINE) 5000 UNITS/ML VIAL SC SCH ×2 (08:44→21:55)
[2018-08-17] MEDS: LEVEMIR (INSULIN DETEMIR) 1 UNITS/0.01ML SC SCH (08:44)
[2018-08-17] MEDS: TIMOLOL MALEATE 0.5% OPHTH SOLN 5 ML OU SCH ×2 (08:46→21:56)
[2018-08-17] MEDS: BRIMONIDINE 0.15% OPHTH SOLN 5 ML OU SCH ×2 (08:46→21:55)
[2018-08-17] MEDS: MAGNESIUM GLUCONATE 500 MG TAB PO SCH (08:48)
[2018-08-17] MEDS: amLODIPine 5 MG TAB PO SCH (08:48)
[2018-08-17] MEDS: DOCUSATE SODIUM 100 MG CAP PO SCH ×2 (08:48→21:00)
[2018-08-17] MEDS: **hydrALAZINE** 10 MG TAB PO SCH ×2 (08:49→21:58)
[2018-08-17] MEDS: FERROUS GLUCONATE 324 MG TAB PO SCH (08:49)
[2018-08-17] MEDS: POTASSIUM CHLORIDE 10 MEQ SR TABLET PO SCH (08:49)
[2018-08-17] MEDS: FUROSEMIDE 40 MG TAB PO SCH (08:49)
[2018-08-17] MEDS: PENTOXIFYLLINE 400 MG TAB PO SCH (08:49)
[2018-08-17] MEDS: VITAMIN D 1,000 INTERNATIONAL UNITS TABLET PO SCH (08:50)
--- NOTE | 2018-08-17 10:06 | CR.PDOC ---
General Date of Consultation: August 17, 2018 Consultation CONSULTATION REPORT FOR: Dr Villegas REASON FOR CONSULTATION: LLE foot wound Vascular Surgery: Dr. Durbin HPI: The patient is a 68-year-old white female who presented to the emergency room (ER) for worsening left heel infection. She has a history of chronic wound Left pre tib area, she states this has been at baseline, has not seen Dr Ch for this issue for several months. She states in the last few weeks she has had a wound of her left heel which is getting worse gradually. She did not receive any antibiotic treatment so far. Today, she went to see her slate handler, Dr. Esquivel, and was referred to the ER for further evaluation. The pt was admitted to the Hospitalist service and vascular surgery consulted related to her h/o PVD and LLE heel wound. No acute medical complaints today. Denies any fevers, chills, weakness, fatigue, Headache, Chest Pain, Shortness of breath, cough, palpitations, abdominal pain, N/V/D or changes in bowel or bladder habits. PAST MEDICAL HISTORY: DM 2 Morbid obesity BMI 46.1 Peripheral Vascular disease Chronic right foot wound HLD HTN Hypothyroidism Cataracts CKD. Follows with Dr Hopson. PAST SURGICAL HISTORY: CATARACTS 03/2016 ANGIOPLASTY AND STENT LL2009 GALL BLADDER 2009 REVASCULARIZATION RIGHT LEG AUGUST 2017 RIGHT SECOND TOE AMPUTATION AUGUST 2017 Rt AKA 10/12. SOCIAL HISTORY: Denies tobacco use. Denies alcohol abuse. Denies illicit drug abuse. She lives with . She is a full code. FAMILY HISTORY: Both parents and her father had a history of Parkinson's disease. Her mother had a history of cancer. ROS: As noted in HPI, otherwise 11pt ROS of systems reviewed and unremarkable. PE: GEN: 68yoF, appears stated age. No acute distress. Alert and oriented x 3. HEENT: Normocephalic, atraumatic. Conjunctiva without injection. Moist mucous membranes. CHEST: Regular rate and rhythm, +S1, +S2 LUNGS: Clear to auscultation bilaterally. No wheezes, rales, or rhonchi. Breathing appears symmetric and easy. ABD: Round, soft, non-tender, non-distended. +Bowel sounds throughout. EXT: Rt AKA. LLE with pretibial wound noted, approx 4-5 cm diameter black appearing heel wound, no drainage. Surrounding erythema extending to mid pretib area. PT/DP Pulses monophasic with doppler. NEURO: Alert and oriented x 3. No focal deficits appreciated. Left foot MRI 1. Diffuse edema in the subcutaneous tissues of the foot most pronounced along the dorsal and lateral soft tissues of the mid and forefoot. Clinical correlation to exclude infection such as cellulitis suggested. 2. No abnormal marrow space signal demonstrated. No abnormal enhancement in the calcaneus or elsewhere in the osseous structures on post gadolinium imaging to suggest osteomyelitis. Electronically signed by: Albert Castellanos On 08/16/2018 19:20:52 PM A&P: The patient is a 68-year-old white female who presented to the emergency room (ER) for worsening left heel infection. She has a history of chronic wound Left pre tib area, she states this has been at baseline, has not seen Dr Ch for this issue for several months. She states in the last few weeks she has had a wound of her left heel which is getting worse gradually. She did not receive any antibiotic treatment so far. Today, she went to see her slate handler, Dr. Esquivel, and was referred to the ER for further evaluation. The pt was admitted to the Hospitalist service and vascular surgery consulted related to her h/o PVD and LLE heel wound. 1. PAD. Reviewed Pt with Dr Durbin, the pt is well known to Dr Durbin. Plan to arrange Angiogram LLE in near future, postponed today related to SCr 1.29 with GFR 43.8 which is slightly worse from the pt's baseline. Consider in the next 1-2 days pending renal function trend. 2. Non heeling Left heel wound. No OM as per MRI. Reviewed with Dr Durbin, possibly consider debridement of wound. 3. Left foot cellulitis. Mgmt as per Medicine. IV Vanco/Zosyn. BC x 2 pending. WC pending. DVT prophylaxis. SQ Heparin. Thank you for your consultation. We will continue to follow along with you. Vital Signs/I&O Vital Signs Date Time Temp Pulse Resp B/P (MAP) Pulse Ox O2 Delivery O2 Flow Rate FiO2 08/17/18 08:49 158/62 08/17/18 08:48 63 08/17/18 06:00 98.4 20 98 08/16/18 20:10 Room Air I&O- Last 24 Hours up to 6 AM 5/23/19 06:00 Intake Total 820 ml Output Total 1000 ml Balance -180 ml Laboratory Data Labs 24H Laboratory Tests 2 08/16/18 12:41: Immature Granulocyte % (Auto) 0.5, White Blood Count 13.2H, Red Blood Count 3.85L, Hemoglobin 12.3, Hematocrit 36.3, Mean Corpuscular Volume 94.3, Mean Corpuscular Hemoglobin 31.9, Mean Corpuscular Hemoglobin Concent 33.9, Red Cell Distribution Width 12.3, Platelet Count 378, Neutrophils (%) (Auto) 77.4H, Lymphocytes (%) (Auto) 14.1L, Monocytes (%) (Auto) 5.5H, Eosinophils (%) (Auto) 2.1, Basophils (%) (Auto) 0.4, Neutrophils # (Auto) 10.2H, Lymphocytes # (Auto) 1.9, Monocytes # (Auto) 0.7, Eosinophils # (Auto) 0.3, Basophils # (Auto) 0.1, Nucleated Red Blood Cells % (auto) 0.0, Erythrocyte Sedimentation Rate 126H 08/16/18 12:42: Lactic Acid Level 1.2 08/16/18 16:05: Anion Gap 7L, Glomerular Filtration Rate 51.5, Calcium Level 9.6, Aspartate Amino Transf (AST/SGOT) 9, Alanine Aminotransferase (ALT/SGPT) 10L, Alkaline Phosphatase 59, Total Bilirubin 0.2, Direct Bilirubin < 0.1, C-Reactive Protein, Quantitative 6.50H, Total Protein 7.5, Albumin 3.0L, Albumin/Globulin Ratio 0.67L 08/16/18 18:51: Bedside Glucose (Misc Panel) 85 08/16/18 20:45: Bedside Glucose (Misc Panel) 208H 08/17/18 05:44: Bedside Glucose (Misc Panel) 105 08/17/18 06:05: Nucleated Red Blood Cells % (auto) 0.0, Anion Gap 6L, Glomerular Filtration Rate 43.8L, Blood Urea Nitrogen 23H, Creatinine 1.29, Sodium Level 139, Potassium Level 3.7, Chloride Level 105, Carbon Dioxide Level 28, Calcium Level 8.8 CBC/BMP Laboratory Tests 08/16/18 12:41 Red Blood Count 3.85 L, Mean Corpuscular Volume 94.3, Mean Corpuscular Hemoglobin 31.9, Mean Corpuscular Hemoglobin Concent 33.9, Red Cell Distribution Width 12.3, Neutrophils (%) (Auto) 77.4 H, Lymphocytes (%) (Auto) 14.1 L, Monocytes (%) (Auto) 5.5 H, Eosinophils (%) (Auto) 2.1, Basophils (%) (Auto) 0.4, Neutrophils # (Auto) 10.2 H, Lymphocytes # (Auto) 1.9, Monocytes # (Auto) 0.7, Eosinophils # (Auto) 0.3, Basophils # (Auto) 0.1 08/16/18 16:05 08/17/18 06:05 Red Blood Count 3.43 L, Mean Corpuscular Volume 94.5, Mean Corpuscular Hemoglobin 31.8, Mean Corpuscular Hemoglobin Concent 33.6, Red Cell Distribution Width 12.4, Calcium Level 8.8 Microbiology Microbiology 08/16/18 Blood Culture, Received Pending 08/16/18 Blood Culture, Received Pending 08/16/18 Gram Stain - Final, Resulted 08/16/18 Wound Culture, Resulted Pending Allergies Coded Allergies: clopidogrel (Verified Allergy, Unknown, 08/16/18) Home Medications Scheduled Amlodipine Besylate (Amlodipine Besylate) 5 Mg Tablet, 5 MG PO DAILY, (Reported) Aspirin (Aspirin EC) 325 Mg Tabec, 650 MG PO QHS for 30 Days, #30 Brimonidine Tartrate/Timolol (Combigan 0.2%-0.5% Eye Drops) 1 Araceli Araceli, 1 DROP OU BID, (Reported) Cholecalciferol (Vitamin D3) (Vitamin D3) 1,000 Unit Tablet, 2,000 UNIT PO DAILY, (Reported) Ferrous Gluconate (Ferrous Gluconate) 324 Mg Tab, 324 MG PO DAILY for 30 Days, #30 Furosemide (Furosemide) 40 Mg Tab, 40 MG PO DAILY for 30 Days, #30 Garlic (Garlic) 500 Mg Tablet, 1,000 MG PO QHS, (Reported) Hydralazine HCl (Hydralazine HCl) 10 Mg Tablet, 10 MG PO BID, (Reported) Insulin Glargine,Hum.rec.anlog (Lantus Solostar) 100 Unit/Ml Inj, 40 UNITS SC DAILY for 30 Days, #15 Levothyroxine Sodium (Levothyroxine Sodium) 50 Mcg Tab, 50 MCG PO DAILY for 30 Days, #30 Magnesium Gluconate (Mag-G) 500 Mg Tab, 250 MG PO DAILY for 30 Days, #30 Pentoxifylline (Pentoxifylline) 400 Mg Tabcr, 400 MG PO DAILY, (Reported) Potassium Chloride (Potassium Chloride) 10 Meq Tab, 10 MEQ PO DAILY for 30 Days, #30 Rosuvastatin Calcium (Rosuvastatin Calcium) 5 Mg Tab, 5 MG PO QHS for 30 Days, #30 Loren Bhatti August 17, 2018 10:06
[2018-08-17 14:00] VITALS: BP 140/52
--- NOTE | 2018-08-17 14:13 | IPNPDOC ---
Date Seen The patient was seen on 08/17/18. Progress Note Subjective 68-year-old white female with history of chronic wound Left pre tib area; she states in the last few weeks she has had a wound of her left heel which is getting worse gradually. She did not receive any antibiotic treatment so far. She was referred by her picking supervisor, Dr. Esquivel, to the ER for further evaluation. she was admitted on 08/16 no events overnight Review of systems no fever no chills no chest pain no cough no abdominal pain no diarrhea PHYSICAL EXAMINATION: GENERAL: She is awake, alert and oriented times three. She is not in acute distress. HEENT: Atraumatic. Pupils are equal, round, and react to light. No jaundice. Extraocular muscles intact. Ears, nose and throat are normal. Mouth: Mucous not dry. NECK: No jugular venous distention (JVD). No bruits. LUNGS: Clear. No wheezing. No crackles. HEART: S1, S2, regular. No murmur. ABDOMEN: Soft. Bowel sounds positive. Nontender. EXTREMITIES: Lower extremities: She has right above-knee amputation (AKA). Left lower extremity chronic wound which is healing well. + infected wound in her left heel with bad smell but no drainage. Assessment and Plans 1. Left heel infected wound, MRI ruled out osteomyelitis appreciated Dr Durbin input she may need debridement will continue IV Vanco/Zosyn will follow wound culture 2. left leg PAD, she need angiogram with Dr Durbin 3. DM T2, will continue insulin, will check A1c 4. left pre tibia cellulitis/chronic wound, on abx A-FIB/CHADSVASC A-FIB History Current/History of A-Fib/PAF?: Yes Current PO Anticoag Therapy: Yes VS, I&O, 24H, Fishbone Vital Signs/I&O Vital Signs Date Time Temp Pulse Resp B/P (MAP) Pulse Ox O2 Delivery O2 Flow Rate FiO2 08/17/18 08:49 158/62 08/17/18 08:48 63 08/17/18 06:00 98.4 20 98 08/16/18 20:10 Room Air I&O- Last 24 Hours up to 6 AM 08/17/18 05:59 Intake Total 820 ml Output Total 600 ml Balance 220 ml Laboratory Data 24H LABS Laboratory Tests 2 08/16/18 16:05: Anion Gap 7L, Glomerular Filtration Rate 51.5, Calcium Level 9.6, Aspartate Amino Transf (AST/SGOT) 9, Alanine Aminotransferase (ALT/SGPT) 10L, Alkaline Phosphatase 59, Total Bilirubin 0.2, Direct Bilirubin < 0.1, C-Reactive Protein, Quantitative 6.50H, Total Protein 7.5, Albumin 3.0L, Albumin/Globulin Ratio 0.67L 08/16/18 18:51: Bedside Glucose (Misc Panel) 85 08/16/18 20:45: Bedside Glucose (Misc Panel) 208H 08/17/18 05:44: Bedside Glucose (Misc Panel) 105 08/17/18 06:05: Nucleated Red Blood Cells % (auto) 0.0, Anion Gap 6L, Glomerular Filtration Rate 43.8L, Blood Urea Nitrogen 23H, Creatinine 1.29, Sodium Level 139, Potassium Level 3.7, Chloride Level 105, Carbon Dioxide Level 28, Calcium Level 8.8 08/17/18 11:26: Bedside Glucose (Misc Panel) 151H 08/17/18 11:55: Vancomycin Level Trough 19.6 CBC/BMP Laboratory Tests 08/16/18 16:05 08/17/18 06:05 Red Blood Count 3.43 L, Mean Corpuscular Volume 94.5, Mean Corpuscular Hemoglobin 31.8, Mean Corpuscular Hemoglobin Concent 33.6, Red Cell Distribution Width 12.4, Calcium Level 8.8 Microbiology Microbiology 08/16/18 Blood Culture - Preliminary, Resulted No growth after 24 hours . All specim... 08/16/18 Blood Culture - Preliminary, Resulted No growth after 24 hours . All specim... 08/16/18 Gram Stain - Final, Resulted 08/16/18 Wound Culture, Resulted Pending DWAIN KAN MD August 17, 2018 14:13
--- NOTE | 2018-08-17 14:52 | PHACANCOPD ---
PHARMACY VANCOMYCIN DOSING Pt Demographics Demographics Patient Age:68 , Weight:103.640 , Gender: female Adjusted Body Weight Date: 08/16/18, Adjusted Body Weight: Kg Events Past 24 Hours Events Past 24 Hours: NO: Dialysis, Diuretic Therapy, Change in CrCl, Fever, Elevation in WBC, Pending Diagnostics, Pending Procedures, Other Vancomycin Vancomycin Target Ranges: 10-20 mcg/ml Vancomycin Load Y/N: Yes Load Dose Date Time Vancomycin Load Dose: 2000mg Date: 08-17 Time: 1200 Vancomycin Dose Date: 08/17/18. Current Vancomycin Dose: [1G IV Q18H] Date: 08/16/18. Current Vancomycin Dose: [1000mg q8h] Intermittent Dosing?: No Labs Labs Item Value Date Time White Blood Count 13.2 10^3/uL H 08/16/18 1241 White Blood Count 11.4 10^3/uL H 08/17/18 0605 C-Reactive Protein, Quantitative 6.50 MG/DL H 08/16/18 1605 Creatinine 1.12 MG/DL 08/16/18 1605 Creatinine 1.29 MG/DL 08/17/18 0605 Vancomycin Level Trough 19.6 UG/ML 08/17/18 1155 Micro Microbiology 08/16/18 Blood Culture - Preliminary, Resulted No growth after 24 hours . All specim... 08/16/18 Blood Culture - Preliminary, Resulted No growth after 24 hours . All specim... 08/16/18 Gram Stain - Final, Resulted 08/16/18 Wound Culture, Resulted Pending Creatinine Clearance Date:08/17/18. Creatinine Clearance: [~37ML/MIN]. Date:08/16/18. Creatinine Clearance: [30-40]. Assessment and Plan Maintaining Current Dose?: Yes Reason for dose change: No Dose Change Pharmacist Note Pharmacist Note Date: 08/17/18. Pharmacist note:Pt received 1g iv 08/16/18 @ 19 in the ED and 1g IV 08/17/18 @05. The trough came back today after two doses @ 19.6mcg/ml at 11:55 am. Dosing will be changed to 1g IV every 18 hours starting today @ 1500. We will continue to monitor and adjust the dose as needed. Date: 08/16/18. Pharmacist note:Will monitor and make adjustments as needed. EDUARD [facility] August 17, 2018 14:52
[2018-08-17 14:58] LABS: HEMOGLOBIN A1c 7.3 %
[2018-08-17] MEDS: PERCOCET 5MG/325MG TAB PO PRN (17:22)
[2018-08-17] MEDS: ASPIRIN ENTERIC 325 MG TAB PO SCH (21:55)
[2018-08-17] MEDS: ROSUVASTATIN 10 MG TAB (CRESTOR) PO SCH (21:55)
[2018-08-17 22:00] VITALS: BP 188/79
[2018-08-18] MEDS: PIPERACILLIN/TAZOBACTAM SOD 3.375 GM in D5W MINI-BAG PLUS 50 ML IV SCH ×2 (04:22→09:36)
[2018-08-18 06:00] VITALS: BP 166/72
[2018-08-18] MEDS: LEVOTHYROXINE 50MCG TABLET (0.05MG) PO SCH (06:06)
[2018-08-18] MEDS: ACETAMINOPHEN TAB 650MG DOSE (2X325MG) PO PRN ×2 (06:06→21:24)
[2018-08-18] MEDS: HumaLOG INSULIN (NovoLOG) PER UNIT SC SCH ×4 (07:30→21:00)
--- NOTE | 2018-08-18 08:57 | IPNPDOC ---
Date Seen The patient was seen on 08/18/18. Progress Note HPI: The patient is a 68-year-old white female who presented to the emergency room (ER) for worsening left heel infection. She has a history of chronic wound Left pre tib area, she states this has been at baseline, has not seen Dr Ch for this issue for several months. She states in the last few weeks she has had a wound of her left heel which is getting worse gradually. She did not receive any antibiotic treatment so far. Today, she went to see her advertising project manager, Dr. Esquivel, and was referred to the ER for further evaluation. The pt was admitted to the Hospitalist service and vascular surgery consulted related to her h/o PVD and LLE heel wound. The pt reports less redness in LLE. Denies any fevers, chills, weakness, fatigue, Headache, Chest Pain, Shortness of breath, cough, palpitations, abdominal pain, N/V/D or changes in bowel or bladder habits. PAST MEDICAL HISTORY: DM 2 Morbid obesity BMI 46.1 Peripheral Vascular disease Chronic right foot wound HLD HTN Hypothyroidism Cataracts CKD. Follows with Dr Hopson. PAST SURGICAL HISTORY: CATARACTS 03/2016 ANGIOPLASTY AND STENT LLE 2009 GALL BLADDER 2009 REVASCULARIZATION RIGHT LEG AUGUST 2017 RIGHT SECOND TOE AMPUTATION AUGUST 2017 Rt AKA 10/12. PE: GEN: 68yoF, appears stated age. No acute distress. Alert and oriented x 3. HEENT: Normocephalic, atraumatic. Conjunctiva without injection. Moist mucous membranes. CHEST: Regular rate and rhythm, +S1, +S2 LUNGS: Clear to auscultation bilaterally. No wheezes, rales, or rhonchi. Breathing appears symmetric and easy. ABD: Round, soft, non-tender, non-distended. +Bowel sounds throughout. EXT: Rt AKA. LLE with pretibial wound noted, approx 4-5 cm diameter black appearing heel wound, no drainage. Less surrounding erythema of pretib area and foot. PT/DP Pulses monophasic with doppler. NEURO: Alert and oriented x 3. No focal deficits appreciated. Left foot MRI 1. Diffuse edema in the subcutaneous tissues of the foot most pronounced along the dorsal and lateral soft tissues of the mid and forefoot. Clinical correlation to exclude infection such as cellulitis suggested. 2. No abnormal marrow space signal demonstrated. No abnormal enhancement in the calcaneus or elsewhere in the osseous structures on post gadolinium imaging to suggest osteomyelitis. Electronically signed by: Albert Emanuel On 08/16/2018 19:20:52 PM A&P: The patient is a 68-year-old white female who presented to the emergency room (ER) for worsening left heel infection. She has a history of chronic wound Left pre tib area, she states this has been at baseline, has not seen Dr Ch for this issue for several months. She states in the last few weeks she has had a wound of her left heel which is getting worse gradually. She did not receive any antibiotic treatment so far. Today, she went to see her advertising project manager, Dr. Esquivel, and was referred to the ER for further evaluation. The pt was admitted to the Hospitalist service and vascular surgery consulted related to her h/o PVD and LLE heel wound. 1. PAD. Reviewed Pt with Dr Durbin, the pt is well known to Dr Durbin. Plan to arrange Angiogram LLE in near future, postponed 08/17/18 related to SCr 1.29 with GFR 43.8 which is slightly worse from the pt's baseline. No labs available this AM, CBC/BMP ordered and pending. Consider Angiogram pending renal function trend. 2. Non heeling Left heel wound. No OM as per MRI. Reviewed with Dr Durbin, plan for debridement of wound 08/19/18. 3. Left foot cellulitis. Mgmt as per Medicine. IV Vanco/Zosyn. BC x 2 neg WC proteus. Sensitive to Zosyn. DVT prophylaxis. SQ Heparin. A-FIB/CHADSVASC A-FIB History Current/History of A-Fib/PAF?: No VS, I&O, 24H, Fishbone Vital Signs/I&O Vital Signs Date Time Temp Pulse Resp B/P (MAP) Pulse Ox O2 Delivery O2 Flow Rate FiO2 08/18/18 06:00 97.6 61 18 166/72 (103) 95 08/16/18 20:10 Room Air I&O- Last 24 Hours up to 6 AM 08/18/18 06:00 Intake Total 1568 ml Output Total 0 ml Balance 1568 ml Laboratory Data 24H LABS Laboratory Tests 2 08/17/18 11:26: Bedside Glucose (Misc Panel) 151H 08/17/18 11:55: Vancomycin Level Trough 19.6 08/17/18 14:22: Estimated Mean Plasma Glucose 163H, Hemoglobin A1c 7.3 08/17/18 16:47: Bedside Glucose (Misc Panel) 114 08/17/18 20:57: Bedside Glucose (Misc Panel) 163H 08/18/18 06:39: Bedside Glucose (Misc Panel) 84 Microbiology Microbiology 08/16/18 Blood Culture - Preliminary, Resulted No growth after 24 hours . All specim... 08/16/18 Blood Culture - Preliminary, Resulted No growth after 24 hours . All specim... 08/16/18 Gram Stain - Final, Resulted 08/16/18 Wound Culture - Preliminary, Resulted Proteus Mirabilis Loren Bhatti August 18, 2018 08:57
[2018-08-18] MEDS: DOCUSATE SODIUM 100 MG CAP PO SCH ×2 (09:00→21:00)
[2018-08-18] MEDS: MAGNESIUM GLUCONATE 500 MG TAB PO SCH (09:00)
[2018-08-18] MEDS: VITAMIN D 1,000 INTERNATIONAL UNITS TABLET PO SCH (09:36)
[2018-08-18] MEDS: BRIMONIDINE 0.15% OPHTH SOLN 5 ML OU SCH ×2 (09:36→21:13)
[2018-08-18] MEDS: HEPARIN SOD (PORCINE) 5000 UNITS/ML VIAL SC SCH ×2 (09:36→21:11)
[2018-08-18] MEDS: TIMOLOL MALEATE 0.5% OPHTH SOLN 5 ML OU SCH ×2 (09:36→21:14)
[2018-08-18] MEDS: FUROSEMIDE 40 MG TAB PO SCH (09:37)
[2018-08-18] MEDS: FERROUS GLUCONATE 324 MG TAB PO SCH (09:37)
[2018-08-18] MEDS: LEVEMIR (INSULIN DETEMIR) 1 UNITS/0.01ML SC SCH (09:37)
[2018-08-18] MEDS: POTASSIUM CHLORIDE 10 MEQ SR TABLET PO SCH (09:37)
[2018-08-18] MEDS: PENTOXIFYLLINE 400 MG TAB PO SCH (09:39)
[2018-08-18] MEDS: **hydrALAZINE** 10 MG TAB PO SCH ×2 (09:39→21:12)
[2018-08-18] MEDS: amLODIPine 5 MG TAB PO SCH (09:39)
[2018-08-18 10:10] LABS: HEMATOCRIT 32.9 % (36.0-47.0); HEMOGLOBIN 11.1 g/dl (12.0-15.5); MEAN CORPUSCULAR HEMOGLOBIN 31.7 pg (27.0-33.0); MEAN CORPUSCULAR HGB CONC 33.7 g/dl (32.0-36.5); PLATELET COUNT, AUTOMATED 301 10^3/uL (150-450); WHITE BLOOD COUNT 12.3 10^3/uL (4.0-10.0)
[2018-08-18 10:32] LABS: CALCIUM LEVEL 8.8 MG/DL (8.8-10.2); CREATININE FOR GFR 1.35 MG/DL (0.55-1.30); GLOMERULAR FILTRATION RATE 41.5 (>45); POTASSIUM SERUM 3.6 MEQ/L (3.5-5.1)
[2018-08-18] MEDS: VANCOMYCIN HCL 1,000 MG, VIAL MATE ADAPTER 1 EACH in D5W 250 ML IV SCH (10:57)
[2018-08-18] MEDS: NS 1,000 ML IV SCH (12:20)
[2018-08-18 14:00] VITALS: BP 177/66
--- NOTE | 2018-08-18 14:41 | IPNPDOC ---
Date Seen The patient was seen on 08/18/18. Progress Note Subjective 68-year-old white female with history of chronic wound Left pre tib area; she states in the last few weeks she has had a wound of her left heel which is getting worse gradually. She did not receive any antibiotic treatment so far. She was referred by her engraver tire mold, Dr. Esquivel, to the ER for further evaluation. she was admitted on 08/16 for left heel infection no events overnight Review of systems no fever no chills no chest pain no cough no abdominal pain no diarrhea PHYSICAL EXAMINATION: GENERAL: She is awake, alert and oriented times three. She is not in acute distress. HEENT: Atraumatic. Pupils are equal, round, and react to light. No jaundice. Extraocular muscles intact. Ears, nose and throat are normal. Mouth: Mucous not dry. NECK: No jugular venous distention (JVD). No bruits. LUNGS: Clear. No wheezing. No crackles. HEART: S1, S2, regular. No murmur. ABDOMEN: Soft. Bowel sounds positive. Nontender. EXTREMITIES: Lower extremities: She has right above-knee amputation (AKA). Left lower extremity chronic wound which is healing well. + infected wound in her left heel with bad smell but no drainage. Assessment and Plans 1. Left heel infected wound, MRI ruled out osteomyelitis wound culture positive for Proteus will discontinue Vancomycin and will change Zosyn to Unasyn Dr Durbin plans to do debridement tomorrow 2. left leg PAD, she need angiogram with Dr Durbin 3. Acute on CKD stage 3, Cr worsening, will hold Lasix and gentle hydrate her 4. DM T2, A1c 7.3% will continue insulin 5. left pre tibia cellulitis/chronic wound, stable VS, I&O, 24H, Fishbone Vital Signs/I&O Vital Signs Date Time Temp Pulse Resp B/P (MAP) Pulse Ox O2 Delivery O2 Flow Rate FiO2 08/18/18 09:39 155/63 08/18/18 09:39 66 08/18/18 06:00 97.6 18 95 08/16/18 20:10 Room Air I&O- Last 24 Hours up to 6 AM 08/18/18 06:00 Intake Total 1568 ml Output Total 0 ml Balance 1568 ml Laboratory Data 24H LABS Laboratory Tests 2 08/17/18 16:47: Bedside Glucose (Misc Panel) 114 08/17/18 20:57: Bedside Glucose (Misc Panel) 163H 08/18/18 06:39: Bedside Glucose (Misc Panel) 84 08/18/18 09:58: Nucleated Red Blood Cells % (auto) 0.0, Anion Gap 9, Glomerular Filtration Rate 41.5L, Blood Urea Nitrogen 20H, Creatinine 1.35H, Sodium Level 141, Potassium Level 3.6, Chloride Level 107, Carbon Dioxide Level 25, Calcium Level 8.8 08/18/18 11:44: Bedside Glucose (Misc Panel) 150H CBC/BMP Laboratory Tests 08/18/18 09:58 Red Blood Count 3.50 L, Mean Corpuscular Volume 94.0, Mean Corpuscular Hemoglobin 31.7, Mean Corpuscular Hemoglobin Concent 33.7, Red Cell Distribution Width 12.6, Calcium Level 8.8 Microbiology Microbiology 08/16/18 Blood Culture - Preliminary, Resulted No Growth after 48 hours. All Specime... 08/16/18 Blood Culture - Preliminary, Resulted No Growth after 48 hours. All Specime... 08/16/18 Gram Stain - Final, Resulted 08/16/18 Wound Culture - Preliminary, Resulted Proteus Mirabilis DWAIN KAN MD August 18, 2018 14:41
[2018-08-18] MEDS: AMPICILLIN SOD/SULBACTAM SOD 3 GM in D5W MINI-BAG PLUS 100 ML IV SCH ×2 (16:24→21:13)
[2018-08-18] MEDS: ASPIRIN ENTERIC 325 MG TAB PO SCH (21:12)
[2018-08-18] MEDS: ROSUVASTATIN 10 MG TAB (CRESTOR) PO SCH (21:12)
[2018-08-18 22:00] VITALS: BP 142/78
[2018-08-19] MEDS: NS 1,000 ML IV SCH ×2 (03:04→16:36)
[2018-08-19] MEDS: AMPICILLIN SOD/SULBACTAM SOD 3 GM in D5W MINI-BAG PLUS 100 ML IV SCH ×4 (04:26→23:35)
[2018-08-19] MEDS: LEVOTHYROXINE 50MCG TABLET (0.05MG) PO SCH (05:58)
[2018-08-19 06:00] VITALS: BP 122/55
[2018-08-19 06:36] LABS: HEMATOCRIT 35.2 % (36.0-47.0); HEMOGLOBIN 11.9 g/dl (12.0-15.5); MEAN CORPUSCULAR HEMOGLOBIN 31.9 pg (27.0-33.0); MEAN CORPUSCULAR HGB CONC 33.8 g/dl (32.0-36.5); MEAN CORPUSCULAR VOLUME 94.4 fl (80.0-96.0); PLATELET COUNT, AUTOMATED 338 10^3/uL (150-450); RED BLOOD COUNT 3.73 10^6/uL (4.00-5.40); WHITE BLOOD COUNT 11.8 10^3/uL (4.0-10.0)
[2018-08-19 07:03] LABS: CALCIUM LEVEL 8.7 MG/DL (8.8-10.2); CREATININE FOR GFR 1.33 MG/DL (0.55-1.30); GLOMERULAR FILTRATION RATE 42.2 (>45); POTASSIUM SERUM 3.3 MEQ/L (3.5-5.1)
[2018-08-19] MEDS: HumaLOG INSULIN (NovoLOG) PER UNIT SC SCH ×4 (07:24→20:21)
[2018-08-19] MEDS: MAGNESIUM GLUCONATE 500 MG TAB PO SCH (09:00)
[2018-08-19] MEDS: DOCUSATE SODIUM 100 MG CAP PO SCH ×2 (09:00→20:21)
[2018-08-19] MEDS: PENTOXIFYLLINE 400 MG TAB PO SCH (09:30)
[2018-08-19] MEDS: VITAMIN D 1,000 INTERNATIONAL UNITS TABLET PO SCH (09:30)
[2018-08-19] MEDS: FERROUS GLUCONATE 324 MG TAB PO SCH (09:30)
[2018-08-19] MEDS: POTASSIUM CHLORIDE 10 MEQ SR TABLET PO SCH (09:31)
[2018-08-19] MEDS: HEPARIN SOD (PORCINE) 5000 UNITS/ML VIAL SC SCH ×2 (09:31→20:20)
[2018-08-19] MEDS: BRIMONIDINE 0.15% OPHTH SOLN 5 ML OU SCH ×2 (09:32→20:22)
[2018-08-19] MEDS: TIMOLOL MALEATE 0.5% OPHTH SOLN 5 ML OU SCH ×2 (09:32→20:22)
[2018-08-19] MEDS: LEVEMIR (INSULIN DETEMIR) 1 UNITS/0.01ML SC SCH (09:32)
[2018-08-19] MEDS: **hydrALAZINE** 10 MG TAB PO SCH ×2 (09:43→20:20)
--- NOTE | 2018-08-19 10:45 | IPNPDOC ---
Date Seen The patient was seen on 08/19/18. Progress Note Subjective 68-year-old white female with history of chronic wound Left pre tib area; she states in the last few weeks she has had a wound of her left heel which is getting worse gradually. She did not receive any antibiotic treatment so far. She was referred by her band straightener, Dr. Esquivel, to the ER for further evaluation. she was admitted on 08/16 for left heel infection no events overnight Review of systems no fever no chills no chest pain no cough no abdominal pain no diarrhea PHYSICAL EXAMINATION: GENERAL: She is awake, alert and oriented times three. She is not in acute distress. HEENT: Atraumatic. Pupils are equal, round, and react to light. No jaundice. Extraocular muscles intact. Ears, nose and throat are normal. Mouth: Mucous not dry. NECK: No jugular venous distention (JVD). No bruits. LUNGS: Clear. No wheezing. No crackles. HEART: S1, S2, regular. No murmur. ABDOMEN: Soft. Bowel sounds positive. Nontender. EXTREMITIES: Lower extremities: She has right above-knee amputation (AKA). Left lower extremity chronic wound which is healing well. + infected wound in her left heel with bad smell but no drainage. Assessment and Plans 1. Left heel infected wound, MRI ruled out osteomyelitis wound culture positive for Proteus will continue IV Unasyn; Dr Durbin plans to do debridement today 2. left leg PAD, angiogram with Dr Durbin is delayed due to increased Cr 3. Acute on CKD stage 3, will continue to hold Lasix and gentle hydrate her and follow Cr 4. DM T2, A1c 7.3% will continue insulin 5. left pre tibia cellulitis/chronic wound, stable VS, I&O, 24H, Fishbone Vital Signs/I&O Vital Signs Date Time Temp Pulse Resp B/P (MAP) Pulse Ox O2 Delivery O2 Flow Rate FiO2 08/19/18 09:43 180/59 08/19/18 06:00 97.8 64 17 99 08/16/18 20:10 Room Air I&O- Last 24 Hours up to 6 AM 08/19/18 06:00 Intake Total 2955.5 ml Output Total 1025 ml Balance 1930.5 ml Laboratory Data 24H LABS Laboratory Tests 2 08/18/18 11:44: Bedside Glucose (Misc Panel) 150H 08/18/18 16:41: Bedside Glucose (Misc Panel) 98 08/18/18 20:08: Bedside Glucose (Misc Panel) 116H 08/19/18 06:16: Nucleated Red Blood Cells % (auto) 0.0, Anion Gap 9, Glomerular Filtration Rate 42.2L, Blood Urea Nitrogen 18, Creatinine 1.33H, Sodium Level 142, Potassium Level 3.3L, Chloride Level 108H, Carbon Dioxide Level 25, Calcium Level 8.7L CBC/BMP Laboratory Tests 08/19/18 06:16 Red Blood Count 3.73 L, Mean Corpuscular Volume 94.4, Mean Corpuscular Hemoglobin 31.9, Mean Corpuscular Hemoglobin Concent 33.8, Red Cell Distribution Width 12.5, Calcium Level 8.7 L Microbiology Microbiology 08/16/18 Blood Culture - Preliminary, Resulted No Growth after 48 hours. All Specime... 08/16/18 Blood Culture - Preliminary, Resulted No Growth after 48 hours. All Specime... 08/16/18 Gram Stain - Final, Resulted 08/16/18 Wound Culture - Preliminary, Resulted Proteus Mirabilis DWAIN KAN MD August 19, 2018 10:45
[2018-08-19 14:00] VITALS: BP 140/72
[2018-08-19] MEDS: ACETAMINOPHEN TAB 650MG DOSE (2X325MG) PO PRN (18:12)
[2018-08-19] MEDS: ASPIRIN ENTERIC 325 MG TAB PO SCH (20:20)
[2018-08-19] MEDS: ROSUVASTATIN 10 MG TAB (CRESTOR) PO SCH (20:21)
[2018-08-19 22:00] VITALS: BP 140/58
[2018-08-20] VITALS (11 sets, daily range): BP systolic 141–160; BP diastolic 60–79
[2018-08-20] MEDS: AMPICILLIN SOD/SULBACTAM SOD 3 GM in D5W MINI-BAG PLUS 100 ML IV SCH ×4 (04:09→21:35)
[2018-08-20] MEDS ORDERED: MORPHINE 4 MG/ML 1ML VIAL/SYRINGE (J2270) IV ONE (04:30)
[2018-08-20] MEDS: LEVOTHYROXINE 50MCG TABLET (0.05MG) PO SCH (05:18)
[2018-08-20 07:03] LABS: CALCIUM LEVEL 8.6 MG/DL (8.8-10.2); CREATININE FOR GFR 1.28 MG/DL (0.55-1.30); GLOMERULAR FILTRATION RATE 44.1 (>45); POTASSIUM SERUM 3.5 MEQ/L (3.5-5.1)
[2018-08-20] MEDS: HumaLOG INSULIN (NovoLOG) PER UNIT SC SCH ×4 (07:30→21:00)
[2018-08-20] MEDS: MAGNESIUM GLUCONATE 500 MG TAB PO SCH (07:43)
[2018-08-20] MEDS: FERROUS GLUCONATE 324 MG TAB PO SCH (07:43)
[2018-08-20] MEDS: DOCUSATE SODIUM 100 MG CAP PO SCH ×2 (07:43→21:00)
[2018-08-20] MEDS: HEPARIN SOD (PORCINE) 5000 UNITS/ML VIAL SC SCH ×2 (07:44→21:36)
[2018-08-20] MEDS: LEVEMIR (INSULIN DETEMIR) 1 UNITS/0.01ML SC SCH ×2 (07:44→11:16)
[2018-08-20] MEDS: VITAMIN D 1,000 INTERNATIONAL UNITS TABLET PO SCH (07:45)
[2018-08-20] MEDS ORDERED: BUPIVACAINE HCL 0.5% 10 ML VIAL As Ordered ONE (07:52)
[2018-08-20] MEDS ORDERED: LIDOCAINE 1% MDV 20ML VIAL As Ordered ONE (07:52)
[2018-08-20] MEDS ORDERED: propofoL 200 MG/20 ML VIAL As Ordered ONE (08:51)
[2018-08-20] MEDS ORDERED: LIDOCAINE 2% INJ 100 MG/5 ML SDV (FOR ANES.) As Ordered ONE (08:51)
[2018-08-20] MEDS ORDERED: ONDANSETRON 4MG/2ML VIAL (J2405) As Ordered ONE (08:51)
[2018-08-20] MEDS ORDERED: MIDAZOLAM INJ 2 MG/2 ML VIAL (J2250) As Ordered ONE (08:51)
[2018-08-20] MEDS ORDERED: KETAMINE HCL 200 MG/20 ML VIAL As Ordered ONE (08:52)
[2018-08-20] MEDS ORDERED: fentaNYL 100 MCG/2 ML INJECTION (J3010) As Ordered ONE (08:54)
[2018-08-20] MEDS: NS 1,000 ML IV SCH ×3 (09:19→21:37)
[2018-08-20] MEDS: **hydrALAZINE** 10 MG TAB PO SCH ×2 (10:11→21:36)
[2018-08-20] MEDS: POTASSIUM CHLORIDE 10 MEQ SR TABLET PO SCH (10:12)
[2018-08-20] MEDS: BRIMONIDINE 0.15% OPHTH SOLN 5 ML OU SCH ×2 (10:13→21:37)
[2018-08-20] MEDS: TIMOLOL MALEATE 0.5% OPHTH SOLN 5 ML OU SCH ×2 (10:13→21:37)
[2018-08-20] MEDS: PENTOXIFYLLINE 400 MG TAB PO SCH (11:15)
--- NOTE | 2018-08-20 11:33 | IPNPDOC ---
Date Seen The patient was seen on 08/20/18. Progress Note Subjective 68-year-old white female with history of chronic wound Left pre tib area; she states in the last few weeks she has had a wound of her left heel which is getting worse gradually. She did not receive any antibiotic treatment so far. She was referred by her roving can tender, Dr. Esquivel, to the ER for further evaluation. she was admitted on 08/16 for left heel infection she was treated with IV abx she underwent for left heel wound debridement today Review of systems no fever no chills no chest pain no cough no abdominal pain no diarrhea PHYSICAL EXAMINATION: GENERAL: She is awake, alert and oriented times three. She is not in acute distress. HEENT: Atraumatic. Pupils are equal, round, and react to light. No jaundice. Extraocular muscles intact. Ears, nose and throat are normal. Mouth: Mucous not dry. NECK: No jugular venous distention (JVD). No bruits. LUNGS: Clear. No wheezing. No crackles. HEART: S1, S2, regular. No murmur. ABDOMEN: Soft. Bowel sounds positive. Nontender. EXTREMITIES: Lower extremities: She has right above-knee amputation (AKA). Left lower extremity chronic wound which is healing well. + infected wound in her left heel with bad smell but no drainage. Assessment and Plans 1. Left heel infected wound, MRI ruled out osteomyelitis wound culture positive for Proteus will continue IV Unasyn; she underwent for debridement today 2. left leg PAD, angiogram with Dr Durbin is delayed due to increased Cr 3. Acute on CKD stage 3, will continue to hold Lasix and gentle hydrate her and follow Cr 4. DM T2, A1c 7.3% will continue insulin 5. left pre tibia cellulitis/chronic wound, stable VS, I&O, 24H, Fishbone Vital Signs/I&O Vital Signs Date Time Temp Pulse Resp B/P (MAP) Pulse Ox O2 Delivery O2 Flow Rate FiO2 08/20/18 11:05 98.7 62 16 145/60 (88) 94 08/16/18 20:10 Room Air I&O- Last 24 Hours up to 6 AM 08/20/18 06:00 Intake Total 1733 ml Balance 1733 ml Laboratory Data 24H LABS Laboratory Tests 2 08/19/18 12:00: Bedside Glucose (Misc Panel) 157H 08/19/18 16:59: Bedside Glucose (Misc Panel) 105 08/19/18 20:09: Bedside Glucose (Misc Panel) 176H 08/20/18 05:43: Bedside Glucose (Misc Panel) 98 08/20/18 06:17: Anion Gap 7L, Glomerular Filtration Rate 44.1L, Blood Urea Nitrogen 18, Creatinine 1.28, Sodium Level 144, Potassium Level 3.5, Chloride Level 111H, Carbon Dioxide Level 26, Calcium Level 8.6L CBC/BMP Laboratory Tests 08/20/18 06:17 Calcium Level 8.6 L Microbiology Microbiology 08/16/18 Blood Culture - Preliminary, Resulted No Growth after 72 hours. All specime... 08/16/18 Blood Culture - Preliminary, Resulted No Growth after 72 hours. All specime... 08/20/18 Gram Stain, Received Pending 08/20/18 Wound Culture, Received Pending 08/20/18 Anaerobic Culture, Received Pending 08/16/18 Gram Stain - Final, Complete 08/16/18 Wound Culture - Final, Complete Proteus Mirabilis Staphylococcus Sp Coag DWAIN Benavides MD August 20, 2018 11:33
[2018-08-20] MEDS: ROSUVASTATIN 10 MG TAB (CRESTOR) PO SCH (21:35)
[2018-08-20] MEDS: ASPIRIN ENTERIC 325 MG TAB PO SCH (21:35)
[2018-08-21] MEDS: PERCOCET 5MG/325MG TAB PO PRN ×5 (00:16→18:14)
[2018-08-21 02:00] VITALS: BP 149/64
[2018-08-21] MEDS: AMPICILLIN SOD/SULBACTAM SOD 3 GM in D5W MINI-BAG PLUS 100 ML IV SCH ×2 (03:31→09:50)
[2018-08-21] MEDS: LEVOTHYROXINE 50MCG TABLET (0.05MG) PO SCH (05:32)
[2018-08-21 06:00] VITALS: BP 144/58
[2018-08-21] MEDS: HumaLOG INSULIN (NovoLOG) PER UNIT SC SCH ×4 (07:30→20:32)
[2018-08-21] MEDS: PENTOXIFYLLINE 400 MG TAB PO SCH (09:49)
[2018-08-21] MEDS: MAGNESIUM GLUCONATE 500 MG TAB PO SCH (09:49)
[2018-08-21] MEDS: VITAMIN D 1,000 INTERNATIONAL UNITS TABLET PO SCH (09:49)
[2018-08-21] MEDS: POTASSIUM CHLORIDE 10 MEQ SR TABLET PO SCH (09:49)
[2018-08-21] MEDS: DOCUSATE SODIUM 100 MG CAP PO SCH ×2 (09:49→21:00)
[2018-08-21] MEDS: BRIMONIDINE 0.15% OPHTH SOLN 5 ML OU SCH ×2 (09:50→20:42)
[2018-08-21] MEDS: TIMOLOL MALEATE 0.5% OPHTH SOLN 5 ML OU SCH ×2 (09:50→20:42)
[2018-08-21] MEDS: FERROUS GLUCONATE 324 MG TAB PO SCH (09:50)
[2018-08-21] MEDS: HEPARIN SOD (PORCINE) 5000 UNITS/ML VIAL SC SCH ×2 (09:51→20:41)
[2018-08-21] MEDS: LEVEMIR (INSULIN DETEMIR) 1 UNITS/0.01ML SC SCH (09:51)
--- NOTE | 2018-08-21 09:52 | IPNPDOC ---
Date Seen The patient was seen on 08/21/18. Progress Note Subjective 68-year-old white female with history of chronic wound in Left pre tib area; she states in the last few weeks she has had a wound of her left heel which is getting worse gradually. She did not receive any antibiotic treatment so far. She was referred by her auxiliary plant operator, Dr. Esquivel, to the ER for further evaluation. she was admitted on 08/16 for left heel infection she was treated with IV abx she underwent for left heel wound debridement with Dr Durbin on 08/20 no events overnight Review of systems no fever no chills no chest pain no cough no abdominal pain no diarrhea PHYSICAL EXAMINATION: GENERAL: She is awake, alert and oriented times three. She is not in acute distress. HEENT: Atraumatic. Pupils are equal, round, and react to light. No jaundice. Extraocular muscles intact. Ears, nose and throat are normal. Mouth: Mucous not dry. NECK: No jugular venous distention (JVD). No bruits. LUNGS: Clear. No wheezing. No crackles. HEART: S1, S2, regular. No murmur. ABDOMEN: Soft. Bowel sounds positive. Nontender. EXTREMITIES: Lower extremities: She has right above-knee amputation (AKA). Left lower extremity chronic wound which is healing well. left heel wound is wrapped and not examined. Assessment and Plans 1. Left heel infected wound, MRI ruled out osteomyelitis wound culture positive for Proteus and staph sp day #1 s/p debridement will change abx to oral Augmentin (Proteus) and Doxy (staph sp) 2. left leg PAD, angiogram with Dr Durbin is delayed due to increased Cr 3. Acute on CKD stage 3, will continue to hold Lasix and gentle hydrate her and follow Cr 4. DM T2, A1c 7.3% will continue insulin 5. left pre tibia cellulitis/chronic wound, stable 6. Dispo: please discuss with Dr Durbin, if no angiography, she may go home with oral abx and follow him in the office VS, I&O, 24H, Fishbone Vital Signs/I&O Vital Signs Date Time Temp Pulse Resp B/P (MAP) Pulse Ox O2 Delivery O2 Flow Rate FiO2 08/21/18 06:12 18 08/21/18 06:00 97.4 54 144/58 (86) 92 08/16/18 20:10 Room Air I&O- Last 24 Hours up to 6 AM 08/21/18 06:00 Intake Total 1435.0 ml Output Total 475 ml Balance 960.0 ml Laboratory Data 24H LABS Laboratory Tests 2 08/20/18 11:54: Bedside Glucose (Misc Panel) 89 08/20/18 16:46: Bedside Glucose (Misc Panel) 107 08/20/18 20:37: Bedside Glucose (Misc Panel) 125H 08/21/18 06:48: Bedside Glucose (Misc Panel) 86 Microbiology Microbiology 08/16/18 Blood Culture - Preliminary, Resulted No Growth after 72 hours. All specime... 08/16/18 Blood Culture - Preliminary, Resulted No Growth after 72 hours. All specime... 08/20/18 Gram Stain - Final, Resulted 08/20/18 Wound Culture, Resulted Pending 08/20/18 Anaerobic Culture, Resulted Pending 08/16/18 Gram Stain - Final, Complete 08/16/18 Wound Culture - Final, Complete Proteus Mirabilis Staphylococcus Sp Coag Neg DWAIN KAN MD August 21, 2018 09:52
[2018-08-21] MEDS: **hydrALAZINE** 10 MG TAB PO SCH ×2 (09:53→20:42)
[2018-08-21] MEDS: DOXYCYCLINE HYCLATE 100 MG TAB PO SCH ×2 (10:04→20:42)
[2018-08-21 14:00] VITALS: BP 138/71
[2018-08-21] MEDS: NS 1,000 ML IV SCH (18:54)
[2018-08-21] MEDS ORDERED: FUROSEMIDE 40 MG/4 ML VIAL (J1940) IV ONE (20:15)
[2018-08-21] MEDS: AUGMENTIN 500 MG TAB PO SCH (20:41)
[2018-08-21] MEDS: ROSUVASTATIN 10 MG TAB (CRESTOR) PO SCH (20:42)
[2018-08-21] MEDS: ASPIRIN ENTERIC 325 MG TAB PO SCH (20:42)
--- NOTE | 2018-08-21 21:27 | REPVR ---
EXAM: XR Chest, 1 View EXAM DATE/TIME: 08/21/2018 8:39 PM CLINICAL HISTORY: 68 years old, female; Signs and symptoms; Shortness of breath; Additional info: Low saturation TECHNIQUE: Imaging protocol: XR of the chest, 1 view. COMPARISON: CR Chest, 2 view PA, Lat 10/11/2017 12:05 PM FINDINGS: Lungs: There is streaky increased density in the left infrahilar region suspicious for atelectasis and infiltrate. Pleural space: There is no evidence of pneumothorax. There is no evidence of pleural effusion. Heart/Mediastinum: There is mild prominence of the left side of the heart. Vasculature: There is mild prominence of the vascular markings suspicious for mild congestive changes. Bones/joints: There is no evidence of bony abnormality. IMPRESSION: 1. Streaky atelectasis infiltrate left infrahilar region. 2. Suspect mild congestive changes. Electronically signed by: Trung Smith On 08/21/2018 21:27:15 PM
[2018-08-21 22:00] VITALS: BP 140/78
[2018-08-22] MEDS: LEVOTHYROXINE 50MCG TABLET (0.05MG) PO SCH (05:52)
[2018-08-22 06:00] VITALS: BP 130/60
[2018-08-22 06:47] LABS: CALCIUM LEVEL 8.7 MG/DL (8.8-10.2); CREATININE FOR GFR 1.79 MG/DL (0.55-1.30); POTASSIUM SERUM 3.6 MEQ/L (3.5-5.1)
[2018-08-22] MEDS: HumaLOG INSULIN (NovoLOG) PER UNIT SC SCH ×4 (07:30→21:00)
[2018-08-22] MEDS: LEVEMIR (INSULIN DETEMIR) 1 UNITS/0.01ML SC SCH (09:00)
[2018-08-22] MEDS: POTASSIUM CHLORIDE 10 MEQ SR TABLET PO SCH (09:00)
[2018-08-22] MEDS: PENTOXIFYLLINE 400 MG TAB PO SCH (10:00)
[2018-08-22] MEDS: AUGMENTIN 500 MG TAB PO SCH ×2 (10:00→21:53)
[2018-08-22] MEDS: HEPARIN SOD (PORCINE) 5000 UNITS/ML VIAL SC SCH ×2 (10:00→21:52)
[2018-08-22] MEDS: FERROUS GLUCONATE 324 MG TAB PO SCH (10:01)
[2018-08-22] MEDS: DOXYCYCLINE HYCLATE 100 MG TAB PO SCH ×2 (10:01→21:52)
[2018-08-22] MEDS: DOCUSATE SODIUM 100 MG CAP PO SCH ×2 (10:01→21:00)
[2018-08-22] MEDS: **hydrALAZINE** 10 MG TAB PO SCH ×2 (10:01→21:53)
[2018-08-22] MEDS: BRIMONIDINE 0.15% OPHTH SOLN 5 ML OU SCH ×2 (10:02→21:53)
[2018-08-22] MEDS: VITAMIN D 1,000 INTERNATIONAL UNITS TABLET PO SCH (10:02)
[2018-08-22] MEDS: MAGNESIUM GLUCONATE 500 MG TAB PO SCH (10:02)
[2018-08-22] MEDS: TIMOLOL MALEATE 0.5% OPHTH SOLN 5 ML OU SCH ×2 (10:03→21:53)
--- NOTE | 2018-08-22 10:23 | IPNPDOC ---
Date Seen The patient was seen on 08/22/18. Progress Note HPI: The patient is a 68-year-old white female who presented to the emergency room (ER) for worsening left heel infection. She has a history of chronic wound Left pre tib area, she states this has been at baseline, has not seen Dr Ch for this issue for several months. She states in the last few weeks she has had a wound of her left heel which is getting worse gradually. The pt was admitted to the Hospitalist service and vascular surgery consulted related to her h/o PVD and LLE heel wound. The pt is s/p Left heel wound debridement as per Dr Durbin 08/20/18. Denies any fevers, chills, weakness, fatigue, Headache, Chest Pain, Shortness of breath, cough, palpitations, abdominal pain, N/V/D or changes in bowel or bladder habits. PAST MEDICAL HISTORY: DM 2 Morbid obesity BMI 46.1 Peripheral Vascular disease Chronic right foot wound HLD HTN Hypothyroidism Cataracts CKD. Follows with Dr Hopson. PAST SURGICAL HISTORY: CATARACTS 03/2016 ANGIOPLASTY AND STENT LLE 2009 GALL BLADDER 2008 REVASCULARIZATION RIGHT LEG AUGUST 2017 RIGHT SECOND TOE AMPUTATION AUGUST 2017 Rt AKA 10/12. PE: GEN: 68yoF, appears stated age. Alert and oriented x 3. HEENT: Normocephalic, atraumatic. Conjunctiva without injection. Moist mucous membranes. CHEST: Regular rate and rhythm, +S1, +S2 LUNGS: Clear to auscultation bilaterally. No wheezes, rales, or rhonchi. Breathing appears symmetric and easy. ABD: Round, soft, non-tender, non-distended. +Bowel sounds throughout. EXT: Rt AKA. LLE with pretibial wound noted, Left foot is bandaged. NEURO: Alert and oriented x 3. No focal deficits appreciated. Left foot MRI 1. Diffuse edema in the subcutaneous tissues of the foot most pronounced along the dorsal and lateral soft tissues of the mid and forefoot. Clinical correlation to exclude infection such as cellulitis suggested. 2. No abnormal marrow space signal demonstrated. No abnormal enhancement in the calcaneus or elsewhere in the osseous structures on post gadolinium imaging to suggest osteomyelitis. Electronically signed by: Albert Castellanos On 08/16/2018 19:20:52 PM A&P: The patient is a 68-year-old white female who presented to the emergency room (ER) for worsening left heel infection. She has a history of chronic wound Left pre tib area, she states this has been at baseline, has not seen Dr Ch for this issue for several months. She states in the last few weeks she has had a wound of her left heel which is getting worse gradually. The pt was admitted to the Hospitalist service and vascular surgery consulted related to her h/o PVD and LLE heel wound. 1. PAD. Reviewed Pt with Dr Durbin, the pt is well known to Dr Durbin. Plan to arrange Angiogram LLE in near future however this remains on hold related to the pt's renal function. SCr this am 1.79. Consider Angiogram pending renal function trend. 2. Non heeling Left heel wound. S/P debridement as per Dr Durbin 08/20/18. No OM as per MRI. WC 08/20/[address] Durbin, plan for wound care with Dakin yao Wet to dry Q8hrs. Monitor. 3. Left foot cellulitis. Mgmt as per Medicine. S/P IV Vanco/Zosyn, now po Augmentin/Doxy. BC x 2 neg WC proteus. DVT prophylaxis. SQ Heparin. VS, I&O, 24H, Fishbone Vital Signs/I&O Vital Signs Date Time Temp Pulse Resp B/P (MAP) Pulse Ox O2 Delivery O2 Flow Rate FiO2 08/22/18 10:01 132/64 08/22/18 06:00 97.0 60 17 93 1.0 08/16/18 20:10 Room Air I&O- Last 24 Hours up to 6 AM 08/22/18 06:00 Intake Total 790 ml Output Total 425 ml Balance 365 ml Laboratory Data 24H LABS Laboratory Tests 2 08/21/18 11:46: Bedside Glucose (Misc Panel) 152H 08/21/18 16:52: Bedside Glucose (Misc Panel) 175H 08/21/18 20:30: Bedside Glucose (Misc Panel) 160H 08/22/18 05:43: Anion Gap 11, Glomerular Filtration Rate 30.0L, Blood Urea Nitrogen 25H, Creatinine 1.79H, Sodium Level 144, Potassium Level 3.6, Chloride Level 112H, Carbon Dioxide Level 21, Calcium Level 8.7L CBC/BMP Laboratory Tests 08/22/18 05:43 Calcium Level 8.7 L Microbiology Microbiology 08/16/18 Blood Culture - Final, Complete NO GROWTH AFTER 5 DAYS 08/16/18 Blood Culture - Final, Complete NO GROWTH AFTER 5 DAYS 08/20/18 Gram Stain - Final, Resulted 08/20/18 Wound Culture - Final, Resulted Proteus Mirabilis 08/20/18 Anaerobic Culture, Resulted Pending 08/16/18 Gram Stain - Final, Complete 08/16/18 Wound Culture - Final, Complete Proteus Mirabilis Staphylococcus Sp Coag Neg Loren Bhatti August 22, 2018 10:23
--- NOTE | 2018-08-22 13:08 | IPNPDOC ---
Text Note Date of Service The patient was seen on 08/22/18. NOTE Subjective: Patient seen and examined at bedside. No acute overnight events. Patient has no new medical complaints this morning Objective: GENERAL: NAD, lying comfortably in bed HEENT: NC/AT, PERRL, EOMI NECK: No jugular venous distention (JVD). No bruits. LUNGS: Clear. No wheezing. No crackles. HEART: +S1S2, regular. No murmur. ABDOMEN: Soft. Bowel sounds positive. Nontender. EXTREMITIES: right AKA; LLE chronic wound A/P: #Left heel infected wound, MRI ruled out osteomyelitis - wound culture positive for Proteus and staph sp - day #2 s/p debridement - continue Augmentin (Proteus) and Doxy (staph sp) #left leg PAD angiogram with Dr Durbin is delayed due to increased Cr #Acute on CKD stage 3 - hold Lasix and gentle hydration - follow Cr # DM T2, A1c 7.3% will continue insulin #left pre tibia cellulitis/chronic wound, stable VS,Fishbone, I+O VS, Fishbone, I+O Laboratory Tests 08/22/18 05:43 Calcium Level 8.7 L Vital Signs Date Time Temp Pulse Resp B/P (MAP) Pulse Ox O2 Delivery O2 Flow Rate FiO2 08/22/18 10:01 132/64 08/22/18 06:00 97.0 60 17 93 1.0 08/16/18 20:10 Room Air I&O- Last 24 Hours up to 6 AM 08/22/18 06:00 Intake Total 790 ml Output Total 425 ml Balance 365 ml NERISSA HUGGINS MD August 22, 2018 13:08
[2018-08-22 14:00] VITALS: BP 142/82
[2018-08-22] MEDS: ASPIRIN ENTERIC 325 MG TAB PO SCH (21:52)
[2018-08-22] MEDS: ROSUVASTATIN 10 MG TAB (CRESTOR) PO SCH (21:53)
[2018-08-22 22:00] VITALS: BP 136/68
[2018-08-23] MEDS: DAKIN'S 0.25% HALF-STRENGTH SOLN 480 ML TOP SCH ×3 (05:10→20:55)
[2018-08-23] MEDS: LEVOTHYROXINE 50MCG TABLET (0.05MG) PO SCH (05:22)
[2018-08-23 06:00] VITALS: BP 130/60
[2018-08-23] MEDS: HumaLOG INSULIN (NovoLOG) PER UNIT SC SCH ×4 (07:30→20:43)
[2018-08-23 08:03] LABS: HEMATOCRIT 28.2 % (36.0-47.0); HEMOGLOBIN 9.7 g/dl (12.0-15.5); MEAN CORPUSCULAR HEMOGLOBIN 32.3 pg (27.0-33.0); MEAN CORPUSCULAR HGB CONC 34.4 g/dl (32.0-36.5); PLATELET COUNT, AUTOMATED 248 10^3/uL (150-450); WHITE BLOOD COUNT 10.6 10^3/uL (4.0-10.0)
[2018-08-23 08:30] LABS: ALBUMIN 2.2 GM/DL (3.2-5.2); BILIRUBIN,TOTAL 0.3 MG/DL (0.2-1.0); CALCIUM LEVEL 8.9 MG/DL (8.8-10.2); CREATININE FOR GFR 1.44 MG/DL (0.55-1.30); GLOMERULAR FILTRATION RATE 38.5 (>45); POTASSIUM SERUM 3.7 MEQ/L (3.5-5.1); TOTAL PROTEIN 6.3 GM/DL (6.4-8.2)
[2018-08-23] MEDS: LEVEMIR (INSULIN DETEMIR) 1 UNITS/0.01ML SC SCH (09:00)
[2018-08-23] MEDS: DOCUSATE SODIUM 100 MG CAP PO SCH ×2 (09:00→20:54)
[2018-08-23] MEDS: DOXYCYCLINE HYCLATE 100 MG TAB PO SCH ×2 (09:25→20:53)
[2018-08-23] MEDS: HEPARIN SOD (PORCINE) 5000 UNITS/ML VIAL SC SCH ×2 (09:25→20:54)
[2018-08-23] MEDS: AUGMENTIN 500 MG TAB PO SCH ×2 (09:25→20:52)
[2018-08-23] MEDS: **hydrALAZINE** 10 MG TAB PO SCH ×2 (09:25→20:53)
[2018-08-23] MEDS: POTASSIUM CHLORIDE 10 MEQ SR TABLET PO SCH (09:25)
[2018-08-23] MEDS: FERROUS GLUCONATE 324 MG TAB PO SCH (09:26)
[2018-08-23] MEDS: VITAMIN D 1,000 INTERNATIONAL UNITS TABLET PO SCH (09:26)
[2018-08-23] MEDS: PENTOXIFYLLINE 400 MG TAB PO SCH (09:26)
[2018-08-23] MEDS: MAGNESIUM GLUCONATE 500 MG TAB PO SCH (09:26)
[2018-08-23] MEDS: TIMOLOL MALEATE 0.5% OPHTH SOLN 5 ML OU SCH ×2 (09:27→20:54)
[2018-08-23] MEDS: BRIMONIDINE 0.15% OPHTH SOLN 5 ML OU SCH ×2 (09:27→20:54)
--- NOTE | 2018-08-23 11:56 | IPNPDOC ---
Date Seen The patient was seen on 08/23/18. Progress Note HPI: The patient is a 68-year-old white female who presented to the emergency room (ER) for worsening left heel infection. She has a history of chronic wound Left pre tib area, she states this has been at baseline, has not seen Dr Ch for this issue for several months. She states in the last few weeks she has had a wound of her left heel which is getting worse gradually. The pt was admitted to the Hospitalist service and vascular surgery consulted related to her h/o PVD and LLE heel wound. The pt is s/p Left heel wound debridement as per Dr Durbin 08/20/18. Denies any fevers, chills, weakness, fatigue, Headache, Chest Pain, Shortness of breath, cough, palpitations, abdominal pain, N/V/D or changes in bowel or bladder habits. PAST MEDICAL HISTORY: DM 2 Morbid obesity BMI 46.1 Peripheral Vascular disease Chronic right foot wound HLD HTN Hypothyroidism Cataracts CKD. Follows with Dr Hopson. PAST SURGICAL HISTORY: CATARACTS 03/2016 ANGIOPLASTY AND STENT LLE 2009 GALL BLADDER 2008 REVASCULARIZATION RIGHT LEG AUGUST 2017 RIGHT SECOND TOE AMPUTATION AUGUST 2017 Rt AKA 10/12. PE: GEN: 68yoF, appears stated age. Alert and oriented x 3. HEENT: Normocephalic, atraumatic. Conjunctiva without injection. Moist mucous membranes. CHEST: Regular rate and rhythm, +S1, +S2 LUNGS: Clear to auscultation bilaterally. No wheezes, rales, or rhonchi. Breathing appears symmetric and easy. ABD: Round, soft, non-tender, non-distended. +Bowel sounds throughout. EXT: Rt AKA. LLE with pretibial wound noted, Left foot is bandaged. NEURO: Alert and oriented x 3. No focal deficits appreciated. Left foot MRI 1. Diffuse edema in the subcutaneous tissues of the foot most pronounced along the dorsal and lateral soft tissues of the mid and forefoot. Clinical correlation to exclude infection such as cellulitis suggested. 2. No abnormal marrow space signal demonstrated. No abnormal enhancement in the calcaneus or elsewhere in the osseous structures on post gadolinium imaging to suggest osteomyelitis. Electronically signed by: Albert Castellanos On 08/16/2018 19:20:52 PM A&P: The patient is a 68-year-old white female who presented to the emergency room (ER) for worsening left heel infection. She has a history of chronic wound Left pre tib area, she states this has been at baseline, has not seen Dr Ch for this issue for several months. She states in the last few weeks she has had a wound of her left heel which is getting worse gradually. The pt was admitted to the Hospitalist service and vascular surgery consulted related to her h/o PVD and LLE heel wound. 1. PAD. Reviewed Pt with Dr Durbin, the pt is well known to Dr Durbin. Plan to arrange Angiogram LLE in near future however this remains on hold related to the pt's renal function. SCr this am 1.44, downtrending. Consider Angiogram pending renal function trend. 2. Non heeling Left heel wound. S/P debridement as per Dr Durbin 08/20/18. No OM as per MRI. WC 08/20/18 Proteus. Contnue wound care with Dakin yao Wet to dry Q8hrs. Monitor. 3. Left foot cellulitis. Mgmt as per Medicine. S/P IV Vanco/Zosyn, now po Augmentin/Doxy. BC x 2 neg WC proteus/staph. DVT prophylaxis. SQ Heparin. VS, I&O, 24H, Fishbone Vital Signs/I&O Vital Signs Date Time Temp Pulse Resp B/P (MAP) Pulse Ox O2 Delivery O2 Flow Rate FiO2 08/23/18 09:25 132/64 08/23/18 06:00 96.7 62 17 91 08/22/18 06:00 1.0 I&O- Last 24 Hours up to 6 AM 08/23/18 06:00 Intake Total 460 ml Output Total 250 ml Balance 210 ml Laboratory Data 24H LABS Laboratory Tests 2 08/22/18 12:46: Bedside Glucose (Misc Panel) 137H 08/22/18 14:12: Urine Color YELLOW, Urine Appearance CLOUDYH, Urine pH 5.0, Urine Specific Gr avity 1.021, Urine Protein 2+H, Urine Glucose (UA) NEGATIVE, Urine Ketones TRACEH, Urine Blood NEGATIVE, Urine Nitrite NEGATIVE, Urine Bilirubin NEGATIVE, Urine Urobilinogen 0.2, Urine Leukocyte Esterase 1+H, Urine WBC (Auto) 14H, Urine RBC (Auto) 22H, Urine Hyaline Casts (Auto) 0, Urine Bacteria (Auto) 1+H, Urine Squamous Epithelial Cells 38, Urine Mucus (Auto) SMALL, Urine Yeast-Like Cells (Auto) SMALLH, Urine Sperm (Auto) 08/22/18 17:24: Bedside Glucose (Misc Panel) 145H 08/22/18 21:17: Bedside Glucose (Misc Panel) 138H 08/23/18 07:47: Nucleated Red Blood Cells % (auto) 0.0, Anion Gap 9, Glomerular Filtration Rate 38.5L, Blood Urea Nitrogen 26H, Creatinine 1.44H, Sodium Level 143, Potassium Level 3.7, Chloride Level 112H, Carbon Dioxide Level 22, Calcium Level 8.9, Aspartate Amino Transf (AST/SGOT) 15, Alanine Aminotransferase (ALT/SGPT) 8L, Alkaline Phosphatase 43L, Total Bilirubin 0.3, Total Protein 6.3L, Albumin 2.2L, Albumin/Globulin Ratio 0.54L CBC/BMP Laboratory Tests 08/23/18 07:47 Red Blood Count 3.00 L, Mean Corpuscular Volume 94.0, Mean Corpuscular Hemoglobin 32.3, Mean Corpuscular Hemoglobin Concent 34.4, Red Cell Distribution Width 13.0, Calcium Level 8.9, Aspartate Amino Transf (AST/SGOT) 15, Alanine Aminotransferase (ALT/SGPT) 8 L, Alkaline Phosphatase 43 L, Total Bilirubin 0.3, Total Protein 6.3 L, Albumin 2.2 L Microbiology Microbiology 08/16/18 Blood Culture - Final, Complete NO GROWTH AFTER 5 DAYS 08/16/18 Blood Culture - Final, Complete NO GROWTH AFTER 5 DAYS 08/22/18 Urine Culture - Final, Complete 08/20/18 Gram Stain - Final, Complete 08/20/18 Wound Culture - Final, Complete Proteus Mirabilis 08/20/18 Anaerobic Culture - Final, Complete 08/16/18 Gram Stain - Final, Complete 08/16/18 Wound Culture - Final, Complete Proteus Mirabilis Staphylococcus Sp Coag Neg Loren Bhatti August 23, 2018 11:56
--- NOTE | 2018-08-23 13:27 | IPNPDOC ---
Text Note Date of Service The patient was seen on 08/23/18. NOTE Subjective: Patient seen and examined at bedside. No acute overnight events. Patient has no new medical complaints this morning Objective: GENERAL: NAD, lying comfortably in bed HEENT: NC/AT, PERRL, EOMI NECK: No jugular venous distention (JVD). No bruits. LUNGS: Clear. No wheezing. No crackles. HEART: +S1S2, regular. No murmur. ABDOMEN: Soft. Bowel sounds positive. Nontender. EXTREMITIES: right AKA; LLE chronic wound A/P: #Left heel infected wound, MRI ruled out osteomyelitis - wound culture positive for Proteus and staph sp - day #3 s/p debridement - continue Augmentin (Proteus) and Doxy (staph sp) #left leg PAD - angiogram with vascular surgery is delayed due to increased Cr #Acute on CKD stage 3 - hold Lasix and gentle hydration - improving #positive UA - already on Abx - UCx shows no growth # DM T2, A1c 7.3% will continue insulin #left pre tibia cellulitis/chronic wound, stable VS,Fishbone, I+O VS, Fishbone, I+O Laboratory Tests 08/23/18 07:47 Red Blood Count 3.00 L, Mean Corpuscular Volume 94.0, Mean Corpuscular Hemoglobin 32.3, Mean Corpuscular Hemoglobin Concent 34.4, Red Cell Distribution Width 13.0, Calcium Level 8.9, Aspartate Amino Transf (AST/SGOT) 15, Alanine Aminotransferase (ALT/SGPT) 8 L, Alkaline Phosphatase 43 L, Total Bilirubin 0.3, Total Protein 6.3 L, Albumin 2.2 L Vital Signs Date Time Temp Pulse Resp B/P (MAP) Pulse Ox O2 Delivery O2 Flow Rate FiO2 08/23/18 09:25 132/64 08/23/18 06:00 96.7 62 17 91 08/22/18 06:00 1.0 I&O- Last 24 Hours up to 6 AM 08/23/18 06:00 Intake Total 460 ml Output Total 250 ml Balance 210 ml NERISSA HUGGINS MD August 23, 2018 13:27
[2018-08-23] MEDS: ACETAMINOPHEN TAB 650MG DOSE (2X325MG) PO PRN (15:41)
[2018-08-23] MEDS: ASPIRIN ENTERIC 325 MG TAB PO SCH (20:53)
[2018-08-23] MEDS: ROSUVASTATIN 10 MG TAB (CRESTOR) PO SCH (20:53)
[2018-08-23 22:00] VITALS: BP 120/60
[2018-08-23] MEDS: PERCOCET 5MG/325MG TAB PO PRN (22:06)
[2018-08-24] MEDS: LEVOTHYROXINE 50MCG TABLET (0.05MG) PO SCH (05:34)
[2018-08-24] MEDS: DAKIN'S 0.25% HALF-STRENGTH SOLN 480 ML TOP SCH ×3 (05:34→21:13)
[2018-08-24 06:00] VITALS: BP 168/78
[2018-08-24 06:33] LABS: HEMATOCRIT 29.3 % (36.0-47.0); HEMOGLOBIN 9.9 g/dl (12.0-15.5); MEAN CORPUSCULAR HEMOGLOBIN 32.1 pg (27.0-33.0); MEAN CORPUSCULAR HGB CONC 33.8 g/dl (32.0-36.5); MEAN CORPUSCULAR VOLUME 95.1 fl (80.0-96.0); PLATELET COUNT, AUTOMATED 268 10^3/uL (150-450); RED BLOOD COUNT 3.08 10^6/uL (4.00-5.40)
[2018-08-24 06:57] LABS: CALCIUM LEVEL 9.3 MG/DL (8.8-10.2); CREATININE FOR GFR 1.25 MG/DL (0.55-1.30); GLOMERULAR FILTRATION RATE 45.4 (>45); POTASSIUM SERUM 3.9 MEQ/L (3.5-5.1)
[2018-08-24] MEDS: AUGMENTIN 500 MG TAB PO SCH ×2 (08:02→21:12)
[2018-08-24] MEDS: MAGNESIUM GLUCONATE 500 MG TAB PO SCH ×2 (08:02→08:44)
[2018-08-24] MEDS: FERROUS GLUCONATE 324 MG TAB PO SCH (08:02)
[2018-08-24] MEDS: HEPARIN SOD (PORCINE) 5000 UNITS/ML VIAL SC SCH ×2 (08:02→21:11)
[2018-08-24] MEDS: POTASSIUM CHLORIDE 10 MEQ SR TABLET PO SCH (08:03)
[2018-08-24] MEDS: DOXYCYCLINE HYCLATE 100 MG TAB PO SCH ×2 (08:03→21:12)
[2018-08-24] MEDS: **hydrALAZINE** 10 MG TAB PO SCH ×2 (08:03→21:12)
[2018-08-24] MEDS: PENTOXIFYLLINE 400 MG TAB PO SCH (08:03)
[2018-08-24] MEDS: VITAMIN D 1,000 INTERNATIONAL UNITS TABLET PO SCH (08:03)
[2018-08-24] MEDS: HumaLOG INSULIN (NovoLOG) PER UNIT SC SCH ×4 (08:04→21:00)
[2018-08-24] MEDS: TIMOLOL MALEATE 0.5% OPHTH SOLN 5 ML OU SCH ×2 (08:04→21:13)
[2018-08-24] MEDS: LEVEMIR (INSULIN DETEMIR) 1 UNITS/0.01ML SC SCH (08:04)
[2018-08-24] MEDS: BRIMONIDINE 0.15% OPHTH SOLN 5 ML OU SCH ×2 (08:04→21:13)
[2018-08-24] MEDS: DOCUSATE SODIUM 100 MG CAP PO SCH ×2 (08:04→21:00)
--- NOTE | 2018-08-24 10:08 | IPNPDOC ---
Date Seen The patient was seen on 08/24/18. Progress Note HPI: The patient is a 68-year-old white female who presented to the emergency room (ER) for worsening left heel infection. She has a history of chronic wound Left pre tib area, she states this has been at baseline, has not seen Dr Ch for this issue for several months. She states in the last few weeks she has had a wound of her left heel which is getting worse gradually. The pt was admitted to the Hospitalist service and vascular surgery consulted related to her h/o PVD and LLE heel wound. The pt is s/p Left heel wound debridement as per Dr Durbin 08/20/18. Denies any fevers, chills, weakness, fatigue, Headache, Chest Pain, Shortness of breath, cough, palpitations, abdominal pain, N/V/D or changes in bowel or bladder habits. PAST MEDICAL HISTORY: DM 2 Morbid obesity BMI 46.1 Peripheral Vascular disease Chronic right foot wound HLD HTN Hypothyroidism Cataracts CKD. Follows with Dr Hopson. PAST SURGICAL HISTORY: CATARACTS 03/2016 ANGIOPLASTY AND STENT LLE 2009 GALL BLADDER 2008 REVASCULARIZATION RIGHT LEG AUGUST 2017 RIGHT SECOND TOE AMPUTATION AUGUST 2017 Rt AKA 10/12. PE: GEN: 68yoF, appears stated age. Alert and oriented x 3. HEENT: Normocephalic, atraumatic. Conjunctiva without injection. Moist mucous membranes. CHEST: Regular rate and rhythm, +S1, +S2 LUNGS: Clear to auscultation bilaterally. No wheezes, rales, or rhonchi. Breathing appears symmetric and easy. ABD: Round, soft, non-tender, non-distended. +Bowel sounds throughout. EXT: Rt AKA. LLE with pretibial wound noted, Left foot is bandaged. NEURO: Alert and oriented x 3. No focal deficits appreciated. Left foot MRI 1. Diffuse edema in the subcutaneous tissues of the foot most pronounced along the dorsal and lateral soft tissues of the mid and forefoot. Clinical correlation to exclude infection such as cellulitis suggested. 2. No abnormal marrow space signal demonstrated. No abnormal enhancement in the calcaneus or elsewhere in the osseous structures on post gadolinium imaging to suggest osteomyelitis. Electronically signed by: Albert Castellanos On 08/16/2018 19:20:52 PM A&P: The patient is a 68-year-old white female who presented to the emergency room (ER) for worsening left heel infection. She has a history of chronic wound Left pre tib area, she states this has been at baseline, has not seen Dr Ch for this issue for several months. She states in the last few weeks she has had a wound of her left heel which is getting worse gradually. The pt was admitted to the Hospitalist service and vascular surgery consulted related to her h/o PVD and LLE heel wound. 1. PAD. Reviewed Pt with Dr Durbin, the pt is well known to Dr Durbin. D/W Dr Durbin. Plan for Angiogram LLE 08/25/18 SCr this am 1.25, downtrending. 2. Non heeling Left heel wound. S/P debridement as per Dr Durbin 08/20/18. No OM as per MRI. WC 08/20/18 Proteus. Contnue wound care with Dakin yao Wet to dry Q8hrs. Monitor. 3. Left foot cellulitis. Mgmt as per Medicine. S/P IV Vanco/Zosyn, now po Augmentin/Doxy. BC x 2 neg WC proteus/staph. DVT prophylaxis. SQ Heparin. VS, I&O, 24H, Fishbone Vital Signs/I&O Vital Signs Date Time Temp Pulse Resp B/P (MAP) Pulse Ox O2 Delivery O2 Flow Rate FiO2 08/24/18 08:03 168/78 08/24/18 06:00 97.4 62 17 93 08/22/18 06:00 1.0 I&O- Last 24 Hours up to 6 AM 08/24/18 06:00 Intake Total 600 ml Output Total 400 ml Balance 200 ml Laboratory Data 24H LABS Laboratory Tests 2 08/23/18 20:16: Bedside Glucose (Misc Panel) 143H 08/24/18 05:56: Nucleated Red Blood Cells % (auto) 0.0, Anion Gap 8, Glomerular Filtration Rate 45.4, Blood Urea Nitrogen 24H, Creatinine 1.25, Sodium Level 142, Potassium Level 3.9, Chloride Level 110H, Carbon Dioxide Level 24, Calcium Level 9.3 CBC/BMP Laboratory Tests 08/24/18 05:56 Red Blood Count 3.08 L, Mean Corpuscular Volume 95.1, Mean Corpuscular Hemoglobin 32.1, Mean Corpuscular Hemoglobin Concent 33.8, Red Cell Distribution Width 13.0, Calcium Level 9.3 Microbiology Microbiology 08/16/18 Blood Culture - Final, Complete NO GROWTH AFTER 5 DAYS 08/16/18 Blood Culture - Final, Complete NO GROWTH AFTER 5 DAYS 08/22/18 Urine Culture - Final, Complete 08/20/18 Gram Stain - Final, Complete 08/20/18 Wound Culture - Final, Complete Proteus Mirabilis 08/20/18 Anaerobic Culture - Final, Complete 08/16/18 Gram Stain - Final, Complete 08/16/18 Wound Culture - Final, Complete Proteus Mirabilis Staphylococcus Sp Coag Neg Loren Bhatti August 24, 2018 10:08
--- NOTE | 2018-08-24 10:51 | IPNPDOC ---
Text Note Date of Service The patient was seen on 08/24/18. NOTE Subjective: Patient seen and examined at bedside. No acute overnight events. Patient has no new medical complaints this morning Objective: GENERAL: NAD, lying comfortably in bed HEENT: NC/AT, PERRL, EOMI NECK: No jugular venous distention (JVD). No bruits. LUNGS: Clear. No wheezing. No crackles. HEART: +S1S2, regular. No murmur. ABDOMEN: Soft. Bowel sounds positive. Nontender. EXTREMITIES: right AKA; LLE chronic wound A/P: #Left heel infected wound, MRI ruled out osteomyelitis - wound culture positive for Proteus and staph sp - day #4 s/p debridement - continue Augmentin (Proteus) and Doxy (staph sp) #left leg PAD - angiogram with vascular surgery is delayed due to increased Cr - creatinine improving - plan for angiogram tomorrow #Acute on CKD stage 3 - improving #positive UA - already on Abx - UCx shows no growth # DM T2, A1c 7.3% will continue insulin #left pre tibia cellulitis/chronic wound, stable VS,Fishbone, I+O VS, Fishbone, I+O Laboratory Tests 08/24/18 05:56 Red Blood Count 3.08 L, Mean Corpuscular Volume 95.1, Mean Corpuscular Hemoglobin 32.1, Mean Corpuscular Hemoglobin Concent 33.8, Red Cell Distribution Width 13.0, Calcium Level 9.3 Vital Signs Date Time Temp Pulse Resp B/P (MAP) Pulse Ox O2 Delivery O2 Flow Rate FiO2 08/24/18 08:03 168/78 08/24/18 06:00 97.4 62 17 93 08/22/18 06:00 1.0 I&O- Last 24 Hours up to 6 AM 08/24/18 06:00 Intake Total 600 ml Output Total 400 ml Balance 200 ml NERISSA HUGGINS MD August 24, 2018 10:51
[2018-08-24 14:00] VITALS: BP 148/66
[2018-08-24] MEDS: ASPIRIN ENTERIC 325 MG TAB PO SCH (21:12)
[2018-08-24] MEDS: PERCOCET 5MG/325MG TAB PO PRN (21:12)
[2018-08-24] MEDS: ROSUVASTATIN 10 MG TAB (CRESTOR) PO SCH (21:12)
[2018-08-24 22:00] VITALS: BP 140/70
[2018-08-25] VITALS (7 sets, daily range): BP systolic 120–172; BP diastolic 60–98
[2018-08-25] MEDS: DAKIN'S 0.25% HALF-STRENGTH SOLN 480 ML TOP SCH ×3 (05:37→21:06)
[2018-08-25] MEDS: LEVOTHYROXINE 50MCG TABLET (0.05MG) PO SCH (05:37)
[2018-08-25] MEDS: HumaLOG INSULIN (NovoLOG) PER UNIT SC SCH ×4 (07:30→21:00)
[2018-08-25] MEDS: LEVEMIR (INSULIN DETEMIR) 1 UNITS/0.01ML SC SCH (08:11)
[2018-08-25] MEDS: HEPARIN SOD (PORCINE) 5000 UNITS/ML VIAL SC SCH ×2 (08:23→21:03)
[2018-08-25] MEDS: PENTOXIFYLLINE 400 MG TAB PO SCH (08:23)
[2018-08-25] MEDS: DOXYCYCLINE HYCLATE 100 MG TAB PO SCH ×2 (08:23→21:04)
[2018-08-25 08:24] LABS: HEMOGLOBIN 9.3 g/dl (12.0-15.5); MEAN CORPUSCULAR HEMOGLOBIN 30.7 pg (27.0-33.0); MEAN CORPUSCULAR HGB CONC 33.2 g/dl (32.0-36.5); MEAN CORPUSCULAR VOLUME 92.4 fl (80.0-96.0); PLATELET COUNT, AUTOMATED 275 10^3/uL (150-450); RED BLOOD COUNT 3.03 10^6/uL (4.00-5.40); WHITE BLOOD COUNT 8.9 10^3/uL (4.0-10.0)
[2018-08-25] MEDS: **hydrALAZINE** 10 MG TAB PO SCH ×2 (08:24→21:04)
[2018-08-25] MEDS: VITAMIN D 1,000 INTERNATIONAL UNITS TABLET PO SCH (08:24)
[2018-08-25] MEDS: FERROUS GLUCONATE 324 MG TAB PO SCH (08:24)
[2018-08-25] MEDS: MAGNESIUM GLUCONATE 500 MG TAB PO SCH (08:24)
[2018-08-25] MEDS: POTASSIUM CHLORIDE 10 MEQ SR TABLET PO SCH (08:24)
[2018-08-25] MEDS: AUGMENTIN 500 MG TAB PO SCH ×2 (08:24→21:04)
[2018-08-25] MEDS: DOCUSATE SODIUM 100 MG CAP PO SCH ×2 (08:25→21:00)
[2018-08-25] MEDS: TIMOLOL MALEATE 0.5% OPHTH SOLN 5 ML OU SCH ×2 (08:25→21:05)
[2018-08-25] MEDS: BRIMONIDINE 0.15% OPHTH SOLN 5 ML OU SCH ×2 (08:25→21:05)
[2018-08-25 08:44] LABS: CALCIUM LEVEL 8.7 MG/DL (8.8-10.2); CREATININE FOR GFR 1.17 MG/DL (0.55-1.30); POTASSIUM SERUM 3.9 MEQ/L (3.5-5.1)
--- NOTE | 2018-08-25 09:38 | IPNPDOC ---
Date Seen The patient was seen on 08/25/18. Progress Note HPI: The patient is a 68-year-old white female who presented to the emergency room (ER) for worsening left heel infection. She has a history of chronic wound Left pre tib area, she states this has been at baseline, has not seen Dr Ch for this issue for several months. She states in the last few weeks she has had a wound of her left heel which is getting worse gradually. The pt was admitted to the Hospitalist service and vascular surgery consulted related to her h/o PVD and LLE heel wound. The pt is s/p Left heel wound debridement as per Dr Durbin 08/20/18. Denies any fevers, chills, weakness, fatigue, Headache, Chest Pain, Shortness of breath, cough, palpitations, abdominal pain, N/V/D or changes in bowel or bladder habits. PAST MEDICAL HISTORY: DM 2 Morbid obesity BMI 46.1 Peripheral Vascular disease Chronic right foot wound HLD HTN Hypothyroidism Cataracts CKD. Follows with Dr Hopson. PAST SURGICAL HISTORY: CATARACTS 03/2016 ANGIOPLASTY AND STENT LLE 2009 GALL BLADDER 2008 REVASCULARIZATION RIGHT LEG AUGUST 2017 RIGHT SECOND TOE AMPUTATION AUGUST 2017 Rt AKA 10/12. PE: GEN: 68yoF, appears stated age. Alert and oriented x 3. HEENT: Normocephalic, atraumatic. Conjunctiva without injection. Moist mucous membranes. CHEST: Regular rate and rhythm, +S1, +S2 LUNGS: Clear to auscultation bilaterally. No wheezes, rales, or rhonchi. Breathing appears symmetric and easy. ABD: Round, soft, non-tender, non-distended. +Bowel sounds throughout. EXT: Rt AKA. LLE with pretibial wound noted, Left foot is bandaged. NEURO: Alert and oriented x 3. No focal deficits appreciated. Left foot MRI 1. Diffuse edema in the subcutaneous tissues of the foot most pronounced along the dorsal and lateral soft tissues of the mid and forefoot. Clinical correlation to exclude infection such as cellulitis suggested. 2. No abnormal marrow space signal demonstrated. No abnormal enhancement in the calcaneus or elsewhere in the osseous structures on post gadolinium imaging to suggest osteomyelitis. Electronically signed by: Albert Castellanos On 08/16/2018 19:20:52 PM A&P: The patient is a 68-year-old white female who presented to the emergency room (ER) for worsening left heel infection. She has a history of chronic wound Left pre tib area, she states this has been at baseline, has not seen Dr Ch for this issue for several months. She states in the last few weeks she has had a wound of her left heel which is getting worse gradually. The pt was admitted to the Hospitalist service and vascular surgery consulted related to her h/o PVD and LLE heel wound. 1. PAD. Reviewed Pt with Dr Durbin, the pt is well known to Dr Durbin. D/W Dr Durbin. Plan for Angiogram LLE 08/25/18. SCr this am 1.17, downtrending. 2. Non heeling Left heel wound. S/P debridement as per Dr Durbin 08/20/18. No OM as per MRI. WC 08/20/18 Proteus. Contnue wound care with Dakin yao Wet to dry Q8hrs. Monitor. 3. Left foot cellulitis. Mgmt as per Medicine. S/P IV Vanco/Zosyn, now po Augmentin/Doxy. BC x 2 neg WC proteus/staph. DVT prophylaxis. SQ Heparin. VS, I&O, 24H, Fishbone Vital Signs/I&O Vital Signs Date Time Temp Pulse Resp B/P (MAP) Pulse Ox O2 Delivery O2 Flow Rate FiO2 08/25/18 08:24 140/70 08/25/18 06:00 97.2 55 18 96 08/22/18 06:00 1.0 I&O- Last 24 Hours up to 6 AM 08/25/18 06:00 Intake Total 450 ml Output Total 600 ml Balance -150 ml Laboratory Data 24H LABS Laboratory Tests 2 08/24/18 11:39: Bedside Glucose (Misc Panel) 149H 08/24/18 16:53: Bedside Glucose (Misc Panel) 110 08/24/18 21:02: Bedside Glucose (Misc Panel) 120H 08/25/18 05:40: Bedside Glucose (Misc Panel) 75L 08/25/18 08:08: Nucleated Red Blood Cells % (auto) 0.0, Anion Gap 6L, Glomerular Filtration Rate 49.0, Blood Urea Nitrogen 22H, Creatinine 1.17, Sodium Level 144, Potassium Level 3.9, Chloride Level 113H, Carbon Dioxide Level 25, Calcium Level 8.7L CBC/BMP Laboratory Tests 08/25/18 08:08 Red Blood Count 3.03 L, Mean Corpuscular Volume 92.4, Mean Corpuscular Hemoglobin 30.7, Mean Corpuscular Hemoglobin Concent 33.2, Red Cell Distribution Width 13.0, Calcium Level 8.7 L Microbiology Microbiology 08/16/18 Blood Culture - Final, Complete NO GROWTH AFTER 5 DAYS 08/16/18 Blood Culture - Final, Complete NO GROWTH AFTER 5 DAYS 08/22/18 Urine Culture - Final, Complete 08/20/18 Gram Stain - Final, Complete 08/20/18 Wound Culture - Final, Complete Proteus Mirabilis 08/20/18 Anaerobic Culture - Final, Complete 08/16/18 Gram Stain - Final, Complete 08/16/18 Wound Culture - Final, Complete Proteus Mirabilis Staphylococcus Sp Coag Neg Loren Bhatti August 25, 2018 09:38
--- NOTE | 2018-08-25 09:49 | IPNPDOC ---
Text Note Date of Service The patient was seen on 08/25/18. NOTE Subjective: Patient seen and examined at bedside. No acute overnight events. Patient has no new medical complaints this morning Objective: GENERAL: NAD, lying comfortably in bed HEENT: NC/AT, PERRL, EOMI NECK: No jugular venous distention (JVD). No bruits. LUNGS: Clear. No wheezing. No crackles. HEART: +S1S2, regular. No murmur. ABDOMEN: Soft. Bowel sounds positive. Nontender. EXTREMITIES: right AKA; LLE chronic wound A/P: 68-yo female presented to the ED for worsening left heel infection. She has a history of chronic wound Left pre tib area, she states this has been at baseline, has not seen Dr Ch for this issue for several months. Over last few weeks she had a wound of her left heel which is getting worse gradually. The pt was admitted to the Hospitalist service and vascular surgery consulted related to her h/o PVD and LLE heel wound. #Left heel infected wound, MRI ruled out osteomyelitis - wound culture positive for Proteus and staph sp - day #5 s/p debridement - continue Augmentin (Proteus) and Doxy (staph sp) - Contnue wound care with Dakin yao Wet to dry Q8hrs. Monitor. #PAD - plan for LLE angiogram today - follow as per vascular - assistance appreciated #Acute on CKD stage 3 - continues to improve #positive UA - already on Abx - UCx shows no growth # DM T2, A1c 7.3% will continue insulin #left pre-tibia cellulitis/chronic wound, stable #DVT prophylaxis. SQ Heparin. VS,Fishbone, I+O VS, Fishbone, I+O Laboratory Tests 08/25/18 08:08 Red Blood Count 3.03 L, Mean Corpuscular Volume 92.4, Mean Corpuscular Hemoglobin 30.7, Mean Corpuscular Hemoglobin Concent 33.2, Red Cell Distribution Width 13.0, Calcium Level 8.7 L Vital Signs Date Time Temp Pulse Resp B/P (MAP) Pulse Ox O2 Delivery O2 Flow Rate FiO2 08/25/18 08:24 140/70 08/25/18 06:00 97.2 55 18 96 08/22/18 06:00 1.0 I&O- Last 24 Hours up to 6 AM 5/31/19 06:00 Intake Total 450 ml Output Total 600 ml Balance -150 ml NERISSA HUGGINS MD August 25, 2018 09:49
[2018-08-25] MEDS ORDERED: diphenhydrAMINE INJ 50MG/ML VIAL (J1200) As Ordered ONE (13:21)
[2018-08-25] MEDS ORDERED: LIDOCAINE 2% MDV 20 ML VIAL As Ordered ONE (13:22)
[2018-08-25] MEDS ORDERED: BUPIVACAINE HCL 0.5% 10 ML VIAL As Ordered ONE (13:22)
[2018-08-25] MEDS ORDERED: PROTAMINE SULF INJ 50 MG/5 ML VIAL (J2720) As Ordered ONE (13:22)
[2018-08-25] MEDS ORDERED: ISOVUE-300 61% 50ML VIAL (Q9967) As Ordered ONE (13:22)
[2018-08-25] MEDS ORDERED: HEPARIN 1,000 UNITS/ML 10ML VIAL (FOR RADIOLOGY& DIALYSIS ONLY) As Ordered ONE (13:23)
[2018-08-25] MEDS ORDERED: MIDAZOLAM INJ 2 MG/2 ML VIAL (J2250) As Ordered ONE (13:26)
[2018-08-25] MEDS ORDERED: fentaNYL 100 MCG/2 ML INJECTION (J3010) As Ordered ONE (13:26)
[2018-08-25] MEDS ORDERED: NS 0.45% 1,000 ML IV SCH (17:45)
[2018-08-25] MEDS: ASPIRIN ENTERIC 325 MG TAB PO SCH (21:04)
[2018-08-25] MEDS: ROSUVASTATIN 10 MG TAB (CRESTOR) PO SCH (21:04)
[2018-08-25] MEDS: PERCOCET 5MG/325MG TAB PO PRN (21:05)
[2018-08-26 05:54] LABS: HEMATOCRIT 28.8 % (36.0-47.0); HEMOGLOBIN 9.7 g/dl (12.0-15.5); MEAN CORPUSCULAR HEMOGLOBIN 31.9 pg (27.0-33.0); MEAN CORPUSCULAR HGB CONC 33.7 g/dl (32.0-36.5); MEAN CORPUSCULAR VOLUME 94.7 fl (80.0-96.0); PLATELET COUNT, AUTOMATED 265 10^3/uL (150-450); RED BLOOD COUNT 3.04 10^6/uL (4.00-5.40); WHITE BLOOD COUNT 8.5 10^3/uL (4.0-10.0)
[2018-08-26 06:00] VITALS: BP 145/75
[2018-08-26] MEDS: PERCOCET 5MG/325MG TAB PO PRN (06:13)
[2018-08-26] MEDS: DAKIN'S 0.25% HALF-STRENGTH SOLN 480 ML TOP SCH ×3 (06:13→21:48)
[2018-08-26] MEDS: LEVOTHYROXINE 50MCG TABLET (0.05MG) PO SCH (06:13)
[2018-08-26 06:18] LABS: CALCIUM LEVEL 8.9 MG/DL (8.8-10.2); CREATININE FOR GFR 1.09 MG/DL (0.55-1.30); GLOMERULAR FILTRATION RATE 53.1 (>45); POTASSIUM SERUM 4.2 MEQ/L (3.5-5.1)
[2018-08-26] MEDS: HumaLOG INSULIN (NovoLOG) PER UNIT SC SCH ×4 (07:30→21:00)
[2018-08-26] MEDS: HEPARIN SOD (PORCINE) 5000 UNITS/ML VIAL SC SCH ×2 (09:00→21:47)
[2018-08-26] MEDS: DOCUSATE SODIUM 100 MG CAP PO SCH ×2 (09:00→21:00)
[2018-08-26] MEDS: PENTOXIFYLLINE 400 MG TAB PO SCH (09:15)
[2018-08-26] MEDS: AUGMENTIN 500 MG TAB PO SCH ×2 (09:15→21:47)
[2018-08-26] MEDS: MAGNESIUM GLUCONATE 500 MG TAB PO SCH (09:16)
[2018-08-26] MEDS: POTASSIUM CHLORIDE 10 MEQ SR TABLET PO SCH (09:16)
[2018-08-26] MEDS: FERROUS GLUCONATE 324 MG TAB PO SCH (09:16)
[2018-08-26] MEDS: **hydrALAZINE** 10 MG TAB PO SCH ×2 (09:17→21:49)
[2018-08-26] MEDS: DOXYCYCLINE HYCLATE 100 MG TAB PO SCH ×2 (09:17→21:47)
[2018-08-26] MEDS: VITAMIN D 1,000 INTERNATIONAL UNITS TABLET PO SCH (09:17)
[2018-08-26] MEDS: BRIMONIDINE 0.15% OPHTH SOLN 5 ML OU SCH ×2 (09:18→21:47)
[2018-08-26] MEDS: TIMOLOL MALEATE 0.5% OPHTH SOLN 5 ML OU SCH ×2 (09:19→21:47)
[2018-08-26] MEDS: LEVEMIR (INSULIN DETEMIR) 1 UNITS/0.01ML SC SCH (10:22)
--- NOTE | 2018-08-26 11:43 | IPNPDOC ---
Text Note Date of Service The patient was seen on 08/26/18. NOTE Subjective: Patient seen and examined at bedside. No acute overnight events. Underwent angiogram yesterday. No new medical complaints. Objective: GENERAL: NAD, lying comfortably in bed HEENT: NC/AT, PERRL, EOMI NECK: No jugular venous distention (JVD). No bruits. LUNGS: Clear. No wheezing. No crackles. HEART: +S1S2, regular. No murmur. ABDOMEN: Soft. Bowel sounds positive. Nontender. EXTREMITIES: right AKA; LLE chronic wound A/P: 68-yo female presented to the ED for worsening left heel infection. She has a history of chronic wound Left pre tib area, she states this has been at baseline, has not seen Dr Ch for this issue for several months. Over last few weeks she had a wound of her left heel which is getting worse gradually. The pt was admitted to the Hospitalist service and vascular surgery consulted related to her h/o PVD and LLE heel wound. #Left heel infected wound, MRI ruled out osteomyelitis - wound culture positive for Proteus and staph sp - day #6 s/p debridement - continue Augmentin (Proteus) and Doxy (staph sp) - Contnue wound care with Dakin yao Wet to dry Q8hrs. Monitor. #PAD - s/p angiogram yesterday - plan for further investigations Tuesday/Tuesday - follow as per vascular - assistance appreciated #Acute on CKD stage 3 - continues to improve #positive UA - already on Abx - UCx shows no growth # DM T2, A1c 7.3% will continue insulin #left pre-tibia cellulitis/chronic wound, stable #DVT prophylaxis. SQ Heparin. VS,Fishbone, I+O VS, Fishbone, I+O Laboratory Tests 08/26/18 05:29 Red Blood Count 3.04 L, Mean Corpuscular Volume 94.7, Mean Corpuscular Hemoglobin 31.9, Mean Corpuscular Hemoglobin Concent 33.7, Red Cell Distribution Width 13.1, Calcium Level 8.9 Vital Signs Date Time Temp Pulse Resp B/P (MAP) Pulse Ox O2 Delivery O2 Flow Rate FiO2 08/26/18 09:17 145/75 08/26/18 06:43 16 08/26/18 06:00 97.4 60 96 08/22/18 06:00 1.0 I&O- Last 24 Hours up to 6 AM 08/26/18 05:59 Intake Total 980 ml Output Total 200 ml Balance 780 ml NERISSA HUGGINS MD Aug 26, 2018 11:43
[2018-08-26 14:00] VITALS: BP_SYST 141; BP_SYST 94; BP_DIAS 50; BP_DIAS 65
[2018-08-26] MEDS: ASPIRIN ENTERIC 325 MG TAB PO SCH (21:47)
[2018-08-26] MEDS: ROSUVASTATIN 10 MG TAB (CRESTOR) PO SCH (21:47)
[2018-08-26] MEDS: ACETAMINOPHEN TAB 650MG DOSE (2X325MG) PO PRN (21:50)
[2018-08-26 22:00] VITALS: BP 135/60
[2018-08-27] MEDS: DAKIN'S 0.25% HALF-STRENGTH SOLN 480 ML TOP SCH ×3 (05:27→23:25)
[2018-08-27] MEDS: LEVOTHYROXINE 50MCG TABLET (0.05MG) PO SCH (05:27)
[2018-08-27 06:00] VITALS: BP 148/67
[2018-08-27 06:14] LABS: HEMATOCRIT 29.1 % (36.0-47.0); MEAN CORPUSCULAR HEMOGLOBIN 32.6 pg (27.0-33.0); MEAN CORPUSCULAR HGB CONC 34.4 g/dl (32.0-36.5); MEAN CORPUSCULAR VOLUME 94.8 fl (80.0-96.0); PLATELET COUNT, AUTOMATED 276 10^3/uL (150-450); RED BLOOD COUNT 3.07 10^6/uL (4.00-5.40); WHITE BLOOD COUNT 8.9 10^3/uL (4.0-10.0)
[2018-08-27 06:36] LABS: CALCIUM LEVEL 8.3 MG/DL (8.8-10.2); CREATININE FOR GFR 1.06 MG/DL (0.55-1.30); GLOMERULAR FILTRATION RATE 54.9 (>45); POTASSIUM SERUM 4.1 MEQ/L (3.5-5.1)
[2018-08-27] MEDS: HumaLOG INSULIN (NovoLOG) PER UNIT SC SCH ×4 (07:30→21:00)
[2018-08-27] MEDS: MAGNESIUM GLUCONATE 500 MG TAB PO SCH (09:00)
[2018-08-27] MEDS: DOCUSATE SODIUM 100 MG CAP PO SCH ×2 (09:00→21:00)
[2018-08-27] MEDS: PENTOXIFYLLINE 400 MG TAB PO SCH (09:51)
[2018-08-27] MEDS: DOXYCYCLINE HYCLATE 100 MG TAB PO SCH ×2 (09:51→21:24)
[2018-08-27] MEDS: **hydrALAZINE** 10 MG TAB PO SCH ×2 (09:52→21:25)
[2018-08-27] MEDS: POTASSIUM CHLORIDE 10 MEQ SR TABLET PO SCH (09:52)
[2018-08-27] MEDS: VITAMIN D 1,000 INTERNATIONAL UNITS TABLET PO SCH (09:52)
[2018-08-27] MEDS: AUGMENTIN 500 MG TAB PO SCH ×2 (09:53→21:31)
[2018-08-27] MEDS: BRIMONIDINE 0.15% OPHTH SOLN 5 ML OU SCH ×2 (09:53→21:25)
[2018-08-27] MEDS: FERROUS GLUCONATE 324 MG TAB PO SCH (09:53)
[2018-08-27] MEDS: TIMOLOL MALEATE 0.5% OPHTH SOLN 5 ML OU SCH ×2 (09:53→21:25)
[2018-08-27] MEDS: HEPARIN SOD (PORCINE) 5000 UNITS/ML VIAL SC SCH ×2 (09:53→21:26)
[2018-08-27] MEDS: LEVEMIR (INSULIN DETEMIR) 1 UNITS/0.01ML SC SCH (09:54)
--- NOTE | 2018-08-27 10:39 | IPNPDOC ---
Text Note Date of Service The patient was seen on 08/27/18. NOTE Subjective: Patient seen and examined at bedside. No acute overnight events. Underwent angiogram yesterday. No new medical complaints. Objective: GENERAL: NAD, lying comfortably in bed HEENT: NC/AT, PERRL, EOMI NECK: No jugular venous distention (JVD). No bruits. LUNGS: Clear. No wheezing. No crackles. HEART: +S1S2, regular. No murmur. ABDOMEN: Soft. Bowel sounds positive. Nontender. EXTREMITIES: right AKA; LLE chronic wound A/P: 68-yo female presented to the ED for worsening left heel infection. She has a history of chronic wound Left pre tib area, she states this has been at baseline, has not seen Dr Ch for this issue for several months. Over last few weeks she had a wound of her left heel which is getting worse gradually. The pt was admitted to the Hospitalist service and vascular surgery consulted related to her h/o PVD and LLE heel wound. #Left heel infected wound, MRI ruled out osteomyelitis - wound culture positive for Proteus and staph sp - day #7 s/p debridement - continue Augmentin (Proteus) and Doxy (staph sp) - d/w vascular regarding end date - Continue wound care with Dakin yao Wet to dry Q8hrs. Monitor. #PAD - s/p angiogram - plan for further investigations Tuesday/Tuesday - follow as per vascular - assistance appreciated #Acute on CKD stage 3 - continues to improve #positive UA - already on Abx - UCx shows no growth # DM T2, A1c 7.3% will continue insulin #left pre-tibia cellulitis/chronic wound, stable #DVT prophylaxis. SQ Heparin. Dispo: plan for further interventions from vascular surgery tomorrow; f/u PT VS,Fishbone, I+O VS, Fishbone, I+O Laboratory Tests 08/27/18 05:26 Red Blood Count 3.07 L, Mean Corpuscular Volume 94.8, Mean Corpuscular Hemoglobin 32.6, Mean Corpuscular Hemoglobin Concent 34.4, Red Cell Distribution Width 13.2, Calcium Level 8.3 L Vital Signs Date Time Temp Pulse Resp B/P (MAP) Pulse Ox O2 Delivery O2 Flow Rate FiO2 08/27/18 09:52 148/67 08/27/18 06:00 97.1 53 20 95 08/22/18 06:00 1.0 I&O- Last 24 Hours up to 6 AM 08/27/18 06:00 Intake Total 1760 ml Output Total 475 ml Balance 1285 ml NERISSA HUGGINS MD Aug 27, 2018 10:39
[2018-08-27 14:00] VITALS: BP 150/62
[2018-08-27] MEDS: ROSUVASTATIN 10 MG TAB (CRESTOR) PO SCH (21:24)
[2018-08-27] MEDS: ASPIRIN ENTERIC 325 MG TAB PO SCH (21:24)
[2018-08-27] MEDS: ACETAMINOPHEN TAB 650MG DOSE (2X325MG) PO PRN (21:31)
[2018-08-27 22:00] VITALS: BP 137/61
[2018-08-28 06:00] VITALS: BP 143/72
[2018-08-28] MEDS: LEVOTHYROXINE 50MCG TABLET (0.05MG) PO SCH (06:11)
[2018-08-28] MEDS: DAKIN'S 0.25% HALF-STRENGTH SOLN 480 ML TOP SCH ×2 (06:12→14:00)
[2018-08-28 06:32] LABS: HEMATOCRIT 31.8 % (36.0-47.0); HEMOGLOBIN 10.5 g/dl (12.0-15.5); MEAN CORPUSCULAR HEMOGLOBIN 31.8 pg (27.0-33.0); MEAN CORPUSCULAR VOLUME 96.4 fl (80.0-96.0); PLATELET COUNT, AUTOMATED 293 10^3/uL (150-450); WHITE BLOOD COUNT 8.3 10^3/uL (4.0-10.0)
[2018-08-28 06:56] LABS: CALCIUM LEVEL 8.8 MG/DL (8.8-10.2); CREATININE FOR GFR 1.21 MG/DL (0.55-1.30); GLOMERULAR FILTRATION RATE 47.1 (>45); POTASSIUM SERUM 4.5 MEQ/L (3.5-5.1)
[2018-08-28] MEDS: HumaLOG INSULIN (NovoLOG) PER UNIT SC SCH ×4 (07:30→21:00)
[2018-08-28] MEDS: MAGNESIUM GLUCONATE 500 MG TAB PO SCH (09:00)
[2018-08-28] MEDS: LEVEMIR (INSULIN DETEMIR) 1 UNITS/0.01ML SC SCH (09:00)
[2018-08-28] MEDS: HEPARIN SOD (PORCINE) 5000 UNITS/ML VIAL SC SCH ×2 (09:01→21:30)
[2018-08-28] MEDS: AUGMENTIN 500 MG TAB PO SCH ×2 (09:02→21:29)
[2018-08-28] MEDS: POTASSIUM CHLORIDE 10 MEQ SR TABLET PO SCH (09:02)
[2018-08-28] MEDS: VITAMIN D 1,000 INTERNATIONAL UNITS TABLET PO SCH (09:02)
[2018-08-28] MEDS: DOCUSATE SODIUM 100 MG CAP PO SCH ×2 (09:03→21:29)
[2018-08-28] MEDS: PENTOXIFYLLINE 400 MG TAB PO SCH (09:03)
[2018-08-28] MEDS: DOXYCYCLINE HYCLATE 100 MG TAB PO SCH ×2 (09:03→21:30)
[2018-08-28] MEDS: FERROUS GLUCONATE 324 MG TAB PO SCH (09:03)
[2018-08-28] MEDS: **hydrALAZINE** 10 MG TAB PO SCH ×2 (09:06→21:29)
[2018-08-28] MEDS: BRIMONIDINE 0.15% OPHTH SOLN 5 ML OU SCH ×2 (09:07→21:30)
[2018-08-28] MEDS: TIMOLOL MALEATE 0.5% OPHTH SOLN 5 ML OU SCH ×2 (09:35→21:30)
--- NOTE | 2018-08-28 12:43 | IPNPDOC ---
Date Seen The patient was seen on 08/28/18. Progress Note HPI: The patient is a 68-year-old white female who presented to the emergency room (ER) for worsening left heel infection. She has a history of chronic wound Left pre tib area, she states this has been at baseline, has not seen Dr Ch for this issue for several months. She states in the last few weeks she has had a wound of her left heel which is getting worse gradually. The pt was admitted to the Hospitalist service and vascular surgery consulted related to her h/o PVD and LLE heel wound. The pt is s/p Left heel wound debridement as per Dr Durbin 08/20/18. Denies any fevers, chills, weakness, fatigue, Headache, Chest Pain, Shortness of breath, cough, palpitations, abdominal pain, N/V/D or changes in bowel or bladder habits. PAST MEDICAL HISTORY: DM 2 Morbid obesity BMI 46.1 Peripheral Vascular disease Chronic right foot wound HLD HTN Hypothyroidism Cataracts CKD. Follows with Dr Hopson. PAST SURGICAL HISTORY: CATARACTS 03/2016 ANGIOPLASTY AND STENT LLE 2009 GALL BLADDER 2008 REVASCULARIZATION RIGHT LEG AUGUST 2017 RIGHT SECOND TOE AMPUTATION AUGUST 2017 Rt AKA 10/12. PE: GEN: 68yoF, appears stated age. Alert and oriented x 3. HEENT: Normocephalic, atraumatic. Conjunctiva without injection. Moist mucous membranes. CHEST: Regular rate and rhythm, +S1, +S2 LUNGS: Clear to auscultation bilaterally. No wheezes, rales, or rhonchi. Breathing appears symmetric and easy. ABD: Round, soft, non-tender, non-distended. +Bowel sounds throughout. EXT: Rt AKA. LLE with pretibial wound noted, Left foot is bandaged. NEURO: Alert and oriented x 3. No focal deficits appreciated. Left foot MRI 1. Diffuse edema in the subcutaneous tissues of the foot most pronounced along the dorsal and lateral soft tissues of the mid and forefoot. Clinical correlation to exclude infection such as cellulitis suggested. 2. No abnormal marrow space signal demonstrated. No abnormal enhancement in the calcaneus or elsewhere in the osseous structures on post gadolinium imaging to suggest osteomyelitis. Electronically signed by: Albert Castellanos On 08/16/2018 19:20:52 PM A&P: The patient is a 68-year-old white female who presented to the emergency room (ER) for worsening left heel infection. She has a history of chronic wound Left pre tib area, she states this has been at baseline, has not seen Dr Ch for this issue for several months. She states in the last few weeks she has had a wound of her left heel which is getting worse gradually. The pt was admitted to the Hospitalist service and vascular surgery consulted related to her h/o PVD and LLE heel wound. 1. PAD. The pt is well known to Dr Durbin. D/W Dr Durbin. S/P Angiogram LLE 08/25/18 with plan for Angiogram with intervention when renal function improves hopefully next 1-2 days. SCr this am 1.21, trending up. 2. Non heeling Left heel wound. S/P debridement as per Dr Durbin 08/20/18. No OM as per MRI. WC 08/20/18 Proteus. Contnue wound care with Dakin yao Wet to dry Q8hrs. Monitor. 3. Left foot cellulitis. Mgmt as per Medicine. S/P IV Vanco/Zosyn, now po Augmentin/Doxy. BC x 2 neg WC proteus/staph. DVT prophylaxis. SQ Heparin. VS, I&O, 24H, Fishbone Vital Signs/I&O Vital Signs Date Time Temp Pulse Resp B/P (MAP) Pulse Ox O2 Delivery O2 Flow Rate FiO2 08/28/18 09:06 169/61 08/28/18 06:00 97.6 52 20 95 08/22/18 06:00 1.0 I&O- Last 24 Hours up to 6 AM 08/28/18 06:00 Intake Total 890 ml Output Total 475 ml Balance 415 ml Laboratory Data 24H LABS Laboratory Tests 2 08/27/18 16:38: Bedside Glucose (Misc Panel) 125H 08/27/18 20:26: Bedside Glucose (Misc Panel) 128H 08/28/18 06:02: Nucleated Red Blood Cells % (auto) 0.0, Anion Gap 7L, Glomerular Filtration Rate 47.1, Blood Urea Nitrogen 29H, Creatinine 1.21, Sodium Level 143, Potassium Level 4.5, Chloride Level 112H, Carbon Dioxide Level 24, Calcium Level 8.8 CBC/BMP Laboratory Tests 08/28/18 06:02 Red Blood Count 3.30 L, Mean Corpuscular Volume 96.4 H, Mean Corpuscular Hemoglobin 31.8, Mean Corpuscular Hemoglobin Concent 33.0, Red Cell Distribution Width 13.4, Calcium Level 8.8 Microbiology Microbiology 08/22/18 Urine Culture - Final, Complete 08/20/18 Gram Stain - Final, Complete 08/20/18 Wound Culture - Final, Complete Proteus Mirabilis 08/20/18 Anaerobic Culture - Final, Complete Loren Bhatti Aug 28, 2018 12:43
[2018-08-28 14:00] VITALS: BP 155/72
--- NOTE | 2018-08-28 17:05 | IPNPDOC ---
Text Note Date of Service The patient was seen on 08/28/18. NOTE Subjective: Patient seen and examined at bedside. No acute overnight events. Underwent angiogram yesterday. No new medical complaints. Objective: GENERAL: NAD, lying comfortably in bed HEENT: NC/AT, PERRL, EOMI NECK: No jugular venous distention (JVD). No bruits. LUNGS: Clear. No wheezing. No crackles. HEART: +S1S2, regular. No murmur. ABDOMEN: Soft. Bowel sounds positive. Nontender. EXTREMITIES: right AKA; LLE chronic wound A/P: 68-yo female presented to the ED for worsening left heel infection. She has a history of chronic wound Left pre tib area, she states this has been at baseline, has not seen Dr Ch for this issue for several months. Over last few weeks she had a wound of her left heel which is getting worse gradually. The pt was admitted to the Hospitalist service and vascular surgery consulted related to her h/o PVD and LLE heel wound. #Left heel infected wound, MRI ruled out osteomyelitis - wound culture positive for Proteus and staph sp - day #8 s/p debridement - continue Augmentin (Proteus) and Doxy (staph sp) - d/w vascular regarding end date - Continue wound care with Dakin yao Wet to dry Q8hrs. Monitor. #PAD - s/p angiogram - plan for further investigations Tuesday/Tuesday - follow as per vascular - assistance appreciated #Acute on CKD stage 3 - renal function worsening today #positive UA - already on Abx - UCx shows no growth # DM T2, A1c 7.3% will continue insulin #left pre-tibia cellulitis/chronic wound, stable #DVT prophylaxis. SQ Heparin. Dispo: plan for further interventions from vascular surgery pending improvement in renal function; ARU screen for possible discharge to rehab VS,Karo, I+O VS, [place], I+O Laboratory Tests 08/28/18 06:02 Red Blood Count 3.30 L, Mean Corpuscular Volume 96.4 H, Mean Corpuscular Hemoglobin 31.8, Mean Corpuscular Hemoglobin Concent 33.0, Red Cell Distribution Width 13.4, Calcium Level 8.8 Vital Signs Date Time Temp Pulse Resp B/P (MAP) Pulse Ox O2 Delivery O2 Flow Rate FiO2 6/3/19 14:00 97.3 60 20 155/72 (99) 96 08/22/18 06:00 1.0 I&O- Last 24 Hours up to 6 AM 08/28/18 06:00 Intake Total 890 ml Output Total 475 ml Balance 415 ml NERISSA HUGGINS MD Aug 28, 2018 17:05
[2018-08-28] MEDS: ROSUVASTATIN 10 MG TAB (CRESTOR) PO SCH (21:29)
[2018-08-28] MEDS: ASPIRIN ENTERIC 325 MG TAB PO SCH (21:30)
[2018-08-28] MEDS: ACETAMINOPHEN TAB 650MG DOSE (2X325MG) PO PRN (21:31)
[2018-08-28 22:00] VITALS: BP 175/72
[2018-08-29] MEDS: DAKIN'S 0.25% HALF-STRENGTH SOLN 480 ML TOP SCH ×4 (00:13→23:28)
[2018-08-29 06:00] VITALS: BP 171/71
[2018-08-29 06:13] LABS: HEMATOCRIT 31.2 % (36.0-47.0); HEMOGLOBIN 10.3 g/dl (12.0-15.5); MEAN CORPUSCULAR HEMOGLOBIN 30.8 pg (27.0-33.0); MEAN CORPUSCULAR VOLUME 93.4 fl (80.0-96.0); PLATELET COUNT, AUTOMATED 307 10^3/uL (150-450); RED BLOOD COUNT 3.34 10^6/uL (4.00-5.40); WHITE BLOOD COUNT 9.4 10^3/uL (4.0-10.0)
[2018-08-29] MEDS: LEVOTHYROXINE 50MCG TABLET (0.05MG) PO SCH (06:13)
[2018-08-29 06:42] LABS: CALCIUM LEVEL 8.6 MG/DL (8.8-10.2); CREATININE FOR GFR 1.12 MG/DL (0.55-1.30); GLOMERULAR FILTRATION RATE 51.5 (>45); POTASSIUM SERUM 4.2 MEQ/L (3.5-5.1)
[2018-08-29] MEDS: PENTOXIFYLLINE 400 MG TAB PO SCH (08:53)
[2018-08-29] MEDS: VITAMIN D 1,000 INTERNATIONAL UNITS TABLET PO SCH (08:53)
[2018-08-29] MEDS: DOCUSATE SODIUM 100 MG CAP PO SCH ×2 (08:53→20:46)
[2018-08-29] MEDS: AUGMENTIN 500 MG TAB PO SCH ×2 (08:53→20:46)
[2018-08-29] MEDS: MAGNESIUM GLUCONATE 500 MG TAB PO SCH ×2 (08:53→08:58)
[2018-08-29] MEDS: FERROUS GLUCONATE 324 MG TAB PO SCH (08:54)
[2018-08-29] MEDS: POTASSIUM CHLORIDE 10 MEQ SR TABLET PO SCH (08:54)
[2018-08-29] MEDS: DOXYCYCLINE HYCLATE 100 MG TAB PO SCH ×2 (08:54→20:46)
[2018-08-29] MEDS: TIMOLOL MALEATE 0.5% OPHTH SOLN 5 ML OU SCH ×2 (08:54→20:47)
[2018-08-29] MEDS: BRIMONIDINE 0.15% OPHTH SOLN 5 ML OU SCH ×2 (08:54→20:47)
[2018-08-29] MEDS: **hydrALAZINE** 10 MG TAB PO SCH ×2 (08:54→20:45)
[2018-08-29] MEDS: HEPARIN SOD (PORCINE) 5000 UNITS/ML VIAL SC SCH ×2 (08:54→20:46)
[2018-08-29] MEDS: HumaLOG INSULIN (NovoLOG) PER UNIT SC SCH ×4 (08:55→20:46)
[2018-08-29] MEDS: LEVEMIR (INSULIN DETEMIR) 1 UNITS/0.01ML SC SCH (08:58)
--- NOTE | 2018-08-29 10:55 | IPNPDOC ---
Date Seen The patient was seen on 08/29/18. Progress Note HPI: The patient is a 68-year-old white female who presented to the emergency room (ER) for worsening left heel infection. She has a history of chronic wound Left pre tib area, she states this has been at baseline, has not seen Dr Ch for this issue for several months. She states in the last few weeks she has had a wound of her left heel which is getting worse gradually. The pt was admitted to the Hospitalist service and vascular surgery consulted related to her h/o PVD and LLE heel wound. The pt is s/p Left heel wound debridement as per Dr Durbin 08/20/18. Denies any fevers, chills, weakness, fatigue, Headache, Chest Pain, Shortness of breath, cough, palpitations, abdominal pain, N/V/D or changes in bowel or bladder habits. PAST MEDICAL HISTORY: DM 2 Morbid obesity BMI 46.1 Peripheral Vascular disease Chronic right foot wound HLD HTN Hypothyroidism Cataracts CKD. Follows with Dr Hopson. PAST SURGICAL HISTORY: CATARACTS 03/2016 ANGIOPLASTY AND STENT LLE 2009 GALL BLADDER 2008 REVASCULARIZATION RIGHT LEG AUGUST 2017 RIGHT SECOND TOE AMPUTATION AUGUST 2017 Rt AKA 10/12. PE: GEN: 68yoF, appears stated age. Alert and oriented x 3. HEENT: Normocephalic, atraumatic. Conjunctiva without injection. Moist mucous membranes. CHEST: Regular rate and rhythm, +S1, +S2 LUNGS: Clear to auscultation bilaterally. No wheezes, rales, or rhonchi. ABD: Round, soft, non-tender, non-distended. +Bowel sounds throughout. EXT: Rt AKA. LLE with pretibial wound noted, Left foot is bandaged. NEURO: Alert and oriented x 3. No focal deficits appreciated. Left foot MRI 1. Diffuse edema in the subcutaneous tissues of the foot most pronounced along the dorsal and lateral soft tissues of the mid and forefoot. Clinical correlation to exclude infection such as cellulitis suggested. 2. No abnormal marrow space signal demonstrated. No abnormal enhancement in the calcaneus or elsewhere in the osseous structures on post gadolinium imaging to suggest osteomyelitis. Electronically signed by: Albert Castellanos On 08/16/2018 19:20:52 PM A&P: The patient is a 68-year-old white female who presented to the emergency room (ER) for worsening left heel infection. She has a history of chronic wound Left pre tib area, she states this has been at baseline, has not seen Dr Ch for this issue for several months. She states in the last few weeks she has had a wound of her left heel which is getting worse gradually. The pt was admitted to the Hospitalist service and vascular surgery consulted related to her h/o PVD and LLE heel wound. 1. PAD. The pt is well known to Dr Durbin. D/W Dr Durbin. S/P Angiogram LLE 08/25/18 with plan for Angiogram with inte rvention 08/30/18. SCr 1.12 this AM. 2. Non heeling Left heel wound. S/P debridement as per Dr Durbin 08/20/18. No OM as per MRI. WC 08/20/18 Proteus. Contnue wound care with Dakin yao Wet to dry Q8hrs. Monitor. 3. Left foot cellulitis. Mgmt as per Medicine. S/P IV Vanco/Zosyn, now po Augmentin/Doxy. BC x 2 neg WC proteus/staph. DVT prophylaxis. SQ Heparin. VS, I&O, 24H, Fishbone Vital Signs/I&O Vital Signs Date Time Temp Pulse Resp B/P (MAP) Pulse Ox O2 Delivery O2 Flow Rate FiO2 08/29/18 08:54 150/74 08/29/18 06:00 97.5 5 20 9 I&O- Last 24 Hours up to 6 AM 08/29/18 06:00 Intake Total 1160 ml Output Total 1250 ml Balance -90 ml Laboratory Data 24H LABS Laboratory Tests 2 08/28/18 12:02: Bedside Glucose (Misc Panel) 150H 08/28/18 12:42: Bedside Glucose (Misc Panel) 147H 08/28/18 16:33: Bedside Glucose (Misc Panel) 137H 08/28/18 19:57: Bedside Glucose (Misc Panel) 140H 08/29/18 05:27: Bedside Glucose (Misc Panel) 103 08/29/18 05:57: Nucleated Red Blood Cells % (auto) 0.0, Anion Gap 7L, Glomerular Filtration Rate 51.5, Blood Urea Nitrogen 28H, Creatinine 1.12, Sodium Level 143, Potassium Level 4.2, Chloride Level 113H, Carbon Dioxide Level 23, Calcium Level 8.6L CBC/BMP Laboratory Tests 08/29/18 05:57 Red Blood Count 3.34 L, Mean Corpuscular Volume 93.4, Mean Corpuscular Hemoglobin 30.8, Mean Corpuscular Hemoglobin Concent 33.0, Red Cell Distribution Width 13.8, Calcium Level 8.6 L Microbiology Microbiology 08/22/18 Urine Culture - Final, Complete 08/20/18 Gram Stain - Final, Complete 08/20/18 Wound Culture - Final, Complete Proteus Mirabilis 08/20/18 Anaerobic Culture - Final, Complete Loren Bhatti Aug 29, 2018 10:55
[2018-08-29 14:00] VITALS: BP 182/84
--- NOTE | 2018-08-29 14:22 | IPNPDOC ---
Subjective Date Seen The patient was seen on 08/29/18. Subjective Chief Complaint/HPI patient being seen for PVD to left foot with cellulitis but no osteomyelitis, CKD, Diabetes. Wound culture shows proteus mirabilis. Dr Durbin - vascular consulted and possible intervention tomorrow. Patient states no fever, minimal foot pain, no CP, no SOB. Patient states she follows with Dr Hopson for nephrology but is not on dialysis. Objective Physical Examination General Exam: Positive: Alert, Cooperative, No Acute Distress Eye Exam: Positive: PERRLA ENT Exam: Positive: Mucous membr. moist/pink Chest Exam: Positive: Clear to auscultation, Normal air movement Heart Exam: Positive: Rate Normal, Regular Rhythm Abdomen Exam: Positive: Normal bowel sounds (obese, NT, ND) Extremity Exam: Positive: Other (Right BKA with no skin infection to stump; left pretib with scar tissue consistent with surgical history and prior wound infections; left foot/heel bandaged; toes warm with intact cap refill) Neuro Exam: Positive: Normal Speech Psych Exam: Positive: Mental status NL, Mood NL, Oriented x 3 Assessment /Plan Assessment 1) Left heel infected wound, MRI ruled out osteomyelitis - wound culture positive for Proteus and staph sp - day #9 s/p debridement; possible repeat debridement at end of week - continue Augmentin (Proteus) and Doxy (staph sp) - - Continue wound care with Dakin yao Wet to dry Q8hrs. - possible vascular surgery intervention tomorrow 2) PAD - s/p angiogram 08/27/18 - - follow as per vascular - assistance appreciated 3)Acute on CKD stage 3 - consult nephrology 4) positive UA without UTI symptoms - - already on Abx - UCx shows no growth 5) Diabetes on care home insulin, with hyperglycemia; A1c 7.3% will continue insulin; to promote healing, goal of BS under 180 6) left pre-tibia cellulitis/chronic wound, stable - continue with doxy/augmenti n Plan/VTE VTE Prophylaxis Ordered?: Yes Plan Activity: Encourage Ambulation Disposition ARU screen for possible discharge to rehab VS, I&O, 24H, Fishbone Vital Signs/I&O Vital Signs Date Time Temp Pulse Resp B/P (MAP) Pulse Ox O2 Delivery O2 Flow Rate FiO2 08/29/18 14:00 97.5 61 20 182/84 (116) 98 I&O- Last 24 Hours up to 6 AM 08/29/18 05:59 Intake Total 960 ml Output Total 1075 ml Balance -115 ml Laboratory Data 24H LABS Laboratory Tests 2 08/28/18 16:33: Bedside Glucose (Misc Panel) 137H 08/28/18 19:57: Bedside Glucose (Misc Panel) 140H 08/29/18 05:27: Bedside Glucose (Misc Panel) 103 08/29/18 05:57: Nucleated Red Blood Cells % (auto) 0.0, Anion Gap 7L, Glomerular Filtration Rate 51.5, Blood Urea Nitrogen 28H, Creatinine 1.12, Sodium Level 143, Potassium Level 4.2, Chloride Level 113H, Carbon Dioxide Level 23, Calcium Level 8.6L 08/29/18 11:27: Bedside Glucose (Misc Panel) 131H CBC/BMP Laboratory Tests 08/29/18 05:57 Red Blood Count 3.34 L, Mean Corpuscular Volume 93.4, Mean Corpuscular Hemoglobin 30.8, Mean Corpuscular Hemoglobin Concent 33.0, Red Cell Distribution Width 13.8, Calcium Level 8.6 L Microbiology Microbiology 08/22/18 Urine Culture - Final, Complete 08/20/18 Gram Stain - Final, Complete 08/20/18 Wound Culture - Final, Complete Proteus Mirabilis 08/20/18 Anaerobic Culture - Final, Complete NASIM SMITH DO Aug 29, 2018 14:20
[2018-08-29 15:06] VITALS: BP 144/78
[2018-08-29] MEDS: ASPIRIN ENTERIC 325 MG TAB PO SCH (20:46)
[2018-08-29] MEDS: ROSUVASTATIN 10 MG TAB (CRESTOR) PO SCH (20:46)
[2018-08-29] MEDS: ACETAMINOPHEN TAB 650MG DOSE (2X325MG) PO PRN (20:47)
[2018-08-29 22:00] VITALS: BP 148/78
[2018-08-30 06:00] VITALS: BP 128/68
[2018-08-30] MEDS: DAKIN'S 0.25% HALF-STRENGTH SOLN 480 ML TOP SCH ×3 (06:26→23:17)
[2018-08-30] MEDS: LEVOTHYROXINE 50MCG TABLET (0.05MG) PO SCH (06:26)
[2018-08-30 06:29] LABS: HEMATOCRIT 30.8 % (36.0-47.0); HEMOGLOBIN 10.1 g/dl (12.0-15.5); MEAN CORPUSCULAR HGB CONC 32.8 g/dl (32.0-36.5); MEAN CORPUSCULAR VOLUME 97.5 fl (80.0-96.0); PLATELET COUNT, AUTOMATED 281 10^3/uL (150-450); RED BLOOD COUNT 3.16 10^6/uL (4.00-5.40); WHITE BLOOD COUNT 8.5 10^3/uL (4.0-10.0)
[2018-08-30 06:55] LABS: CALCIUM LEVEL 8.3 MG/DL (8.8-10.2); CREATININE FOR GFR 1.18 MG/DL (0.55-1.30); GLOMERULAR FILTRATION RATE 48.5 (>45); POTASSIUM SERUM 4.2 MEQ/L (3.5-5.1)
[2018-08-30] MEDS: HumaLOG INSULIN (NovoLOG) PER UNIT SC SCH ×4 (07:30→20:57)
[2018-08-30] MEDS: DOXYCYCLINE HYCLATE 100 MG TAB PO SCH ×2 (08:22→20:56)
[2018-08-30] MEDS: **hydrALAZINE** 10 MG TAB PO SCH ×2 (08:22→20:56)
[2018-08-30] MEDS: VITAMIN D 1,000 INTERNATIONAL UNITS TABLET PO SCH (08:22)
[2018-08-30] MEDS: AUGMENTIN 500 MG TAB PO SCH ×2 (08:22→20:56)
[2018-08-30] MEDS: FERROUS GLUCONATE 324 MG TAB PO SCH (08:22)
[2018-08-30] MEDS: PENTOXIFYLLINE 400 MG TAB PO SCH (08:22)
[2018-08-30] MEDS: HEPARIN SOD (PORCINE) 5000 UNITS/ML VIAL SC SCH ×2 (08:23→20:57)
[2018-08-30] MEDS: MAGNESIUM GLUCONATE 500 MG TAB PO SCH (08:23)
[2018-08-30] MEDS: LEVEMIR (INSULIN DETEMIR) 1 UNITS/0.01ML SC SCH (08:23)
[2018-08-30] MEDS: DOCUSATE SODIUM 100 MG CAP PO SCH ×2 (08:23→20:56)
[2018-08-30] MEDS: BRIMONIDINE 0.15% OPHTH SOLN 5 ML OU SCH ×2 (08:24→20:57)
[2018-08-30] MEDS: TIMOLOL MALEATE 0.5% OPHTH SOLN 5 ML OU SCH ×2 (08:24→20:57)
[2018-08-30 09:39] LABS: MAGNESIUM LEVEL 1.9 MG/DL (1.8-2.4)
--- NOTE | 2018-08-30 09:55 | IPNPDOC ---
Date Seen The patient was seen on 08/30/18. Progress Note HPI: The patient is a 68-year-old white female who presented to the emergency room (ER) for worsening left heel infection. She has a history of chronic wound Left pre tib area, she states this has been at baseline, has not seen Dr Ch for this issue for several months. She states in the last few weeks she has had a wound of her left heel which is getting worse gradually. The pt was admitted to the Hospitalist service and vascular surgery consulted related to her h/o PVD and LLE heel wound. The pt is s/p Left heel wound debridement as per Dr Durbin 08/20/18. Denies any fevers, chills, weakness, fatigue, Headache, Chest Pain, Shortness of breath, cough, palpitations, abdominal pain, N/V/D or changes in bowel or bladder habits. PAST MEDICAL HISTORY: DM 2 Morbid obesity BMI 46.1 Peripheral Vascular disease Chronic right foot wound HLD HTN Hypothyroidism Cataracts CKD. Follows with Dr Hopson. PAST SURGICAL HISTORY: CATARACTS 03/2016 ANGIOPLASTY AND STENT LLE 2009 GALL BLADDER 2008 REVASCULARIZATION RIGHT LEG AUGUST 2017 RIGHT SECOND TOE AMPUTATION AUGUST 2017 Rt AKA 10/12. PE: GEN: 68yoF, appears stated age. Alert and oriented x 3. HEENT: Normocephalic, atraumatic. Conjunctiva without injection. Moist mucous membranes. CHEST: Regular rate and rhythm, +S1, +S2 LUNGS: Clear to auscultation bilaterally. No wheezes, rales, or rhonchi. ABD: Round, soft, non-tender, non-distended. +Bowel sounds throughout. EXT: Rt AKA. LLE with pretibial wound noted, Left foot is bandaged. NEURO: Alert and oriented x 3. No focal deficits appreciated. Left foot MRI 1. Diffuse edema in the subcutaneous tissues of the foot most pronounced along the dorsal and lateral soft tissues of the mid and forefoot. Clinical correlation to exclude infection such as cellulitis suggested. 2. No abnormal marrow space signal demonstrated. No abnormal enhancement in the calcaneus or elsewhere in the osseous structures on post gadolinium imaging to suggest osteomyelitis. Electronically signed by: Albert Castellanos On 08/16/2018 19:20:52 PM A&P: The patient is a 68-year-old white female who presented to the emergency room (ER) for worsening left heel infection. She has a history of chronic wound Left pre tib area, she states this has been at baseline, has not seen Dr Ch for this issue for several months. She states in the last few weeks she has had a wound of her left heel which is getting worse gradually. The pt was admitted to the Hospitalist service and vascular surgery consulted related to her h/o PVD and LLE heel wound. 1. PAD. The pt is well known to Dr Durbin. D/W Dr Durbin. S/P Angiogram LLE 08/25/18 with tentative plan for Angiogram with intervention 08/31/18 pending renal function. SCr 1.18, slightly increased. 2. Non heeling Left heel wound. S/P debridement as per Dr Durbin 08/20/18. No OM as per MRI. WC 08/20/18 Proteus. Contnue wound care with Dakin yao Wet to dry Q8hrs. Monitor. 3. Left foot cellulitis. Mgmt as per Medicine. S/P IV Vanco/Zosyn, now po Augmentin/Doxy. BC x 2 neg WC proteus/staph. DVT prophylaxis. SQ Heparin. VS, I&O, 24H, Fishbone Vital Signs/I&O Vital Signs Date Time Temp Pulse Resp B/P (MAP) Pulse Ox O2 Delivery O2 Flow Rate FiO2 08/30/18 08:22 130/82 08/30/18 06:00 96.9 62 14 95 I&O- Last 24 Hours up to 6 AM 08/30/18 06:00 Intake Total 990 ml Output Total 1025 ml Balance -35 ml Laboratory Data 24H LABS Laboratory Tests 2 08/29/18 11:27: Bedside Glucose (Misc Panel) 131H 08/29/18 16:41: Bedside Glucose (Misc Panel) 98 08/29/18 20:02: Bedside Glucose (Misc Panel) 181H 08/30/18 05:58: Nucleated Red Blood Cells % (auto) 0.0, Anion Gap 6L, Glomerular Filtration Rate 48.5, Blood Urea Nitrogen 28H, Creatinine 1.18, Sodium Level 144, Potassium Level 4.2, Chloride Level 114H, Carbon Dioxide Level 24, Calcium Level 8.3L, Magnesium Level 1.9 CBC/BMP Laboratory Tests 08/30/18 05:58 Red Blood Count 3.16 L, Mean Corpuscular Volume 97.5 H, Mean Corpuscular Hemoglobin 32.0, Mean Corpuscular Hemoglobin Concent 32.8, Red Cell Distribution Width 14.0, Calcium Level 8.3 L Microbiology Microbiology 08/22/18 Urine Culture - Final, Complete 08/20/18 Gram Stain - Final, Complete 08/20/18 Wound Culture - Final, Complete Proteus Mirabilis 08/20/18 Anaerobic Culture - Final, Complete Loren Bhatti Aug 30, 2018 09:55
--- NOTE | 2018-08-30 12:15 | IPNPDOC ---
Text Note Date of Service The patient was seen on 08/30/18. NOTE S: 68 yo femalle being seen for PVD to left foot with proteus mirabilis cellu litis but no osteomyelitis, CKD stage III, Diabetes. She is planning to have revascularization procedure today or tomorrow. She states no foot pain. is transfering from bed to chair with PT/OT. States no CP, no SOB, no N, no V, no diarrhea procedures during hospitalization: s/p Left heel wound debridement as per Dr Durbin 08/20/18. s/p Angiogram LLE as per Dr Durbin 08/25/18 Consultants: Dr Durbin - vascular; Dr Hopson- nephrology Current Medications Acetaminophen (Tylenol Tab) 650 mg Q4H PRN PO PAIN OR FEVER Last administered on 08/29/18 20:47; Start 08/16/18 at 16:00 Amoxicillin/ Clavulanate Potassium (Augmentin) 500 mg BID PO Last administered on 08/30/18 08:22; Start 08/21/18 at 21:00 Aspirin (Ecotrin) 650 mg QHS PO Last administered on 08/29/18 20:46; Start 08/16/18 at 21:00 Brimonidine Tartrate (Alphagan P 0.15%) 1 drop BID OU Last administered on 08:24; Start 08/16/18 at 21:00 Dextrose (Dextrose 50%) 25 ml ASDIRECTED PRN IV SEE LABEL COMMENTS; Start 08/16/18 at 17:00 Docusate Sodium (Colace) 100 mg BID PO Last administered on 08/29/18at 08:53; Start 08/16/18 at 21:00 Doxycycline Hyclate (Vibramycin) 100 mg BID PO Last administered on 08/30/18 08:22; Start 08/21/18 at 09:00 Ferrous Gluconate (Fergon) 324 mg DAILY PO Last administered on 08/30/18 08:22; Start 08/17/18 at 09:00 Heparin Sodium (Porcine) (Heparin) 5,000 units Q12H SC Last administered on 08/30/18 08:23; Start 08/16/18 at 21:00 Home Med (Med Rec Complete!) ASDIRECTED XX ; Start 08/16/18 at 14:45; Stop 08/16/18 at 15:08; Status DC Hydralazine HCl (Apresoline) 10 mg BID PO Last administered on 08/30/18 08:22; Start 08/16/18 at 21:00 Insulin Detemir (Levemir Insulin) 40 units DAILY SC Last administered on 08/30/18 08:23; Start 08/17/18 at 09:00 Insulin Human Lispro (HumaLOG INSULIN) See Protocol Table AC SC Last administered on 08/29/18at 12:09; Start 08/16/18 at 17:30 Insulin Human Lispro (HumaLOG INSULIN) See Protocol Table QHS SC ; Start 08/16/18 at 21:00 Levothyroxine Sodium (Synthroid) 50 mcg DAILY@0600 PO Last administered on 08/30/18 06:26; Start 08/17/18 at 06:00 Magnesium Gluconate (Magnesium Gluconate) 250 mg DAILY PO Last administered on 08/26/18 09:16; Start 08/17/18 at 09:00 Magnesium Hydroxide (Milk Of Magnesia) 30 ml DAILY PRN PO CONSTIPATION; Start 08/16/18 at 16:00 Oxycodone/ Acetaminophen (Percocet 5mg/ 325mg Tablet) 1 tab Q4HP PRN PO MILD/MODERATE PAIN (PS 1-7) Last administered on 08/26/18 06:13; Start 08/17/18 at 13:30 Pentoxifylline (TRENtal) 400 mg DAILY PO Last administered on 08/30/18 08:22; Start 08/17/18 at 09:00 Rosuvastatin Calcium (Crestor) 5 mg QHS PO Last administered on 08/29/18 20:46; Start 08/16/18 at 21:00 Sodium Hypochlorite (Dakin'S Solution) L foot dakins wet to ... Q8H TOP Last administered on 08/30/18 06:26; Start 08/23/18 at 06:00 Timolol Maleate (Timoptic 0.5% Ophth Araceli) 1 drop BID OU Last administered on 08/30/18 08:24; Start 08/16/18 at 21:00 Vitamin D (Vitamin D) 2,000 units DAILY PO Last administered on 08/30/18 08:22; Start 08/17/18 at 09:00 O: Vitals as below Physical exam: General: pleasant, NAD, AAOx3, sitting in chair Heart - jeremie/regular, no murmur LCTA no W/R/R Abdomen : obese, soft NT ND NABS Ext: right BKA, left foot recently bandaged/dressing change (nurses will call me to view foot this afternoon at next dressing change). left pretibia without cellulitis, scar tissue consistent with surgical history A/P: 1) Left heel infected wound, MRI ruled out osteomyelitis - wound culture positive for Proteus and staph sp - continue Augmentin (Proteus) and Doxy (staph sp) - - Continue wound care with Dakin araceli Wet to dry Q8hrs. - s/p Left heel wound debridement as per Dr Durbin 08/20/18. - s/p Angiogram LLE as per Dr Durbin 08/25/18 - possible revascularization procedure today or tomorrow 2) PAD - follow as per vascular - assistance appreciated 3)Acute on CKD stage 3 - consult nephrology 4) positive UA without UTI symptoms - - already on Abx - UCx shows no growth 5) Diabetes on correction insulin, with hyperglycemia; A1c 7.3% will continue insulin; to promote healing, goal of BS under 180 Disposition: anticipate discharge 24 hours after vascular procedure with home health for dressing changes VS,Karo, I+O VS, Karo, I+O Laboratory Tests 08/30/18 05:58 Red Blood Count 3.16 L, Mean Corpuscular Volume 97.5 H, Mean Corpuscular Hemoglobin 32.0, Mean Corpuscular Hemoglobin Concent 32.8, Red Cell Distribution Width 14.0, Calcium Level 8.3 L Vital Signs Date Time Temp Pulse Resp B/P (MAP) Pulse Ox O2 Delivery O2 Flow Rate FiO2 08/30/18 08:22 130/82 08/30/18 06:00 96.9 62 14 95 I&O- Last 24 Hours up to 6 AM 08/30/18 05:59 Intake Total 1190 ml Output Total 1425 ml Balance -235 ml NASIM SMITH DO Aug 30, 2018 11:44
--- NOTE | 2018-08-30 13:02 | CR ---
DATE OF CONSULTATION: 08/30/2018 REQUESTING PHYSICIAN: Dr. Susie Burton REASON FOR CONSULTATION: Chronic kidney disease (CKD) stage II and necessitation of contrast procedures. HISTORY OF PRESENT ILLNESS: Anu Kohler is a 68-year-old female who is an established office patient of Dr. Farrah Hopson with known CKD stage III with a baseline creatinine in the low 1's and also a past medical history of type 2 diabetes, hypertension, dyslipidemia, obesity, peripheral vascular disease, anemia and hypothyroidism. The patient was admitted on August 16 for a worsening infection in the left lower extremity and heel. She has history of right lower extremity [id number] amputation done last year and she has had a chronic wound on her left lower extremity. She is seeing Dr. Durbin for her vascular disease and had an angiogram on Tuesday of last week. She needs further angiogram and a nephrology consultation is requested for management of her renal function in the benito contrast period. PAST MEDICAL HISTORY: As mentioned above. Obesity. Type 2 diabetes, insulin dependent. CKD stage III, baseline creatinine low 1's. Hypertension. Dyslipidemia. Peripheral vascular disease. Hypothyroidism. PAST SURGICAL HISTORY: Right [id number] amputation. Status post cholecystectomy. Cataract surgery. ALLERGIES: She is allergic to PLAVIX. SOCIAL HISTORY: Denies tobacco use. Denies alcohol abuse. Denies illicit drugs. Lives with her . FAMILY HISTORY: Cancer in her mother. HOME MEDICATIONS: Reviewed and include amlodipine, aspirin, vitamin D3, ferrous gluconate, furosemide, hydralazine, insulin, levothyroxine, magnesium, pentoxifylline, rosuvastatin, potassium. REVIEW OF SYSTEMS: CONSTITUTIONAL: She denies fevers or chills. EYES: She denies visual changes or tearing. ENT: She denies rhinorrhea or tinnitus. CARDIAC: She denies chest pain. She has a history of peripheral vascular disease. RESPIRATORY: She denies shortness of breath or cough. GASTROINTESTINAL: She denies nausea, vomiting or diarrhea. GENITOURINARY: She denies dysuria or hematuria. MUSCULOSKELETAL: She reports right [id number] amputation and chronic and worsening left lower extremity wound. ENDOCRINE: She reports insulin dependent diabetes and hypothyroidism. HEMATOLOGIC: She reports anemia. She denies easy bleeding or bruising. NEUROLOGIC: She denies seizure or syncope. PSYCHIATRIC: She denies depression or anxiety. PHYSICAL EXAMINATION: VITAL SIGNS: Temperature 96.9, pulse 62, respiratory rate 14, blood pressure 128/68, saturating 95% on room air. Intake yesterday was 1200 mL. Urine output yesterday was 1300 mL. There is no there is no weight recorded on the bed scale. GENERAL: The patient is seen sitting out of bed to the wheelchair, elderly female, appears stated age, awake, alert and oriented times three, conversational. No acute distress. Extraocular muscles are intact. Tongue is moist. Neck is supple. Jugular veins were not elevated. Cardiac: S1-S2 regular rate and rhythm. Lungs are clear to auscultation bilaterally. No crackles, rales or wheeze. The abdomen is soft and obese. It is nontender. The extremities show a right xysrw-swu-[id number] amputation and the left lower extremity has a large pretibial wound. The left foot is bandaged and dressed. Neurologic: She is oriented times three. No focal deficits. There is no significant edema in the peripheries or in the dependent areas. LABS: White count 8.5, hemoglobin 10.1, sodium 144, potassium 4.2, bicarbonate 24, BUN 28, creatinine 1.1. INPATIENT MEDICATIONS: Reviewed by myself. - Augmentin 500 mg p.o. b.i.d. - aspirin 650 mg p.o. q.h.s. - docusate 100 mg p.o. b.i.d. - doxycycline 100 mg p.o. b.i.d. - ferrous gluconate 324 mg p.o. daily - heparin 5000 units subcu q. 12 hours - hydralazine 10 mg p.o. b.i.d. - insulin - levothyroxine 50 mcg p.o. daily - magnesium gluconate 250 mg p.o. daily - pentoxifylline 400 mg p.o. daily - Percocet p.r.n. - rosuvastatin 5 mg p.o. q.h.s. - vitamin D 2000 units p.o. daily PROBLEMS: 1. CKD stage III. The patient's creatinine over the past one week has been around 1.0 to 1.2, which is her baseline renal function. Her last contrast procedure was on August 25, which she tolerated well without adverse renal affects. Her volume status is acceptable. Her electrolytes are acceptable. Given that her renal function is at baseline and that several days have elapsed since her last contrast procedure. She is acceptable to proceed at this time for a angiogram and I have discussed the same with vascular surgery. We will give gentle IV fluids for 12 hours post contrast if she receives a significant volume of dye. 2. Hypertension. Blood pressures are acceptable. Systolic is 120s to 140s, and no change is being made to her current antihypertensives. 3. Peripheral arterial disease with left lower extremity worsening wound status post angiogram on 08/25 with plan for repeat angiogram on August 31. If creatinine remains 1.2 or better, she is acceptable to proceed with contrast study and the patient is aware of the risks of dye nephropathy. Thank you for involving me in the care Ms. Kohler. I will be happy to follow her along with you.
[2018-08-30 14:00] VITALS: BP 148/73
[2018-08-30] MEDS: ASPIRIN ENTERIC 325 MG TAB PO SCH (20:56)
[2018-08-30] MEDS: ROSUVASTATIN 10 MG TAB (CRESTOR) PO SCH (20:56)
[2018-08-30 22:00] VITALS: BP 144/80
[2018-08-31 06:00] VITALS: BP 149/79
[2018-08-31 06:24] LABS: HEMATOCRIT 30.3 % (36.0-47.0); HEMOGLOBIN 9.8 g/dl (12.0-15.5); MEAN CORPUSCULAR HEMOGLOBIN 30.6 pg (27.0-33.0); MEAN CORPUSCULAR HGB CONC 32.3 g/dl (32.0-36.5); MEAN CORPUSCULAR VOLUME 94.7 fl (80.0-96.0); PLATELET COUNT, AUTOMATED 278 10^3/uL (150-450); WHITE BLOOD COUNT 7.7 10^3/uL (4.0-10.0)
[2018-08-31] MEDS: LEVOTHYROXINE 50MCG TABLET (0.05MG) PO SCH (06:40)
[2018-08-31] MEDS: DAKIN'S 0.25% HALF-STRENGTH SOLN 480 ML TOP SCH ×3 (06:40→22:35)
[2018-08-31 06:47] LABS: CALCIUM LEVEL 8.1 MG/DL (8.8-10.2); CREATININE FOR GFR 1.08 MG/DL (0.55-1.30); GLOMERULAR FILTRATION RATE 53.7 (>45); POTASSIUM SERUM 3.9 MEQ/L (3.5-5.1)
[2018-08-31] MEDS: HumaLOG INSULIN (NovoLOG) PER UNIT SC SCH ×4 (07:13→21:00)
[2018-08-31] MEDS: LEVEMIR (INSULIN DETEMIR) 1 UNITS/0.01ML SC SCH (08:15)
[2018-08-31] MEDS: PENTOXIFYLLINE 400 MG TAB PO SCH (08:16)
[2018-08-31] MEDS: HEPARIN SOD (PORCINE) 5000 UNITS/ML VIAL SC SCH ×2 (08:16→22:36)
[2018-08-31] MEDS: VITAMIN D 1,000 INTERNATIONAL UNITS TABLET PO SCH (08:16)
[2018-08-31] MEDS: DOXYCYCLINE HYCLATE 100 MG TAB PO SCH ×2 (08:16→22:35)
[2018-08-31] MEDS: **hydrALAZINE** 10 MG TAB PO SCH ×2 (08:17→22:36)
[2018-08-31] MEDS: TIMOLOL MALEATE 0.5% OPHTH SOLN 5 ML OU SCH ×2 (08:17→22:36)
[2018-08-31] MEDS: BRIMONIDINE 0.15% OPHTH SOLN 5 ML OU SCH ×2 (08:17→22:36)
[2018-08-31] MEDS: DOCUSATE SODIUM 100 MG CAP PO SCH ×2 (08:17→22:35)
[2018-08-31] MEDS: MAGNESIUM GLUCONATE 500 MG TAB PO SCH (08:17)
[2018-08-31] MEDS: AUGMENTIN 500 MG TAB PO SCH ×2 (08:17→22:35)
[2018-08-31] MEDS: FERROUS GLUCONATE 324 MG TAB PO SCH (08:17)
--- NOTE | 2018-08-31 09:00 | IPNPDOC ---
Date Seen The patient was seen on 08/31/18. Progress Note HPI: The patient is a 68-year-old white female who presented to the emergency room (ER) for worsening left heel infection. She has a history of chronic wound Left pre tib area, she states this has been at baseline, has not seen Dr Ch for this issue for several months. She states in the last few weeks she has had a wound of her left heel which is getting worse gradually. The pt was admitted to the Hospitalist service and vascular surgery consulted related to her h/o PVD and LLE heel wound. The pt is s/p Left heel wound debridement as per Dr Durbin 08/20/18. Denies any fevers, chills, weakness, fatigue, Headache, Chest Pain, Shortness of breath, cough, palpitations, abdominal pain, N/V/D or changes in bowel or bladder habits. PAST MEDICAL HISTORY: DM 2 Morbid obesity BMI 46.1 Peripheral Vascular disease Chronic right foot wound HLD HTN Hypothyroidism Cataracts CKD. Follows with Dr Hopson. PAST SURGICAL HISTORY: CATARACTS 03/2016 ANGIOPLASTY AND STENT LLE 2009 GALL BLADDER 2008 REVASCULARIZATION RIGHT LEG AUGUST 2017 RIGHT SECOND TOE AMPUTATION AUGUST 2017 Rt AKA 10/12. PE: GEN: 68yoF, appears stated age. Alert and oriented x 3. HEENT: Normocephalic, atraumatic. Conjunctiva without injection. Moist mucous membranes. CHEST: Regular rate and rhythm, +S1, +S2 LUNGS: Clear to auscultation bilaterally. No wheezes, rales, or rhonchi. ABD: Round, soft, non-tender, non-distended. +Bowel sounds throughout. EXT: Rt AKA. LLE with pretibial wound noted, Left foot is bandaged. NEURO: Alert and oriented x 3. No focal deficits appreciated. Left foot MRI 1. Diffuse edema in the subcutaneous tissues of the foot most pronounced along the dorsal and lateral soft tissues of the mid and forefoot. Clinical correlation to exclude infection such as cellulitis suggested. 2. No abnormal marrow space signal demonstrated. No abnormal enhancement in the calcaneus or elsewhere in the osseous structures on post gadolinium imaging to suggest osteomyelitis. Electronically signed by: Albert Castellanos On 08/16/2018 19:20:52 PM A&P: The patient is a 68-year-old white female who presented to the emergency room (ER) for worsening left heel infection. She has a history of chronic wound Left pre tib area, she states this has been at baseline, has not seen Dr Ch for this issue for several months. She states in the last few weeks she has had a wound of her left heel which is getting worse gradually. The pt was admitted to the Hospitalist service and vascular surgery consulted related to her h/o PVD and LLE heel wound. 1. PAD. The pt is well known to Dr Durbin. D/W Dr Durbin. S/P Angiogram LLE 08/25/18 with tentative plan for Angiogram with possible intervention today. SCr 1.08. 2. Non heeling Left heel wound. S/P debridement as per Dr Durbin 08/20/18. No OM as per MRI. WC 08/20/18 Proteus. Contnue wound care with Dakin yao Wet to dry Q8hrs. Monitor. 3. Left foot cellulitis. Mgmt as per Medicine. S/P IV Vanco/Zosyn, now po Augmentin/Doxy. BC x 2 neg WC proteus/staph. DVT prophylaxis. SQ Heparin. VS, I&O, 24H, Fishbone Vital Signs/I&O Vital Signs Date Time Temp Pulse Resp B/P (MAP) Pulse Ox O2 Delivery O2 Flow Rate FiO2 08/31/18 08:17 142/80 08/31/18 06:00 97.3 65 20 93 I&O- Last 24 Hours up to 6 AM 08/31/18 06:00 Intake Total 1050 ml Output Total 1250 ml Balance -200 ml Laboratory Data 24H LABS Laboratory Tests 2 08/30/18 12:14: Bedside Glucose (Misc Panel) 138H 08/30/18 16:54: Bedside Glucose (Misc Panel) 120H 08/30/18 20:29: Bedside Glucose (Misc Panel) 115 08/31/18 06:04: Nucleated Red Blood Cells % (auto) 0.0, Anion Gap 8, Glomerular Filtration Rate 53.7, Blood Urea Nitrogen 26H, Creatinine 1.08, Sodium Level 142, Potassium Level 3.9, Chloride Level 112H, Carbon Dioxide Level 22, Calcium Level 8.1L CBC/BMP Laboratory Tests 08/31/18 06:04 Red Blood Count 3.20 L, Mean Corpuscular Volume 94.7, Mean Corpuscular Hemoglobin 30.6, Mean Corpuscular Hemoglobin Concent 32.3, Red Cell Distribution Width 14.0, Calcium Level 8.1 L Microbiology Microbiology 08/22/18 Urine Culture - Final, Complete Loren Bhatti Aug 31, 2018 09:00
[2018-08-31] MEDS ORDERED: diphenhydrAMINE INJ 50MG/ML VIAL (J1200) As Ordered ONE (10:13)
[2018-08-31] MEDS ORDERED: fentaNYL 100 MCG/2 ML INJECTION (J3010) As Ordered ONE (10:14)
[2018-08-31] MEDS ORDERED: BUPIVACAINE HCL 0.5% 10 ML VIAL As Ordered ONE (10:14)
[2018-08-31] MEDS ORDERED: PROTAMINE SULF INJ 50 MG/5 ML VIAL (J2720) As Ordered ONE (10:14)
[2018-08-31] MEDS ORDERED: MIDAZOLAM INJ 2 MG/2 ML VIAL (J2250) As Ordered ONE (10:15)
[2018-08-31] MEDS ORDERED: ISOVUE-300 61% 50ML VIAL (Q9967) As Ordered ONE (10:15)
[2018-08-31] MEDS ORDERED: LIDOCAINE 2% MDV 20 ML VIAL As Ordered ONE (10:15)
[2018-08-31] MEDS ORDERED: HEPARIN 1,000 UNITS/ML 10ML VIAL (FOR RADIOLOGY& DIALYSIS ONLY) As Ordered ONE (10:15)
[2018-08-31] MEDS ORDERED: SODIUM BICARBONATE 75 MEQ in NS 0.45% 1,000 ML IV SCH (12:00)
[2018-08-31 13:30] VITALS: BP 152/85
[2018-08-31 14:00] VITALS: BP 162/85
[2018-08-31 15:00] VITALS: BP 163/68
[2018-08-31] MEDS ORDERED: NS 1,000 ML IV SCH (15:30)
[2018-08-31 16:00] VITALS: BP 160/71
[2018-08-31 22:00] VITALS: BP 168/74
[2018-08-31] MEDS: ASPIRIN ENTERIC 325 MG TAB PO SCH (22:35)
[2018-08-31] MEDS: ROSUVASTATIN 10 MG TAB (CRESTOR) PO SCH (22:35)
[2018-09-01 02:00] VITALS: BP 167/58
[2018-09-01] MEDS: DAKIN'S 0.25% HALF-STRENGTH SOLN 480 ML TOP SCH ×2 (05:55→14:05)
[2018-09-01] MEDS: LEVOTHYROXINE 50MCG TABLET (0.05MG) PO SCH (05:55)
[2018-09-01 06:00] VITALS: BP 170/82
[2018-09-01 06:08] LABS: HEMATOCRIT 31.5 % (36.0-47.0); HEMOGLOBIN 10.1 g/dl (12.0-15.5); MEAN CORPUSCULAR HEMOGLOBIN 30.6 pg (27.0-33.0); MEAN CORPUSCULAR HGB CONC 32.1 g/dl (32.0-36.5); MEAN CORPUSCULAR VOLUME 95.5 fl (80.0-96.0); PLATELET COUNT, AUTOMATED 269 10^3/uL (150-450); WHITE BLOOD COUNT 8.7 10^3/uL (4.0-10.0)
[2018-09-01 06:27] LABS: CREATININE FOR GFR 1.09 MG/DL (0.55-1.30); GLOMERULAR FILTRATION RATE 53.1 (>45); POTASSIUM SERUM 4.3 MEQ/L (3.5-5.1)
--- NOTE | 2018-09-01 07:08 | IPN ---
DATE OF SERVICE: 08/31/2018 SUBJECTIVE: The patient was briefly seen prior to going down for her angiogram for which she is nothing by mouth (n.p.o.). Orders for gentle IV fluids for 12 hours post angiogram have been discussed with the nursing staff. There are no new complaints reported. Vital Signs: Temperature 97.3, pulse 65, respiratory rate 20, blood pressure 149/79, saturating 93% on room air. Intake yesterday was 1050, urine output yesterday was 1175. Weight in the bed scale today is not recorded. General: This patient is awake and alert, oriented times three, in no acute distress. Moist mucous membranes. Neck is supple. Jugular veins were not elevated. Cardiac: S1 and S2, regular rate and rhythm. Lungs are clear to auscultation bilaterally. Abdomen is soft and obese, nontender. Extremities show right [id number] amputation and left lower extremity with pretibial wound and bandaged foot. LABORATORY DATA: Sodium 142, potassium 3.9, bicarbonate 22, BUN 26, creatinine 1.0, hemoglobin 9.8. INPATIENT MEDICATIONS: The patient was ordered for half NS with 75 mEq of sodium bicarbonate to run at 50 mL an hour for 12 hours. Remainder of medications are unchanged from prior. PROBLEMS: 1. Chronic kidney disease (CKD) stage 3. The patient's renal function is at baseline, creatinine is 1.0 today. Her last contrast procedure was on August 25, which she tolerated well without adverse renal effects. About a week has elapsed. Her volume status is acceptable. Electrolytes are acceptable. Renal function is at baseline. She is optimized for another contrast procedure. She is pending angiogram today. Minimal amount of dye will be used as needed and orders have been written for IV fluids for 12 hours post contrast exposure and liberal oral fluid intake is encouraged for 24 hours post procedure. 2. Hypertension. Blood pressures are acceptable. No changes are being made to the current regimen. She should stay off of NOE inhibitor or angiotensin receptive nisreen while she is receiving contrast based procedures. 3. Peripheral arterial disease with left lower extremity worsening wound, status post angiogram August 25 and the plan for repeat angiogram today. We will continue to monitor her renal panel for any signs of dye induced nephropathy. She is acceptable to proceed with contrast study at present.
[2018-09-01 07:50] VITALS: BP 126/61
--- NOTE | 2018-09-01 08:34 | IPNPDOC ---
Date Seen The patient was seen on 09/01/18. Progress Note HPI: The patient is a 68-year-old white female who presented to the emergency room (ER) for worsening left heel infection. She has a history of chronic wound Left pre tib area, she states this has been at baseline, has not seen Dr Ch for this issue for several months. She states in the last few weeks she has had a wound of her left heel which is getting worse gradually. The pt was admitted to the Hospitalist service and vascular surgery consulted related to her h/o PVD and LLE heel wound. The pt is s/p Left heel wound debridement as per Dr Durbin 08/20/18. S/P LLE angiogram as per Dr Durbin 08/31/18. Pt is anticipating d/c today. Denies any fevers, chills, weakness, fatigue, Headache, Chest Pain, Shortness of breath, cough, palpitations, abdominal pain, N/V/D or changes in bowel or bladder habits. PAST MEDICAL HISTORY: DM 2 Morbid obesity BMI 46.1 Peripheral Vascular disease Chronic right foot wound HLD HTN Hypothyroidism Cataracts CKD. Follows with Dr Hopson. PAST SURGICAL HISTORY: CATARACTS 03/2016 ANGIOPLASTY AND STENT LLE 2009 GALL BLADDER 2008 REVASCULARIZATION RIGHT LEG AUGUST 2017 RIGHT SECOND TOE AMPUTATION AUGUST 2017 Rt AKA 10/12. PE: GEN: 68yoF, appears stated age. Alert and oriented x 3. HEENT: Normocephalic, atraumatic. Conjunctiva without injection. Moist mucous membranes. CHEST: Regular rate and rhythm, +S1, +S2 LUNGS: Clear to auscultation bilaterally. No wheezes, rales, or rhonchi. ABD: Round, soft, non-tender, non-distended. EXT: Rt AKA. LLE with pretibial wound noted, Left foot is bandaged. NEURO: Alert and oriented x 3. No focal deficits appreciated. Left foot MRI 1. Diffuse edema in the subcutaneous tissues of the foot most pronounced along the dorsal and lateral soft tissues of the mid and forefoot. Clinical correlation to exclude infection such as cellulitis suggested. 2. No abnormal marrow space signal demonstrated. No abnormal enhancement in the calcaneus or elsewhere in the osseous structures on post gadolinium imaging to suggest osteomyelitis. Electronically signed by: Albert Castellanos On 08/16/2018 19:20:52 PM A&P: The patient is a 68-year-old white female who presented to the emergency room (ER) for worsening left heel infection. She has a history of chronic wound Left pre tib area, she states this has been at baseline, has not seen Dr Ch for this issue for several months. She states in the last few weeks she has had a wound of her left heel which is getting worse gradually. The pt was admitted to the Hospitalist service and vascular surgery consulted related to her h/o PVD and LLE heel wound. 1. PAD. The pt is well known to Dr Durbin. S/P Angiogram LLE 08/25/18 repeat Angiogram 08/31/18 with Stent x 2 LLE. SCr 1.09. 2. Non heeling Left heel wound. S/P debridement as per Dr Durbin 08/20/18. No OM as per MRI. WC 08/20/18 Proteus. Contnue wound care/home care, plan for foam dressing. Arrange outpt FU with Dr Ch for cont'd wound mgmt. Monitor. 3. Left foot cellulitis. Mgmt as per Medicine. S/P IV Vanco/Zosyn, now po Augmentin/Doxy. BC x 2 neg WC proteus/staph. DVT prophylaxis. SQ Heparin. VS, I&O, 24H, Fishbone Vital Signs/I&O Vital Signs Date Time Temp Pulse Resp B/P (MAP) Pulse Ox O2 Delivery O2 Flow Rate FiO2 09/01/18 06:00 98.0 71 17 170/82 (111) 95 I&O- Last 24 Hours up to 6 AM 09/01/18 06:00 Intake Total 450 ml Output Total 1270 ml Balance -820 ml Laboratory Data 24H LABS Laboratory Tests 2 08/31/18 17:06: Bedside Glucose (Misc Panel) 73L 08/31/18 19:47: Bedside Glucose (Misc Panel) 154H 09/01/18 05:13: Nucleated Red Blood Cells % (auto) 0.0, Anion Gap 7L, Glomerular Filtration Rate 53.1, Blood Urea Nitrogen 26H, Creatinine 1.09, Sodium Level 143, Potassium Level 4.3, Chloride Level 111H, Carbon Dioxide Level 25, Calcium Level 8.0L CBC/BMP Laboratory Tests 09/01/18 05:13 Red Blood Count 3.30 L, Mean Corpuscular Volume 95.5, Mean Corpuscular Hemoglobin 30.6, Mean Corpuscular Hemoglobin Concent 32.1, Red Cell Distribution Width 14.1, Calcium Level 8.0 L Microbiology Microbiology 08/22/18 Urine Culture - Final, Complete Loren Bhatti Sep 01, 2018 08:34
[2018-09-01] MEDS: HumaLOG INSULIN (NovoLOG) PER UNIT SC SCH ×2 (08:40→11:43)
[2018-09-01] MEDS: HEPARIN SOD (PORCINE) 5000 UNITS/ML VIAL SC SCH (08:41)
[2018-09-01] MEDS: AUGMENTIN 500 MG TAB PO SCH (08:41)
[2018-09-01] MEDS: LEVEMIR (INSULIN DETEMIR) 1 UNITS/0.01ML SC SCH (08:41)
[2018-09-01] MEDS: DOCUSATE SODIUM 100 MG CAP PO SCH (08:45)
[2018-09-01] MEDS: FERROUS GLUCONATE 324 MG TAB PO SCH (08:45)
[2018-09-01] MEDS: DOXYCYCLINE HYCLATE 100 MG TAB PO SCH (08:45)
[2018-09-01] MEDS: **hydrALAZINE** 10 MG TAB PO SCH (08:45)
[2018-09-01] MEDS: BRIMONIDINE 0.15% OPHTH SOLN 5 ML OU SCH (08:46)
[2018-09-01] MEDS: TIMOLOL MALEATE 0.5% OPHTH SOLN 5 ML OU SCH (08:46)
[2018-09-01] MEDS: PENTOXIFYLLINE 400 MG TAB PO SCH (08:48)
[2018-09-01] MEDS: VITAMIN D 1,000 INTERNATIONAL UNITS TABLET PO SCH (08:48)
[2018-09-01] MEDS: MAGNESIUM GLUCONATE 500 MG TAB PO SCH (08:48)
[2018-09-01] MEDS ORDERED: amLODIPine 5 MG TAB PO SCH (09:00)
[2018-09-01 11:35] VITALS: BP 142/72
[2018-09-01 12:46] VITALS: BP 158/84
[2018-09-01] MEDS ORDERED: DOXY100T PO (12:49)
[2018-09-01] MEDS ORDERED: PERCOCET PO (12:49)
[2018-09-01] MEDS ORDERED: AMOX500T2 PO (12:49)
--- NOTE | 2018-09-01 13:08 | DS.PDOC ---
Discharge Summary General Date of Admission August 16, 2018 at 15:58 Date of Discharge 09/01/18 Primary Care Physician: Severiano Gay MD [facility] Attending Physician: NASIM SMITH DO Specialist/Consultants Involve: Cal Durbin MD Specialist/Consultants Involve Dr Hopson Discharge Summary PROCEDURES PERFORMED DURING STAY: s/p Left heel wound debridement as per Dr Durbin 08/20/18. s/p Angiogram LLE as per Dr Durbin 08/25/18 S/P angiogram with 2 stents placed 08/31/18 Consultants: Dr Durbin - vascular; Dr Hopson- nephrology ADMITTING DIAGNOSES: 1. left heel cellulitis 2. DM 3. HTN 4. Hyperlipidemia 5. CKD III 6. PVD DISCHARGE DIAGNOSES: 1) Left heel Cellulitis with Proteus and Staph Sp 2) PAD 3)Acute on CKD stage 3 4) positive UA without UTI symptoms -present on admission 5) Diabetes on skilled nursing insulin, with hyperglycemia; COMPLICATIONS/CHIEF COMPLAINT: Diabetic Infectionlt Foot. HISTORY OF PRESENT ILLNESS: According to H&P, " The patient is a 68-year-old white female with history of diabetes who presented to the emergency room (ER) for worsening left heel infection. Thy history is provided by herself as well as by review of the chart. Per the patient, she had a history of right lower extremity infection and had an above-knee amputation (AKA) done last year. She has chronic wound infection in her left lower extremity. For now, she is following up with wound care center. Her current wound actually is healing pretty well. Also, she is followed with Dr. Durbin for possible peripheral vascular disease. She states in the last few weeks she has an infection in her left heel which is getting worse gradually. However, she did not receive any antibiotic treatment so far. Today, she went to see her merchandise execution leader, Dr. Esquivel, and was referred to the ER for further evaluation. Otherwise, she denies any fever. No chills. No other symptoms. In the ER, she was given IV antibiotics. Meanwhile, medicine service called for the admission." HOSPITAL COURSE: admitted. osteomyleitis ruled OUT with MRI. Patient initially on vanc/zosyn. Wound culture positive for Proteus and staph sp and changed to augumentin/doxycycline. wound dressed with dakin wet to dry and pateint had Left heel wound debridement as per Dr Durbin 08/20/18, s/p Angiogram LLE as per Dr Durbin 08/25/18 and 2 stents placed on 08/31/18. Nephrology consulted and renal function was preserved post angiogram. DISCHARGE MEDICATIONS: Please see below. ALLERGIES: Please see below. PHYSICAL EXAMINATION ON DISCHARGE: VITAL SIGNS: Please see below. General: pleasant, NAD, AAOx3 HRRR LCTA no W/R/R Abdomen: soft Obese NT ND Ext : right BKA, Left foot bandage intact LABORATORY DATA: Please see below. PROGNOSIS: good ACTIVITY: as tolerated DIET: diabetic DISCHARGE PLAN: discharge home F/U with PCP in 5-7 days F/U with Dr Durbin in 1 month F/U with Nephrology in 1-2 weeks Arterial ultrasound left leg in 1 month home health for dressing changes DISCHARGE CONDITION: stable TIME SPENT ON DISCHARGE: 42 minutes. Vital Signs/I&Os Vital Signs Date Time Temp Pulse Resp B/P (MAP) Pulse Ox O2 Delivery O2 Flow Rate FiO2 09/01/18 12:46 76 158/84 09/01/18 06:00 98.0 17 95 I&O- Last 24 Hours up to 6 AM 09/01/18 06:00 Intake Total 450 ml Output Total 1270 ml Balance -820 ml Laboratory Data Labs 24H Laboratory Tests 2 08/31/18 17:06: Bedside Glucose (Misc Panel) 73L 08/31/18 19:47: Bedside Glucose (Misc Panel) 154H 09/01/18 05:13: Nucleated Red Blood Cells % (auto) 0.0, Anion Gap 7L, Glomerular Filtration Rate 53.1, Blood Urea Nitrogen 26H, Creatinine 1.09, Sodium Level 143, Potassium Level 4.3, Chloride Level 111H, Carbon Dioxide Level 25, Calcium Level 8.0L 09/01/18 11:31: Bedside Glucose (Misc Panel) 172H CBC/BMP Laboratory Tests 09/01/18 05:13 Red Blood Count 3.30 L, Mean Corpuscular Volume 95.5, Mean Corpuscular Hemoglobin 30.6, Mean Corpuscular Hemoglobin Concent 32.1, Red Cell Distribution Width 14.1, Calcium Level 8.0 L FSBS Laboratory Tests Test 08/31/18 17:06 08/31/18 19:47 09/01/18 11:31 Range/Units Bedside Glucose (Misc Panel) 73 154 172 80-115 MG/DL Microbiology Microbiology 08/22/18 Urine Culture - Final, Complete Discharge Medications Scheduled Amlodipine Besylate (Amlodipine Besylate) 5 Mg Tablet, 5 MG PO DAILY, (Reported) Amoxicillin/Potassium Clav (Amox-Clav 500-125 mg Tablet) 1 Each Tablet, 500 MG PO BID Aspirin (Aspirin EC) 325 Mg Tabec, 650 MG PO QHS Brimonidine Tartrate/Timolol (Combigan 0.2%-0.5% Eye Drops) 1 Araceli Araceli, 1 DROP OU BID, (Reported) Cholecalciferol (Vitamin D3) (Vitamin D3) 1,000 Unit Tablet, 2,000 UNIT PO DAILY, (Reported) Doxycycline Hyclate (Doxycycline Hyclate) 100 Mg Tablet, 100 MG PO BID Ferrous Gluconate (Ferrous Gluconate) 324 Mg Tab, 324 MG PO DAILY Garlic (Garlic) 500 Mg Tablet, 1,000 MG PO QHS, (Reported) Hydralazine HCl (Hydralazine HCl) 10 Mg Tablet, 10 MG PO BID, (Reported) Insulin Glargine,Hum.rec.anlog (Lantus Solostar) 100 Unit/Ml Inj, 40 UNITS SC DAILY Levothyroxine Sodium (Levothyroxine Sodium) 50 Mcg Tab, 50 MCG PO DAILY Magnesium Gluconate (Mag-G) 500 Mg Tab, 250 MG PO DAILY Pentoxifylline (Pentoxifylline) 400 Mg Tabcr, 400 MG PO DAILY, (Reported) Potassium Chloride (Potassium Chloride) 10 Meq Tab, 10 MEQ PO DAILY Rosuvastatin Calcium (Rosuvastatin Calcium) 5 Mg Tab, 5 MG PO QHS Scheduled PRN Oxycodone/Acetaminophen (Oxycodone-Acetaminophen 5-325) 1 Each Tablet, 1 TAB PO Q4HP PRN for MILD/MODERATE PAIN (PS 1-7) Allergies Coded Allergies: clopidogrel (Verified Allergy, Unknown, 08/16/18) NASIM SMITH DO Sep 01, 2018 13:08
--- NOTE | 2018-09-02 16:01 | IPN ---
DATE: 09/01/2018 SUBJECTIVE: Anu is seen and examined this morning at the bedside. is present. She denies any overnight complaints. She had the angiogram yesterday with Dr. Durbin and she had two stents placed. She received IV fluid post contrast administration. She is discharge pending. Temperature 98.0, pulse 71, respiratory rate 17, blood pressure 142/72, saturating 95% on room air. Intake yesterday was not fully recorded. Urine output yesterday was 1200 mL. Weight in the bed scale today is not recorded. GENERAL: The patient is seen sitting in the wheelchair, awake, alert and oriented times three, in no acute distress. Moist mucous membranes. Neck is supple. Jugular veins are not elevated. CARDIAC: S1, S2, regular rate and rhythm. LUNGS: Clear to auscultation bilaterally. No crackle or rale. ABDOMEN: Soft, obese with significant pannus. EXTREMITIES: Show right [id number] amputation and left lower extremity with pretibial wound and bandaged foot. There is some edema in the dependent areas. NEUROLOGIC: She is oriented times three. No focal deficit. LABORATORY DATA: White count 8.7, hemoglobin 10.1, sodium 143, potassium 4.3, bicarbonate 25, BUN 26, creatinine 1.0. INPATIENT MEDICATIONS: Reviewed by myself. IV fluids were discontinued overnight. PROBLEMS: 1. Chronic kidney disease (CKD), stage III. Her renal function is at her usual baseline. Creatinine is 1.0. She had a contrast procedure on 08/25/2018 and another contrast procedure on 08/31/2018. Her renal function is stable. Volume status is acceptable. Electrolytes are acceptable. She is pending discharge. She will followup in the nephrology office and no changes are being made to her usual home medications. 2. Peripheral arterial disease with left lower extremity wound, status post angiogram on 08/25/2018 and status post angiogram again yesterday with stent placement times two. She will followup with vascular surgery. She has tolerated the contrast administration.
--- NOTE | 2018-10-04 13:50 | RO ---
DATE OF PROCEDURE: 08/31/2018 ATTENDING SURGEON: Mateo Durbin MD ASSISTANTS: De Yañez and Karen Pitts PREOPERATIVE DIAGNOSES: Nonhealing left heel ulcer, bilateral venous valvular insufficiency. POSTOPERATIVE DIAGNOSES: Nonhealing left heel ulcer, bilateral venous valvular insufficiency. PROCEDURES: Selective right common femoral arterial cannulation, selective left common femoral artery cannulation, left popliteal artery angioplasty and stenting, left superficial femoral artery angioplasty and stenting, left common femoral artery angioplasty with 6 x 200 balloon, right common femoral arterial Mynx closure device. INDICATION: The patient is a 68-year-old female with nonhealing left heel ulcer and severe atherosclerotic arterial occlusive disease and venous valvular insufficiency. The patient will undergo an angiogram with possible angioplasty, stent, and/or atherectomy. ANESTHESIA: Local with sedation, 1 mg Versed and 50 mcg of fentanyl. FLUORO TIME: 6.4 minutes. CONTRAST: 5 mL of Isovue-300. HEPARIN: 7000 units. PROTAMINE: 50 mg. COMPLICATIONS: None. DRAINS: None. SPECIMENS: None. DESCRIPTION OF PROCEDURE: The patient was taken to the angiography suite, placed supine on the angiography room table, then prepped and draped in a standard surgical fashion. The right common femoral artery was cannulated and a catheter placed in left common femoral artery, and angiogram showed severe disease and stenosis along the common femoral superficial femoral and popliteal artery. The left popliteal artery was angioplastied and stented. The left superficial femoral artery was angioplastied and stented. The left common femoral artery underwent angioplasty with a 6 x200 balloon. A completion angiogram showed resolution of the stenosis. The catheters were removed, and a Mynx closure device was used close the arteriotomy in the right common femoral artery. Dressings were applied. The patient tolerated the procedure well. All instrument, sponge, and needle counts were correct at the end of the case. There were no complications. Dr. Durbin was present for and directed the entire case. The patient was transferred to the holding area and subsequently to the floor in stable condition. edited: 10/09/2018 0754 tkf MTDD
--- NOTE | 2018-10-05 08:14 | RO ---
DATE OF PROCEDURE: 08/20/2018 ATTENDING SURGEON: Dr. Mateo Durbin TOOL WORKER: None. PREOPERATIVE DIAGNOSIS: Nonhealing left heel wound. POSTOPERATIVE DIAGNOSIS: Nonhealing left heel wound. PROCEDURE: Excisional debridement with removal of skin, subcutaneous tissue and muscle of the left heel wound which measures approximately 3 cm x 5 cm x 3 mm in depth. ANESTHESIA: Monitored anesthesia care (MAC). ESTIMATED BLOOD LOSS: 5 mL. IV FLUIDS: 75 mL. HEPARIN: None. COMPLICATIONS: None. DRAINS: None. SPECIMEN: Tissue sent for culture and sensitivity. PROCEDURE: The patient was taken to the operating room, placed supine on the operating room table and then prepped and draped in a standard surgical fashion. Sharp debridement of the heel was performed using scalpel and tooth pickups with removal of all nonviable tissue down to healthy bleeding tissue. Dressings were then applied. The patient tolerated procedure well. All instruments, sponges, and needle counts were correct at the end the case. There were no complications. Dr. Durbin was present for and directed the entire case. The patient was transferred to the recovery room and subsequently to the floor in stable condition.
--- NOTE | 2018-10-05 08:25 | RO ---
DATE OF PROCEDURE: 08/25/2018 ATTENDING SURGEON: Dr. Elliot Durbin TUBE TRAILER FILLER: None. PREOPERATIVE DIAGNOSIS: Nonhealing left heel ulcer. POSTOPERATIVE DIAGNOSIS: Nonhealing left heel ulcer. ANESTHESIA: PROCEDURE: Left heel debridement. INDICATION: The patient has a nonhealing left heel wound that requires debridement. DESCRIPTION OF PROCEDURE: The patient was taken the operating room, placed supine on the operating room table, and then prepped and draped in a standard surgical fashion. The left heel wound underwent sharp debridement down to healthy bleeding tissue and then dressings were applied. The patient tolerated the procedure well. All instrument, sponge, needle counts were correct at the end of the case. There were no complications. Dr. Durbin was present for and directed the entire case. The patient was transferred to the recovery room and subsequently to the floor in stable condition.
== END 2018-09-01 14:38 | disposition home or self-care (01) | DRG 253 ==
LOC: M ED 10:21 → M ED INP 15:58 → M MSPAV 20:29
PROVIDERS: ADMIT Hospitalist; ATTEND Family Medicine
PROC: 0KBW0ZZ Excision of Left Foot Muscle, Open Approach (ICD-10-PCS; principal; 2018-08-20 10:00)
PROC: 0HDNXZZ Extraction of Left Foot Skin, External Approach (ICD-10-PCS; 2018-08-25)
PROC: 047L3DZ Dilation of Left Femoral Artery with Intraluminal Device, Percutaneous Approach (ICD-10-PCS; 2018-08-31)
PROC: 047N3DZ Dilation of Left Popliteal Artery with Intraluminal Device, Percutaneous Approach (ICD-10-PCS; 2018-08-31)
DX: E11.51 Type 2 diabetes mellitus with diabetic peripheral angiopathy without gangrene (principal); Z68.42 Body mass index [BMI] 45.0-49.9, adult; L03.116 Cellulitis of left lower limb; Z89.611 Acquired absence of right leg above knee; I12.9 Hypertensive chronic kidney disease with stage 1 through stage 4 chronic kidney disease, or unspecified chronic kidney disease; E11.22 Type 2 diabetes mellitus with diabetic chronic kidney disease; E11.621 Type 2 diabetes mellitus with foot ulcer; N18.3 Chronic kidney disease, stage 3 (moderate); E66.01 Morbid (severe) obesity due to excess calories; E78.5 Hyperlipidemia, unspecified; E03.9 Hypothyroidism, unspecified; E11.65 Type 2 diabetes mellitus with hyperglycemia; Z90.49 Acquired absence of other specified parts of digestive tract; Z98.49 Cataract extraction status, unspecified eye; Z95.820 Peripheral vascular angioplasty status with implants and grafts; Z79.82 Long term (current) use of aspirin; Z79.4 Long term (current) use of insulin; Z79.899 Other long term (current) drug therapy; Z88.8 Allergy status to other drugs, medicaments and biological substances

== ENCOUNTER → 2018-09-26 | Outpatient (CLI) | payer MEDICARE, BC ==
[~2018-09-26] MED LIST changes: +AMLO25TA PO; +AMOX500T2 PO; +D31000TA PO; +DOXY100T PO; +HM G1TAB PO; +HYDR10TAB PO; +PERCOCET PO
--- NOTE | 2018-09-26 12:20 | REP ---
REASON FOR EXAM: Claudication. Ankle brachial index was unobtainable due to nonvisualization of the necessary vessels. PEAK SYSTOLIC VELOCITY LEFT COMBINATION WELDER APPRENTICE 216 cm/s Biphasic Profunda 118 cm/s Biphasic SFA Proximal 183 cm/s Monophasic SFA Mid 134 cm/s Monophasic SFA distal 85.1 cm/s Monophasic Popliteal 103 cm/s Monophasic Anterior tibial artery proximal 44.6 cm/s Monophasic Tibioperoneal Trunk 143 cm/s Monophasic Posterior tibial Artery proximally 18 cm/s Monophasic The posterior tibial artery distal and the anterior tibial artery were not visualized. There is evidence of a shunt patency seen proximal superficial femoral artery to mid superficial femoral artery. ? Electronically Signed by Ned Raymundo DO 09/26/2018 04:08 P
== END ==
LOC: M RAD 10:15
PROVIDERS: ATTEND Surgery Vascular Surgery
DX: I70.412 Atherosclerosis of autologous vein bypass graft(s) of the extremities with intermittent claudication, left leg (principal)

== ENCOUNTER → 2020-02-12 | Outpatient (CLI) | payer MEDICARE, BC ==
[~2020-02-12] MED LIST changes: +ACET650T61 PO; -AMLO10TA5 PO; +AMLO1TAB24 PO; +AMLO1TAB25 PO; -AMLO5TAB6 PO; -METF-791 PO; +METF-838 PO; -TYLE650T35 PO
--- NOTE | 2020-02-15 08:50 | SLEEPHOME ---
DATE: 02/12/2020 ORDERED BY: Rell Lennon MD Diagnostic home sleep testing was performed due to concern for the obstructive sleep apnea syndrome. For testing, a nocturnal T3 respiratory monitoring device was used. Continuous record was made of pulse, oxygen saturation, air flow, chest and abdominal strain, and body position. Nine hours and 59 minutes of data were reviewed. There were 8 hours and 20 minutes marked as time in bed. During the interval marked time in bed, there were 71 respiratory events identified of 10 seconds in duration or greater for a respiratory event index of 8.5. The events were primarily obstructive. Baseline pulse rate was 61 beats per minute. Pulse rate ranged 40 to 88. Baseline saturation was 92%. Saturations fell to 82%. Testing was performed in both the supine and nonsupine positions. IMPRESSION: Abnormal home sleep testing with repetitive respiratory events and oxygen desaturations to 82% with a respiratory event index of 8.5 is consistent with the obstructive sleep apnea syndrome. RECOMMENDATION: The patient should be encouraged to undergo a formal sleep evaluation. [facility]
== END ==
LOC: M SLEEP HO 09:56
PROVIDERS: ATTEND Internal Medicine Cardiovascular Disease
DX: R06.83 Snoring (principal)

== ENCOUNTER → 2020-12-04 | Outpatient (CLI) | payer MEDICARE, BC ==
[~2020-12-04] MED LIST changes: +D31000TA2 PO; +FERR324T21 PO; -FERR325T16 PO; +GARL500C2 PO; +ISOS1TAB36 PO; +ROSU20TA5 PO; +SOLI1INJ SC; +SPIR-10 PO; +XALA0.007 OU
== END ==
LOC: M LABSMTC 11:14
PROVIDERS: ATTEND Anesthesiology
DX: Z01.812 Encounter for preprocedural laboratory examination (principal); Z20.822 Contact with and (suspected) exposure to COVID-19

== ENCOUNTER 2020-12-09 13:30 | Day surgery (SDC) | payer MEDICARE, BC ==
[~2020-12-09] VITALS: Ht 152.4 cm; Wt 105.7 kg
[~2020-12-09 13:30] MED LIST changes: +LIDOCAINE 2% 100MG/5ML SDV (FOR ANES.) As Ordered ONE; +LR 1,000 ML IV ONE; +MIDAZOLAM INJ 2MG/2ML VIAL (J2250 PER 1MG) As Ordered ONE; +ONDANSETRON 4MG/2ML VIAL As Ordered ONE; +ceFAZolin SOD 2 GM in IV 1 EA IV ONE; +fentaNYL 100 MCG/2 ML INJECTION (J3010) As Ordered ONE; +propofoL 200 MG/20 ML VIAL As Ordered ONE
[2020-12-09] MEDS ORDERED: MUPIROCIN 2% OINT 22 GM TUBE As Ordered ONE (14:01)
[2020-12-09] MEDS ORDERED: LIDOCAINE 1% SDV 30ML VIAL As Ordered ONE (14:01)
[2020-12-09] MEDS ORDERED: ISOVUE-300 61% 50ML VIAL As Ordered ONE (14:02)
[2020-12-09] MEDS ORDERED: VANCOMYCIN 1000MG/20ML VIAL As Ordered ONE (14:02)
[2020-12-09 14:35] LABS: HEMATOCRIT 36.2 % (36.0-47.0); HEMOGLOBIN 12.5 g/dl (12.0-15.5); MEAN CORPUSCULAR HEMOGLOBIN 31.5 pg (27.0-33.0); MEAN CORPUSCULAR HGB CONC 34.5 g/dl (32.0-36.5); MEAN CORPUSCULAR VOLUME 91.2 fl (80.0-96.0); PLATELET COUNT, AUTOMATED 275 10^3/uL (150-450); RED BLOOD COUNT 3.97 10^6/uL (4.00-5.40); WHITE BLOOD COUNT 10.9 10^3/uL (4.0-10.0)
[2020-12-09 14:54] LABS: CALCIUM LEVEL 9.7 MG/DL (8.8-10.2); CREATININE FOR GFR 1.81 MG/DL (0.55-1.30); GLOMERULAR FILTRATION RATE 29.4 (>39)
[2020-12-09] MEDS: ceFAZolin SOD 1 GM in D5W MINI-BAG PLUS 50 ML IV SCH (15:00)
[2020-12-09] MEDS ORDERED: propofoL 200 MG/20 ML VIAL As Ordered ONE ×3 (16:08→17:24)
[2020-12-09] MEDS ORDERED: fentaNYL 100 MCG/2 ML INJECTION (J3010) As Ordered ONE (16:44)
[2020-12-09] MEDS ORDERED: MIDAZOLAM INJ 2MG/2ML VIAL (J2250 PER 1MG) As Ordered ONE (16:50)
[2020-12-09] MEDS ORDERED: ONDANSETRON 4MG/2ML VIAL IV PRN (18:35)
[2020-12-09] MEDS ORDERED: LR 1,000 ML IV SCH (18:35)
[2020-12-09] MEDS ORDERED: fentaNYL 100 MCG/2 ML INJECTION (J3010) IV PRN (18:35)
--- NOTE | 2020-12-09 18:35 | ECGEPIP ---
[facility] Test Date: 2020-12-09 Pat Name: JUAN MANUEL WHITESIDE Department: Room: - Gender: Female Ophthalmic Tech: elizabeth : 1950 Requested By: Rell Lennon Order Number: [id number] Reading MD: Rickey Esquivel Measurements Intervals [place] Rate: 75 P: 35 AL: 308 QRS: -12 QRSD: 78 T: 74 QT: 374 QTc: 417 Interpretive Statements Sinus rhythm with 1st degree AV block Intermittent atrial pacing Low voltage QRS Cannot rule out Anteroseptal infarct Suspicion for anteroseptal [place] is new since 10/11/17 Electronically Signed on 12-09-2020 18:34:39 EDT by Rickey Esquivel
--- NOTE | 2020-12-09 18:40 | REP ---
INDICATION: POST OP IN PACU. COMPARISON: 08/21/2018. TECHNIQUE: Single portable AP view of the chest was performed. FINDINGS: There is no acute infiltrate or pneumothorax. There is mild cardiomegaly. There is a left 2 lead pacemaker with atrial and ventricular leads appearing to be in good position. Mediastinal silhouette is unremarkable. IMPRESSION: No acute infiltrate or pneumothorax. Left 2 lead pacemaker appears to be in good position. <Electronically signed by Fercho Arcos > 12/09/20 [id number]
--- NOTE | 2020-12-09 18:45 | REP ---
INDICATION: PACEMAKER IMPLANT. COMPARISON: None. TECHNIQUE: Two C-arm views chest. FINDINGS: There is a left 2 lead pacemaker. Atrial and ventricular leads appear to be in good position. IMPRESSION: 11 minutes 34 seconds fluoroscopy time utilized. <Electronically signed by Fercho Arcos > 12/09/20 [id number]
[2020-12-09] MEDS: ACETAMINOPHEN TAB 650MG DOSE (2X325MG) PO PRN (20:02)
[2020-12-09] MEDS ORDERED: ROSUVASTATIN 10 MG TAB (CRESTOR) PO SCH (21:00)
[2020-12-09] MEDS ORDERED: HumaLOG INSULIN (NovoLOG) PER UNIT SC SCH (21:00)
[2020-12-09 21:15] VITALS: BP 188/80
[2020-12-09 22:15] VITALS: BP 188/80
[2020-12-09] MEDS: **hydrALAZINE** 10 MG TAB PO SCH (22:15)
[2020-12-09] MEDS: PENTOXIFYLLINE 400 MG TAB PO SCH (22:15)
[2020-12-10] VITALS: BP 162/62
[2020-12-10] MEDS: ACETAMINOPHEN TAB 650MG DOSE (2X325MG) PO PRN (01:09)
[2020-12-10 04:00] VITALS: BP 172/74
[2020-12-10] MEDS ORDERED: LEVOTHYROXINE 50MCG TABLET (0.05MG) PO SCH (06:00)
[2020-12-10 07:39] VITALS: BP 178/76
--- NOTE | 2020-12-10 08:32 | REP ---
INDICATION: pacemaker/ before 10 am please COMPARISON: 12/09/2020. TECHNIQUE: PA/Lateral FINDINGS: There is patchy atelectasis or infiltrate in the right lower lobe. Left lung is clear. There is no pneumothorax. There is mild cardiomegaly. The mediastinal silhouette is unremarkable and unchanged. Left pacemaker is noted with atrial and ventricular leads in good position. There are mild degenerative changes of the spine. IMPRESSION: Patchy right lower lobe atelectasis/infiltrate. Mild cardiomegaly. Left dual lead pacemaker appears to be in good position. <Electronically signed by Fercho Arcos > 12/10/20 [id number]
[2020-12-10] MEDS: PENTOXIFYLLINE 400 MG TAB PO SCH (08:42)
[2020-12-10] MEDS: HumaLOG INSULIN (NovoLOG) PER UNIT SC SCH ×2 (08:42→13:53)
[2020-12-10] MEDS: **hydrALAZINE** 10 MG TAB PO SCH (08:43)
--- NOTE | 2020-12-10 08:54 | RO ---
OPERATIVE NOTE DATE OF OPERATION: 12/09/2020 PREOPERATIVE DIAGNOSIS: High grade second degree AV block. POSTOPERATIVE DIAGNOSIS: High grade second degree AV block. FINDINGS: High grade second degree AV block. PROCEDURE PERFORMED: Implantation of a permanent Medtronic dual-chamber pacemaker. SURGEON: Rell Lennon M.D. MARKETING INFORMATION ANALYST: None. ANESTHESIA: Lidocaine 1% local and monitored anesthetic care as administered by [employer]. SPECIMENS: None. ESTIMATED BLOOD LOSS: 15 mL. BLOOD PRODUCTS REPLACED: None. DRAINS: None. COMPLICATIONS: None. PROCEDURE DESCRIPTION: Patient was prepped and draped over the left pectoral region. 3M [place] film was applied. Lidocaine 1% was used for local anesthetic. A left subclavian venogram was performed using 20 mL of a solution containing five parts to one Isovue/normal saline. This was injected via a peripheral vein in the left upper extremity. This was used in real time to obtain percutaneous venous access into the left subclavian vein with a micropuncture needle. This micropuncture needle was then guidewire exchanged for a guidewire that came with one of the 7 Malian sheaths. Next, incision approximately 3 to 3-1/2 inches in length was made using PEAK PlasmaBlade. The PEAK PlasmaBlade was used to get through the fatty layer and the fibers of Bee's fascia. A pacemaker pocket was then formed using blunt dissection using two fingers to separate the prepectoral fascia from the Bee's fascia in a caudal direction. The guidewire was then pulled through the skin into the incision site. Next, a 7 Malian sheath was introduced and was placed over the guidewire and advanced into the left subclavian vein. The introducer was removed, leaving the sheath in place. Next, a second guidewire from the other 7 Malian sheath was placed alongside the first guidewire within the sheath. Next, the sheath was removed, leaving the two guidewires in the left subclavian vein. The introducer was then placed back into the 7 Malian sheath and then a combination of the sheath and introducer were placed over one of the two guidewires advanced into the left subclavian vein. This was used for vein access for the right ventricular lead. The right ventricular lead was placed under fluoroscopic guidance in the vicinity of the right ventricle apex and secured with a total of eight turns. This was positioned. It was found to be electrically and anatomically satisfactory. Next, the 7 Malian sheath was broken apart and removed. Next, the other 7 Malian sheath with introducer was placed over the other remaining guidewire and advanced into the left subclavian vein. This was used for vein access for the right atrial lead. The right atrial lead was placed into the vicinity of the right atrial appendage with the help of a preformed J stylet (white handled stylet, curved). It was secured with a total of 10 turns. This position was found to be electrically and anatomically satisfactory. The preformed J stylet was removed. Next, the atrial and ventricular leads were secured to the pectoral muscle supplied tie-down sleeves with two sutures applied to each sleeve to secure it to the pectoral muscle using 0 Ethibond suture material. Next, another 0 Ethibond suture was placed in the aspect of the pacemaker pocket to serve as a tie-down for the pacemaker pulse generator. I then took a medium-sized TYRX antimicrobial envelope and cut it into four pieces which were placed into the pacemaker pocket. Next the terminal pins of the atrial and ventricular leads were placed into their respective ports in the header of the pacemaker pulse generator and each one was secured by tightening the set screws with hex screwdriver. A pull test was applied to each lead to demonstrate it was secure within the header. Next, the excess lead material was coiled underneath the pacemaker pulse generator and placed along with the pacemaker pulse generator into the pacemaker pocket. The pacemaker pulse generator was then secured to the pectoral muscle using the previously placed 0 Ethibond suture. The deep layer was closed using individual sutures consisting of 2-0 Vicryl. The more superficial layer was closed using individual sutures consisting of 3-0 Vicryl. [place] were then used to close the skin. This was followed by application of Bactroban ointment followed by Telfa, followed by a sterile dry dressing, followed by bio-occlusive dressing. A left arm sling was applied as well. The patient tolerated the procedure well without any immediate complications. The pacemaker pulse generator implanted was a SEJENT Luann XT DR COREY with model #W1DR01 with serial #[id number]. The right atrial lead implanted was a Medtronic model 464142, 45 cm in length with serial #[id number]. Testing with the pulse analyzer in the operating room for the right atrial lead showed in bipolar configuration capture threshold of 0.5 volts and 0.4 milliseconds with lead impedance of 456 ohms and P amplitude of 4.1 millivolts. Device based testing in the operating room for the right atrial lead showed P wave amplitude of 4.1 millivolts with lead impedance of 475 ohms and capture threshold of 0.5 volts at 0.4 milliseconds. The right ventricular lead implanted was a [employer] model 085341, 2 cm in length with serial #[id number]. Testing in the operating room for the right ventricular lead in bipolar configuration with the pulse analyzer showed capture threshold of 0.8 volts at 0.4 milliseconds with lead impedance of 741 ohms and R wave amplitude of 14.7 millivolts. Device based testing for the right ventricular lead in the operating room showed right ventricle sensing R waves of 14.9 millivolts for lead impedance of 741 ohms and capture threshold of 0.75 volts at 0.4 milliseconds.
[2020-12-10] MEDS ORDERED: ISOSORBIDE MON. (IMDUR) 60 MG XR TAB PO SCH (09:00)
[2020-12-10] MEDS ORDERED: VITAMIN D 1,000 INTERNATIONAL UNITS TABLET PO SCH (09:00)
[2020-12-10] MEDS ORDERED: amLODIPine 5 MG TAB PO SCH (09:00)
[2020-12-10] MEDS ORDERED: ASCORBIC ACID 250 MG TAB PO SCH (09:00)
[2020-12-10] MEDS ORDERED: ASPIRIN ENTERIC 325 MG TAB PO SCH (09:00)
[2020-12-10] MEDS ORDERED: FUROSEMIDE 40 MG TAB PO SCH (09:00)
[2020-12-10] MEDS ORDERED: SPIRONOLACTONE 25 MG TAB PO SCH (09:00)
[2020-12-10 12:11] VITALS: BP 154/68
== END 2020-12-10 16:54 | disposition home or self-care (01) ==
LOC: M SDC 13:30 → M PCU 20:55 → UNDOADMIN 21:39 → M PCU 21:39 → M SDC 21:53 → UNDODISIN 12-10 16:54 → M SDC 12-10 16:54
PROVIDERS: ATTEND Internal Medicine Cardiovascular Disease
DX: I44.1 Atrioventricular block, second degree (principal); I13.0 Hypertensive heart and chronic kidney disease with heart failure and stage 1 through stage 4 chronic kidney disease, or unspecified chronic kidney disease; I50.30 Unspecified diastolic (congestive) heart failure; E03.9 Hypothyroidism, unspecified; N18.9 Chronic kidney disease, unspecified; E10.22 Type 1 diabetes mellitus with diabetic chronic kidney disease; E66.9 Obesity, unspecified; E10.51 Type 1 diabetes mellitus with diabetic peripheral angiopathy without gangrene; G47.30 Sleep apnea, unspecified; R06.83 Snoring; H40.9 Unspecified glaucoma; Z89.611 Acquired absence of right leg above knee; Z79.82 Long term (current) use of aspirin; Z79.899 Other long term (current) drug therapy; Z88.8 Allergy status to other drugs, medicaments and biological substances; Z99.3 Dependence on wheelchair
CPT/HCPCS: 33208; 36415; 71045; 71046; 76000; 80048; 85027; 93005; C1785; C1898; J0690; J2250; J2405; J3010; Q9967

== ENCOUNTER → 2020-12-29 | Outpatient (REF) | payer MEDICARE, BC ==
[~2020-12-29] MED LIST changes: -LIDOCAINE 2% 100MG/5ML SDV (FOR ANES.) As Ordered ONE; -LR 1,000 ML IV ONE; -MIDAZOLAM INJ 2MG/2ML VIAL (J2250 PER 1MG) As Ordered ONE; -ONDANSETRON 4MG/2ML VIAL As Ordered ONE; -ceFAZolin SOD 2 GM in IV 1 EA IV ONE; -fentaNYL 100 MCG/2 ML INJECTION (J3010) As Ordered ONE; -propofoL 200 MG/20 ML VIAL As Ordered ONE
== END ==
LOC: M LAB REF 17:15
PROVIDERS: ATTEND Internal Medicine Nephrology
DX: E83.42 Hypomagnesemia (principal)